=== PATIENT | male | born 1990 | race American Indian/Alaskan Native ===

== ENCOUNTER 2016-07-05 14:57 | Emergency (ER) | payer SELFPAY ==
[2016-07-05 15:14] VITALS: BP 105/69
[2016-07-05] MEDS ORDERED: REGLAN IV ONE (16:35)
--- NOTE | 2016-07-05 16:35 | Emergency Department Report ---
ED Headache HPI - General Chief Complaint: Headache Stated Complaint: MIGRAINES Time Seen by Provider: 07/05/16 16:23 - History of Present Illness Initial Comments: 26-year-old male past medical history migraine headaches presents with complaint of 2-3 days of migraine headache worsening waxing and waning patient states that he took Motrin with only mild relief of pain. Patient states that he classically experiences mild photophobia when he gets migraine headaches. Denies any fevers chills or neck rigidity currently. Awake alert and oriented 3 does not appear to be in acute distress denies any nausea or vomiting. Denies any head trauma. Timing/Duration: 24 hours, waxing and waning Quality: moderate Head Injury Location: frontal Recent Head Trauma: frequent headaches Modifying Factors: improves with: exposure to light Allergies/Adverse Reactions: Allergies No Known Allergies Allergy (Verified 06/19/13 09:46) Home Medications: Ambulatory Orders Ibuprofen [Motrin] 600 mg PO Q8H PRN #20 tablet 06/18/13 Metoclopramide [Reglan] 10 mg PO BID PRN #12 tab 07/05/16 Naproxen [Naprosyn TAB] 500 mg PO BID PRN #25 tablet 07/05/16 ED Review of Systems ROS: Stated complaint: MIGRAINES Other details as noted in HPI Constitutional: denies: chills, fever Eyes: denies: eye pain, eye discharge, vision change ENT: denies: ear pain, throat pain Respiratory: denies: cough, shortness of breath, wheezing Cardiovascular: denies: chest pain, palpitations Endocrine: no symptoms reported Gastrointestinal: denies: abdominal pain, nausea, diarrhea Genitourinary: denies: urgency, dysuria Musculoskeletal: denies: back pain, joint swelling, arthralgia Skin: denies: rash, lesions Neurological: denies: headache, weakness, paresthesias Psychiatric: denies: anxiety, depression Hematological/Lymphatic: denies: easy bleeding, easy bruising ED Past Medical Hx - Past Medical History Hx Headaches / Migraines: Yes Hx Psychiatric Treatment: Yes (Per Pt - In [place] about 6 years ago) Additional medical history: anemia, sinus problems - Social History Smoking Status: Current Every Day Smoker Substance Use Type: None - Medications Home Medications: Home Medications Medication Instructions Recorded Confirmed Last Taken Type Ibuprofen [Motrin] 600 mg PO Q8H PRN #20 tablet 06/18/13 02/25/15 06/19/13 05: 30 Rx Metoclopramide [Reglan] 10 mg PO BID PRN #12 tab 07/05/16 Unknown Rx Naproxen [Naprosyn TAB] 500 mg PO BID PRN #25 tablet 07/05/16 Unknown Rx ED Physical Exam - General Limitations: No Limitations General appearance: alert, in no apparent distress - Head Head exam: Present: atraumatic, normocephalic - Eye Eye exam: Present: normal appearance, PERRL, EOMI - ENT ENT exam: Present: mucous membranes moist - Neck Neck exam: Present: normal inspection, full ROM - Respiratory Respiratory exam: Present: normal lung sounds bilaterally. Absent: respiratory distress - Cardiovascular Cardiovascular Exam: Present: regular rate, normal rhythm. Absent: systolic murmur, diastolic murmur, rubs, gallop - GI/Abdominal GI/Abdominal exam: Present: soft, normal bowel sounds - Rectal Rectal exam: Present: deferred - Extremities Exam Extremities exam: Present: normal inspection - Back Exam Back exam: Present: normal inspection - Neurological Exam Neurological exam: Present: alert, oriented X3, CN II-XII intact, normal gait - Expanded Neurological Exam Expanded Patient oriented to: Present: person, place, time Cerebellar function: Finger to Nose: Normal, Heel to [place]: Normal, Romberg: Normal Sensory exam: Upper Extremity Light Touch: Normal, Lower Extremity Light Touch: Normal Motor strength exam: RUE: 5, LUE: 5, RLE: 5, LLE: 5 Best Eye Response ([place]): (4) open spontaneously Best Motor Response ([place]): (6) obeys commands Best Verbal Response ([place]): (5) oriented [place] Total: 15 - Psychiatric Psychiatric exam: Present: normal affect, normal mood - Skin Skin exam: Present: warm, dry, intact, normal color. Absent: rash ED Course Vital Signs 07/05/16 15:11 Temperature 98.6 F Pulse Rate 65 Respiratory 18 Rate Blood Pressure 105/69 O2 Sat by Pulse 100 Oximetry ED Medical Decision Making - Medical Decision Making A/P: Migraine headache 1-patient feels significant relief of migraine with 1 dose of Reglan, headache currently 2 out of 10 initially 9 out of 10 2-discharge patient with Reglan and naproxen when necessary 3-will give patient follow up with primary care and neurology as patient states he has not seen a neurologist for his history of migraine headaches has been experiencing migraines since he was a child 4-patient has no neurological deficits on clinical exam Critical care attestation.: If time is entered above; I have spent that time in minutes in the direct care of this critically ill patient, excluding procedure time. ED Disposition Clinical Impression: Migraine Qualifiers: Migraine type: without aura Status migrainosus presence: without status migrainosus Intractability: not intractable Qualified Code(s): G43.009 - Migraine without aura, not intractable, without status migrainosus Disposition: DISCHARGED TO HOME OR SELFCARE Is pt being admited?: No Does the pt Need Aspirin: No Condition: Stable Instructions: Migraine Headache (ED), Acute Headache (ED) Prescriptions: Metoclopramide [Reglan] 10 mg PO BID PRN #12 tab PRN Reason: Headache Naproxen [Naprosyn TAB] 500 mg PO BID PRN #25 tablet PRN Reason: Headache Referrals: DELISA GAMA MD [Staff Physician] - 3-5 Days [facility] [Provider Group] - 3-5 Days JULIO MILLER MD [Staff Physician] - 3-5 Days Time of Disposition: 17:54
== END 2016-07-05 18:09 | disposition home or self-care (01) ==
LOC: ED 14:57
DX: G43.009 Migraine without aura, not intractable, without status migrainosus (principal); F17.200 Nicotine dependence, unspecified, uncomplicated
CPT/HCPCS: 96374; 99282; J2765

== ENCOUNTER 2016-09-05 17:15 | Emergency (ER) | payer SELFPAY ==
[2016-09-05 17:48] LABS: Basophils % (Auto) 0.5 % (0.0-1.8); Eosinophils % (Auto) 1.5 % (0.0-4.3); Hematocrit 43.5 % (35.5-45.6); Hemoglobin 13.7 gm/dl (11.8-15.2); Mean Corpuscular HGB Conc 32 % (32-34); Mean Corpuscular Volume 80 fl (84-94); Platelet Count 228 K/mm3 (140-440); Red Blood Count 5.42 M/mm3 (3.65-5.03); Red Cell Distribution Width 15.7 % (13.2-15.2); White Blood Count 5.2 K/mm3 (4.5-11.0)
[2016-09-05 17:56] LABS: Mean Corpuscular Hemoglobin 25 pg (28-32)
[2016-09-05 18:04] LABS: Anion Gap 15 mmol/L; Blood Urea Nitrogen 13 mg/dL (9-20); Carbon Dioxide 27 mmol/L (22-30); Chloride 103.5 mmol/L (98-107); Glucose 85 mg/dL (75-100); Potassium 3.9 mmol/L (3.6-5.0); Sodium 142 mmol/L (137-145)
[2016-09-05 20:28] VITALS: BP 105/65
--- NOTE | 2016-09-05 21:47 | Emergency Department Report ---
ED Chest Pain HPI - General Chief Complaint: Chest Pain Stated Complaint: CHEST PAIN/HEADACHE Time Seen by Provider: 09/05/16 21:35 Source: patient Mode of arrival: Ambulatory Limitations: No Limitations - History of Present Illness Initial Comments: 26-year-old male with no past medical history presenting to the emergency room complaining of chest pain. Patient states pain started approximately 2 months prior. Patient believes the inciting factor is because he smoke cigarettes. Patient states pain is located in his anterior chest wall, pressure sensation, nonradiating no relaxing or worsening factors. He states he was on his way to work today when he decided that he should evaluate the pain because he did wanted to be getting serious. Patient states now the pain is totally resolved while in ED MD Complaint: chest pain -: month(s) (2) Onset: during rest Pain Location: other (anterior chest wall ) Pain Radiation: none Severity: moderate Severity scale (0 -10): 0 Quality: aching, heaviness Consistency: intermittent Improves With: nothing Worsens With: nothing Other Symptoms: cough. denies: rash, acid taste in mouth, leg swelling, palpitations, burping - Related Data Previous Rx's Medication Instructions Recorded Last Taken Type Ibuprofen [Motrin] 600 mg PO Q8H PRN #20 tablet 06/18/13 06/19/13 05:30 Rx Metoclopramide [Reglan] 10 mg PO BID PRN #12 tab 07/05/16 Unknown Rx RX: Naproxen [Naprosyn TAB] 500 mg PO BID PRN #25 tablet 07/05/16 Unknown Rx Allergies Allergy/AdvReac Type Severity Reaction Status Date / Time No Known Allergies Allergy Verified 06/19/13 09:46 Heart Score - HEART Score History: Slightly suspicious EKG: Non-specific Age: < 45 Risk factors: No known risk factors Troponin: < normal limit HEART Score: 1 ED Review of Systems ROS: Stated complaint: CHEST PAIN/HEADACHE Other details as noted in HPI Constitutional: denies: chills, fever Eyes: denies: eye pain, eye discharge, vision change ENT: denies: ear pain, throat pain Respiratory: denies: cough, shortness of breath, wheezing Cardiovascular: chest pain. denies: palpitations Endocrine: no symptoms reported Gastrointestinal: denies: abdominal pain, nausea, diarrhea Genitourinary: denies: urgency, dysuria Musculoskeletal: denies: back pain, joint swelling, arthralgia Skin: denies: rash, lesions Neurological: denies: headache, weakness, paresthesias Psychiatric: denies: anxiety, depression Hematological/Lymphatic: denies: easy bleeding, easy bruising ED Past Medical Hx - Past Medical History Previous Medical History?: Yes Hx Headaches / Migraines: Yes Hx Psychiatric Treatment: Yes (Per Pt - In [place] about 6 years ago) Additional medical history: anemia, sinus problems - Surgical History Past Surgical History?: No - Social History Smoking Status: Current Every Day Smoker Substance Use Type: Alcohol - Medications Home Medications: Home Medications Medication Instructions Recorded Confirmed Last Taken Type Ibuprofen [Motrin] 600 mg PO Q8H PRN #20 tablet 06/18/13 02/25/15 06/19/13 05: 30 Rx Metoclopramide [Reglan] 10 mg PO BID PRN #12 tab 07/05/16 Unknown Rx RX: Naproxen [Naprosyn TAB] 500 mg PO BID PRN #25 tablet 07/05/16 Unknown Rx ED Physical Exam - General Limitations: No Limitations General appearance: alert, in no apparent distress - Head Head exam: Present: atraumatic, normocephalic - Eye Eye exam: Present: normal appearance - ENT ENT exam: Present: mucous membranes moist - Neck Neck exam: Present: normal inspection - Respiratory Respiratory exam: Present: normal lung sounds bilaterally. Absent: respiratory distress - Cardiovascular Cardiovascular Exam: Present: regular rate, normal rhythm. Absent: systolic murmur, diastolic murmur, rubs, gallop - GI/Abdominal GI/Abdominal exam: Present: soft, normal bowel sounds - Rectal Rectal exam: Present: deferred - Extremities Exam Extremities exam: Present: normal inspection, other (no lower extremity edema ) . Absent: calf tenderness - Back Exam Back exam: Present: normal inspection - Neurological Exam Neurological exam: Present: alert, oriented X3 - Psychiatric Psychiatric exam: Present: normal affect, normal mood - Skin Skin exam: Present: warm, dry, intact, normal color. Absent: rash ED Course Vital Signs 09/05/16 09/05/16 17:27 20:22 Temperature 98.0 F 98.4 F Pulse Rate 60 56 L Respiratory 16 16 Rate Blood Pressure 127/79 Blood Pressure 105/65 [Left] O2 Sat by Pulse 100 100 Oximetry SHAILA score - Shaila Score Age > 65: (0) No Aspirin use within the Past 7 Days: (0) No 3 or more CAD Risk Factors: (0) No 2 or more Angina events in past 24 hrs: (0) No Known CAD with more than 50% Stenosis: (0) No Elevated Cardiac Markers: (0) No ST Deviation Greater than 0.5mm: (0) No SHAILA Score: 0 ED Medical Decision Making - Lab Data Result diagrams: 09/05/16 17:31 09/05/16 17:31 - EKG Data EKG shows normal: sinus rhythm (rate 54 ), axis, ST-T waves (T wave inversion V1 -V3 ) Rate: normal - EKG Data When compared to previous EKG there are: previous EKG unavailable Interpretation: nonspecific ST-T wave ton - Medical Decision Making 26 male with no past medical history is presenting to the emergency department complaining chest pain. Upon my initial assessment he was requesting discharge home. I explained to patient that out completely. Assessment and there is still some concern that had and I wanted to order repeat troponin and d-dimer however patient states "I have been here for too long and a half to go". I discussed with patient the risk of leaving without a complete evaluaation of chest pain however pt states he only wanted a work excuse for today and wanted to leave. pt understands he can return to ED to seek medical attention Critical care attestation.: If time is entered above; I have spent that time in minutes in the direct care of this critically ill patient, excluding procedure time. ED Disposition Clinical Impression: Chest pain Disposition: - LEFT AGAINST MED ADVICE Is pt being admited?: No Does the pt Need Aspirin: No Condition: Fair Instructions: Chest Pain (ED) Referrals: PRIMARY CARE, [Primary Care Provider] - 3-5 Days EDWIN RAY MD [Staff Physician] - 3-5 Days Forms: AMA Form
== END 2016-09-05 21:52 | disposition left against medical advice (07) ==
LOC: ED 17:15
DX: R07.89 Other chest pain (principal); G43.909 Migraine, unspecified, not intractable, without status migrainosus; F17.200 Nicotine dependence, unspecified, uncomplicated
CPT/HCPCS: 36415; 80048; 84484; 85025; 93005; 93010; 99284

== ENCOUNTER 2016-10-25 11:10 | Emergency (ER) | payer SELFPAY ==
[2016-10-25 11:29] VITALS: BP 117/73
[2016-10-25] MEDS ORDERED: BOOSTRIX IM ONE (12:39)
--- NOTE | 2016-10-25 13:26 | XRay Report ---
LEFT FOOT THREE VIEWS: 10/25/16 12:39:00 CLINICAL: Search for broken glass. FINDINGS: Normal bones, joints and soft tissues. No foreign body. IMPRESSION: Normal.
--- NOTE | 2016-10-25 14:55 | Emergency Department Report ---
Entered by RADHA HELLER, acting as scribe for BEBO STEVENS PA. ED Laceration HPI - HPI Chief Complaint: Wound/Laceration Stated Complaint: POSS INFECTION IN LEFT FOOT Time Seen by Provider: 10/25/16 12:25 Occurred When: Yesterday Location: (left foot so) Severity: moderate (7/10) Tetanus Status: Not up to Date Laceration Symptoms: Yes Foreign Body Sensation (patient believed that he has a piece of glass in his left foot episode), Yes Pain (3/10 with), No Numbness, No Weakness Other History: 26 y/o male presents to the ED c/o laceration to bottom of left foot that occurred last night. Associated symptom include pain but he denies foreign body sensation, numbnes, tingling, fever, chills, nausea and vomiting. Pain is described as 7/10 on a severity scale. Patient states he stepped on glass last nigh. No alleviating factors but worse with pressure. Denies taking OTC meds. NKDA. TDAP not UTD. ED Review of Systems ROS: Stated complaint: POSS INFECTION IN LEFT FOOT Other details as noted in HPI Comment: All other systems reviewed and negative Constitutional: denies: chills, fever Respiratory: no symptoms reported Cardiovascular: denies: chest pain, palpitations, edema, syncope Gastrointestinal: denies: nausea, vomiting Musculoskeletal: arthralgia. denies: back pain, joint swelling, myalgia Skin: other (laceration to bottom of left foot, pain, denies: foreign body sensation) Neurological: denies: headache, weakness, numbness, paresthesias, confusion, abnormal gait, vertigo ED Past Medical Hx - Past Medical History Previous Medical History?: Yes Hx Headaches / Migraines: Yes Hx Psychiatric Treatment: Yes (Per Pt - In [place] about 6 years ago) Additional medical history: anemia, sinus problems - Surgical History Past Surgical History?: No - Family History Family history: no significant - Social History Smoking Status: Current Every Day Smoker Substance Use Type: Alcohol - Medications Home Medications: Home Medications Medication Instructions Recorded Confirmed Last Taken Type Cephalexin [Keflex] 500 mg PO Q8HR #15 cap 10/25/16 Unknown Rx Ibuprofen [Motrin] 600 mg PO Q8H PRN #15 tablet 10/25/16 Unknown Rx Laceration Physical Exam - Exam General: Vital signs noted. No distress. Alert and acting appropriately. This is a 26-year-old male well-nourished well-developed in no acute distress. Head: Normocephalic ,atraumatic Extremity: No clubbing, cyanosis or edema. +2 pulses. No neurovascular compromise Lungs: Auscultated bilaterally, no rhonchi wheezes or CV: S1-S2, regular rate rhythm negative murmur Laceration Location: Lower Extremity (left foot heel area superficial laceration , no foreign seen or felt, tender to palpate, .25 cm laceration) Laceration Exam: Yes Normal Distal CMS, No Foreign Body (none seen), No Exposed Tendon, Vessel, or Nerve, No Tendon Injury ED Course Vital Signs 10/25/16 11:25 Temperature 98.4 F Pulse Rate 85 Respiratory 22 Rate Blood Pressure 117/73 O2 Sat by Pulse 99 Oximetry - Reevaluation(s) Reevaluation #1: 10/25/16 14:47 Area to the left foot at so soaked in iodine and normal saline and sterile gauze dressing placed inside. ED Medical Decision Making - Radiology Data Radiology results: report reviewed X-ray report of left foot revealed no foreign body, no fracture dislocation or soft tissue swelling. - Medical Decision Making ED course: Seen here report that he stepped on glass and believes that he has a piece of glass in his left foot. Physical findings revealed no foreign body. Physical findings showed no foreign body. With superficial laceration to left toe with tenderness to palpate. No drainage noted. This happened yesterday so unable to suture laceration. Patient instructed on x-ray reports and a instructed him that I'll put him on Motrin and Keflex. tetanus vaccine updated injection . Diagnostics: X-ray left foot 3 views revealed no foreign body, no fracture or dislocation. Assessment/Plan 1. Arthralgia left foot 2. Puncture wound-no foreign body Patient discharged home with prescription for Motrin and Keflex and to follow up with [facility] in 3-5 days Critical care attestation.: If time is entered above; I have spent that time in minutes in the direct care of this critically ill patient, excluding procedure time. ED Disposition Clinical Impression: Arthralgia of foot, left Puncture wound of left foot Qualifiers: Encounter type: initial encounter Qualified Code(s): S91.332A - Puncture wound without foreign body, left foot, initial encounter Disposition: DC-01 TO HOME OR SELFCARE Is pt being admited?: No Does the pt Need Aspirin: No Condition: Stable Instructions: Arthralgia (ED), Puncture Wound (ED) Additional Instructions: Please keep affected area clean and dry Take Medication as prescribed Follow up at [facility] in 3-5 days Prescriptions: Cephalexin [Keflex] 500 mg PO Q8HR #15 cap Ibuprofen [Motrin] 600 mg PO Q8H PRN #15 tablet PRN Reason: Pain Referrals: [facility] [Outside] - 3-5 Days Forms: Work/School Release Form(ED) This documentation as recorded by the PINA miller ELIZABETH,accurately reflects the service I personally performed and the decisions made by ,BEBO STEVENS PA.
== END 2016-10-25 15:08 | disposition home or self-care (01) ==
LOC: ED 11:10
DX: S91.332A Puncture wound without foreign body, left foot, initial encounter (principal); G43.909 Migraine, unspecified, not intractable, without status migrainosus; F17.200 Nicotine dependence, unspecified, uncomplicated; W45.8XXA Other foreign body or object entering through skin, initial encounter; Y93.9 Activity, unspecified; Y92.9 Unspecified place or not applicable; Y99.9 Unspecified external cause status
CPT/HCPCS: 90471; 90715

== ENCOUNTER 2017-06-16 00:35 | Emergency (ER) | payer SELFPAY ==
[2017-06-16 01:10] VITALS: BP 121/70
[2017-06-16 03:16] LABS: Bacteria,Urine 1+ /HPF (Negative); Bilirubin,Urine NEG (Negative); Blood,Urine NEG (Negative); Calcium Oxalate Crystals,Urine FEW; Color,Urine Yellow (Yellow); Mucus,Urine 3+ /HPF; Protein,Urine <15 mg/dL mg/dL (Negative); Urobilinogen,Urine < 2.0 mg/dL (<2.0)
[2017-06-16] MEDS ORDERED: ZITHROMAX PO ONE ×2 (05:27→06:57)
[2017-06-16] MEDS ORDERED: ROCEPHIN IM ONE (05:27)
[2017-06-16] MEDS ORDERED: XYLOCAINE 1% MPF 5 mL INFILTRATI ONE (05:27)
--- NOTE | 2017-06-16 05:28 | Emergency Department Report ---
ED Male HPI - General Chief complaint: Urogenital-Male Stated complaint: BODY PAIN,NO SLEEP Time Seen by Provider: 06/16/17 05:19 Source: patient Mode of arrival: Ambulatory Limitations: No Limitations - History of Present Illness MD Complaint: penile discharge - Related Data Previous Rx's Medication Instructions Recorded Last Taken Type Clindamycin [Clindamycin CAP] 300 mg PO Q8H #30 cap 01/06/17 Unknown Rx Ondansetron [Zofran Odt] 4 mg PO Q8HR PRN #14 tab.rapdis 01/06/17 Unknown Rx Prednisone [predniSONE 10 mg 10 mg PO .TAPER #1 tab.ds.pk 01/06/17 Unknown Rx (6-Day Pack, 21 Tabs)] traMADol [Ultram 50 MG tab] 50 mg PO Q4HR PRN #14 tablet 01/06/17 Unknown Rx Allergies Allergy/AdvReac Type Severity Reaction Status Date / Time No Known Allergies Allergy Verified 06/19/13 09:46 ED Review of Systems ROS: Stated complaint: BODY PAIN,NO SLEEP Other details as noted in HPI ED Past Medical Hx - Past Medical History Previous Medical History?: Yes Hx Headaches / Migraines: Yes Hx Psychiatric Treatment: Yes (Per Pt - In [place] about 6 years ago) Additional medical history: anemia, sinus problems - Surgical History Past Surgical History?: No - Social History Smoking Status: Current Every Day Smoker Substance Use Type: None - Medications Home Medications: Home Medications Medication Instructions Recorded Confirmed Last Taken Type Clindamycin [Clindamycin CAP] 300 mg PO Q8H #30 cap 01/06/17 Unknown Rx Ondansetron [Zofran Odt] 4 mg PO Q8HR PRN #14 tab.rapdis 01/06/17 Unknown Rx Prednisone [predniSONE 10 mg 10 mg PO .TAPER #1 tab.ds.pk 01/06/17 Unknown Rx (6-Day Pack, 21 Tabs)] traMADol [Ultram 50 MG tab] 50 mg PO Q4HR PRN #14 tablet 01/06/17 Unknown Rx ED Physical Exam - General Limitations: No Limitations ED Course Vital Signs 06/16/17 06/16/17 01:03 01:17 Temperature 98.1 F 98.0 F Pulse Rate 57 L 59 L Respiratory 18 Rate Blood Pressure 121/70 121/70 O2 Sat by Pulse 100 99 Oximetry Critical care attestation.: If time is entered above; I have spent that time in minutes in the direct care of this critically ill patient, excluding procedure time. ED Disposition Condition: Stable Referrals: MONTRELL BAUTISTA MD [Primary Care Provider] - 3-5 Days
--- NOTE | 2017-06-16 06:35 | Emergency Department Report ---
Chief Complaint: Urogenital-Male Stated Complaint: BODY PAIN,NO SLEEP Time Seen by Provider: 06/16/17 05:19 - HPI History of Present Illness: 27-year-old male past medical history ? Mental health disorder presents with multiple complaints including body aches and what he describes as burning sensation near his genitals. Patient has somewhat rambling speech and flight of ideas when I talk to him. Patient does express that he wants to speak to a social services assistant or a counselor because he has multiple personal social and psychiatric issues that he needs help with. Patient states that he has had had multiple institutions for his mental illness in the past. Patient states that he is currently undomiciled. Patient is awake alert and oriented 3 and denies suicidal or homicidal ideation. States he does have a history of marijuana smoking. Denies any other current drug use. Patient is primarily concerned about this burning sensation in her penis. Denies any external lesions possible discharge reported. States he wants to discuss his personal issues with a counselor repeatedly. - Exam Vital Signs: Vital Signs 06/16/17 06/16/17 01:03 01:17 Temperature 98.1 F 98.0 F Pulse Rate 57 L 59 L Respiratory 18 Rate Blood Pressure 121/70 121/70 O2 Sat by Pulse 100 99 Oximetry Physical Exam: Heart S1-S2 lungs clear to auscultation. Awake alert and oriented 3 MSE screening note: Focused history and physical exam performed. Due to findings the following was ordered: Screening Assessment/Plan/Differential Dx: Possible flight of ideas, possible manic episode, possible dysuria 1- This initial assessment/diagnostic orders/clinical plan/ treatment(s) is/are subject to change based on pt's health status, clinical progression and re- assessment by fellow clinical providers in the ED. Further treatment and workup at subsequent clinical provers discretion. Patient/guardians urged not to elope from ED as their condition may be serious if not clinically assessed and managed. 2-it is unclear to me precisely why the patient came to the ED but in speaking to him it is apparent that he does want to discuss his social and personal issues with a social services assistant or a mental health counselor. I informed Dr. Kaur and charge nurse Yessica of my encounter with the patient. I asked the patient directly if he is suicidal or homicidal or if he has any current hallucinations. Patient denies any of these things at this time. I did however the patient has somewhat pressured speech and is somewhat tangential during my interview. 3-I requested the charge nurse move the patient to maintain a decent that he can speak to a social services assistant and have evaluation by ED attending and mental health counselor ED Disposition for MSE Condition: Stable Referrals: MONTRELL BAUTISTA MD [Primary Care Provider] - 3-5 Days
[2017-06-16 06:44] LABS: Basophils % (Auto) 0.5 % (0.0-1.8); Eosinophils # (Auto) 0.1 K/mm3 (0.0-0.4); Eosinophils % (Auto) 2.4 % (0.0-4.3); Hematocrit 43.5 % (35.5-45.6); Hemoglobin 13.6 gm/dl (11.8-15.2); Lymphocytes % (Auto) 51.4 % (13.4-35.0); Mean Corpuscular HGB Conc 31 % (32-34); Mean Corpuscular Volume 82 fl (84-94); Monocytes # (Auto) 0.4 K/mm3 (0.0-0.8); Monocytes % (Auto) 8.9 % (0.0-7.3); Platelet Count 219 K/mm3 (140-440); Red Cell Distribution Width 14.8 % (13.2-15.2)
[2017-06-16 06:46] LABS: Mean Corpuscular Hemoglobin 26 pg (28-32)
--- NOTE | 2017-06-16 06:55 | Emergency Department Report ---
ED General Adult HPI - General Chief complaint: Urogenital-Male Stated complaint: BODY PAIN,NO SLEEP Time Seen by Provider: 06/16/17 05:19 Source: patient Mode of arrival: Ambulatory Limitations: No Limitations - History of Present Illness Initial comments: This is a 27 year old male who states he had an HIV test 2 months ago but he "didn't like the way they explained it to me". I think I can presume that he is HIV positive and noncompliant with follow-up. He complains of penile burning but no discharge. He has no other symptoms. He denies fever he is able to urinate fine and has not been urinating frequently. He has no other specific complaint. He is noncompliant with follow-up most likely for a positive HIV test although he didn't frankly admit it. He states he was tested for HIV at the building next to the [facility]. I suspect this may be the [facility] Department. -: days(s) Associated Symptoms: denies other symptoms - Related Data Previous Rx's Medication Instructions Recorded Last Taken Type Clindamycin [Clindamycin CAP] 300 mg PO Q8H #30 cap 01/06/17 Unknown Rx Ondansetron [Zofran Odt] 4 mg PO Q8HR PRN #14 tab.rapdis 01/06/17 Unknown Rx Prednisone [predniSONE 10 mg 10 mg PO .TAPER #1 tab.ds.pk 01/06/17 Unknown Rx (6-Day Pack, 21 Tabs)] traMADol [Ultram 50 MG tab] 50 mg PO Q4HR PRN #14 tablet 01/06/17 Unknown Rx Allergies Allergy/AdvReac Type Severity Reaction Status Date / Time No Known Allergies Allergy Verified 06/19/13 09:46 ED Review of Systems ROS: Stated complaint: BODY PAIN,NO SLEEP Other details as noted in HPI Constitutional: denies: chills, fever Eyes: denies: eye pain, eye discharge, vision change ENT: denies: ear pain, throat pain Respiratory: denies: cough, shortness of breath, wheezing Cardiovascular: denies: chest pain, palpitations Endocrine: no symptoms reported Gastrointestinal: denies: abdominal pain, nausea, diarrhea, melena Genitourinary: as per HPI, other (states genitalia looks normal and no rash or eruptions no discharge). denies: urgency, dysuria, frequency, hematuria, discharge, testicular pain, testicular mass Musculoskeletal: denies: back pain, joint swelling, arthralgia Skin: denies: rash, lesions Neurological: denies: headache, weakness, paresthesias Psychiatric: denies: anxiety, depression Hematological/Lymphatic: denies: easy bleeding, easy bruising ED Past Medical Hx - Past Medical History Previous Medical History?: Yes Hx Headaches / Migraines: Yes Hx Psychiatric Treatment: Yes (Per Pt - In [place] about 6 years ago) Additional medical history: anemia, sinus problems - Surgical History Past Surgical History?: No - Social History Smoking Status: Current Every Day Smoker Substance Use Type: None - Medications Home Medications: Home Medications Medication Instructions Recorded Confirmed Last Taken Type Clindamycin [Clindamycin CAP] 300 mg PO Q8H #30 cap 01/06/17 Unknown Rx Ondansetron [Zofran Odt] 4 mg PO Q8HR PRN #14 tab.rapdis 01/06/17 Unknown Rx Prednisone [predniSONE 10 mg 10 mg PO .TAPER #1 tab.ds.pk 01/06/17 Unknown Rx (6-Day Pack, 21 Tabs)] traMADol [Ultram 50 MG tab] 50 mg PO Q4HR PRN #14 tablet 01/06/17 Unknown Rx ED Physical Exam - General Limitations: No Limitations General appearance: alert, in no apparent distress - Head Head exam: Present: atraumatic, normocephalic - Eye Eye exam: Present: normal appearance. Absent: scleral icterus - ENT ENT exam: Present: mucous membranes moist - Neck Neck exam: Present: normal inspection - Respiratory Respiratory exam: Present: normal lung sounds bilaterally. Absent: respiratory distress - Cardiovascular Cardiovascular Exam: Present: regular rate, normal rhythm. Absent: systolic murmur, diastolic murmur, rubs, gallop - GI/Abdominal GI/Abdominal exam: Present: soft, normal bowel sounds - Rectal Rectal exam: Present: deferred - Extremities Exam Extremities exam: Present: normal inspection - Back Exam Back exam: Present: normal inspection - Neurological Exam Neurological exam: Present: alert, oriented X3 - Psychiatric Psychiatric exam: Present: normal affect, normal mood - Skin Skin exam: Present: warm, dry, intact, normal color. Absent: rash ED Course Vital Signs 06/16/17 06/16/17 01:03 01:17 Temperature 98.1 F 98.0 F Pulse Rate 57 L 59 L Respiratory 18 Rate Blood Pressure 121/70 121/70 O2 Sat by Pulse 100 99 Oximetry ED Medical Decision Making - Lab Data Result diagrams: 06/16/17 06:15 Critical care attestation.: If time is entered above; I have spent that time in minutes in the direct care of this critically ill patient, excluding procedure time. ED Disposition Clinical Impression: Ureteritis, Psychiatric disorder Disposition: DC-01 TO HOME OR SELFCARE Is pt being admited?: No Does the pt Need Aspirin: No Condition: Stable Instructions: Urinary Tract Infection in Men (ED) Additional Instructions: Follow up with [facility] and [facility] Department. Referrals: [facility]. Mental Health [Outside] - 3-5 Days Time of Disposition: 06:55
[2017-06-16 06:59] LABS: BUN/Creatinine Ratio 13; Blood Urea Nitrogen 12 mg/dL (9-20); Hemolysis Index 7
== END 2017-06-16 07:18 | disposition home or self-care (01) ==
LOC: ED 00:35
DX: N28.89 Other specified disorders of kidney and ureter (principal); F99 Mental disorder, not otherwise specified; F17.200 Nicotine dependence, unspecified, uncomplicated; G43.909 Migraine, unspecified, not intractable, without status migrainosus; Z79.899 Other long term (current) drug therapy
CPT/HCPCS: 36415; 80048; 81001; 85025; 96372; 99283; G0480; J0696; 80320

== ENCOUNTER 2017-08-02 01:20 | Emergency (ER) | payer SELFPAY ==
[2017-08-02 02:17] LABS: Hematocrit 34.7 % (35.5-45.6); Hemoglobin 11.5 gm/dl (11.8-15.2); Mean Corpuscular HGB Conc 33 % (32-34); Mean Corpuscular Hemoglobin 27 pg (28-32); Mean Corpuscular Volume 80 fl (84-94); Platelet Count 171 K/mm3 (140-440); Red Blood Count 4.31 M/mm3 (3.65-5.03)
[2017-08-02 02:40] LABS: BUN/Creatinine Ratio 10; Blood Urea Nitrogen 6 mg/dL (9-20); Calcium 8.7 mg/dL (8.4-10.2); Hemolysis Index 13
[2017-08-02 04:20] LABS: Band Neutrophils # (Manual) 0.7 K/mm3; Basophils % (Manual) 0 % (0.0-1.8); Myelocytes # (Manual) 0.2 K/mm3; Total Cells Counted 100
[2017-08-02 04:23] LABS: Anisocytosis 1+; Platelet Estimate Consistent w Auto
[2017-08-02 07:53] LABS: Bilirubin,Urine NEG (Negative); Blood,Urine NEG (Negative); Color,Urine Straw (Yellow); Protein,Urine <15 mg/dL mg/dL (Negative); Urobilinogen,Urine < 2.0 mg/dL (<2.0)
[2017-08-02 08:00] LABS: RBC,Urine < 1.0 /HPF (0.0-6.0); WBC,Urine < 1.0 /HPF (0.0-6.0)
[2017-08-02 08:02] LABS: Amphetamine Screen,Urine PRESUMPTIVE NEGATIVE; Benzodiazepines Screen,Urine PRESUMPTIVE NEGATIVE; Cannabinoid Screen,Urine PRESUMPTIVE NEGATIVE; Cocaine Screen,Urine PRESUMPTIVE NEGATIVE; Methadone Screen,Urine PRESUMPTIVE NEGATIVE; Opiate Screen,Urine PRESUMPTIVE NEGATIVE
[2017-08-02] MEDS ORDERED: MORPHINE IM ONE (09:56)
[2017-08-02] MEDS ORDERED: ZOFRAN IM ONE (09:56)
[2017-08-02] MEDS ORDERED: FIORICET PO ONE (09:56)
--- NOTE | 2017-08-02 10:05 | Emergency Department Report ---
HPI - General Chief Complaint: Pain General Time Seen by Provider: 08/02/17 09:48 - HPI HPI: Room 10 The patient is a 27-year-old male presenting with a chief complaint of migraine headache. The patient states he's had a diffuse headache consistent with his migraine for several months. Patient gets his pain score of 9/10. Patient denies any recent preceding trauma. Patient denies nausea/vomiting or fever. The patient admits to auditory hallucinations stating he hears "a lot of arguing." Patient denies visual hallucinations, suicidal or homicidal ideation. Location: Head Duration: Months Quality: Migraine Severity: 11/16 Modifying factors: [see above] Context: [see above] Mode of transportation: Unknown ED Past Medical Hx - Past Medical History Previous Medical History?: Yes Hx Headaches / Migraines: Yes Hx Psychiatric Treatment: Yes (Per Pt - In [place] about 6 years ago, bipolar schizophrenia) Additional medical history: anemia, sinus problems - Surgical History Past Surgical History?: No - Family History Family history: no significant - Social History Smoking Status: Current Every Day Smoker (2/3 pack per day) Substance Use Type: None (denies illicit drug use), Alcohol (moderate) - Medications Home Medications: Home Medications Medication Instructions Recorded Confirmed Last Taken Type Clindamycin [Clindamycin CAP] 300 mg PO Q8H #30 cap 01/06/17 Unknown Rx Ondansetron [Zofran Odt] 4 mg PO Q8HR PRN #14 tab.rapdis 01/06/17 Unknown Rx Prednisone [predniSONE 10 mg 10 mg PO .TAPER #1 tab.ds.pk 01/06/17 Unknown Rx (6-Day Pack, 21 Tabs)] traMADol [Ultram 50 MG tab] 50 mg PO Q4HR PRN #14 tablet 01/06/17 Unknown Rx Butalb/Acetamin/Caff 50-325-40 2 tab PO Q8HR PRN #14 tablet 08/02/17 Unknown Rx [Fioricet] ED Review of Systems ROS: Stated complaint: BODY PAIN,MIGRANE Other details as noted in HPI Constitutional: denies: fever Gastrointestinal: denies: nausea, vomiting Neurological: headache Psychiatric: auditory hallucinations. denies: visual hallucinations, homicidal thoughts, suicidal thoughts Physical Exam - Physical Exam Vital Signs: Vital Signs 08/02/17 08/02/17 08/02/17 01:18 01:29 08:55 Temperature 98.3 F 98.3 F 98.0 F Pulse Rate 100 H 95 H 93 H Respiratory 18 20 14 Rate Blood Pressure 136/92 136/92 Blood Pressure 136/92 113/68 [Right] O2 Sat by Pulse 100 100 95 Oximetry Physical Exam: GENERAL: The patient is well-developed well-nourished male lying on stretcher not appearing to be in acute distress. [] HEENT: Normocephalic. Atraumatic. Extraocular motions are intact. Patient has moist mucous membranes. NECK: Supple. No meningitic signs are noted. Trachea midline CHEST/LUNGS: Clear to auscultation. There is no respiratory distress noted. HEART/CARDIOVASCULAR: Regular. There is no tachycardia. There is no gallop rub or murmur. ABDOMEN: Abdomen is soft, nontender. Patient has normal bowel sounds. There is no abdominal distention. SKIN: There is no rash. There is no edema. There is no diaphoresis. NEURO: The patient is awake, alert, and oriented. The patient is cooperative. The patient has no focal neurologic deficits. The patient has normal speech. Cranial nerves II through XII grossly intact, no drift MUSCULOSKELETAL:There is no evidence of acute injury. ED Course Vital Signs 08/02/17 08/02/17 08/02/17 01:18 01:29 08:55 Temperature 98.3 F 98.3 F 98.0 F Pulse Rate 100 H 95 H 93 H Respiratory 18 20 14 Rate Blood Pressure 136/92 136/92 Blood Pressure 136/92 113/68 [Right] O2 Sat by Pulse 100 100 95 Oximetry ED Medical Decision Making - Lab Data Result diagrams: 08/02/17 01:58 08/02/17 01:58 Laboratory Tests 08/02/17 08/02/17 08/02/17 01:58 01:58 01:58 WBC RBC Hgb Hct MCV MCH MCHC RDW Plt Count Add Manual Diff Total Counted Seg Neuts % (Manual) Band Neutrophils % Lymphocytes % (Manual) Reactive Lymphs % (Man) Monocytes % (Manual) Eosinophils % (Manual) Basophils % (Manual) Metamyelocytes % Myelocytes % Promyelocytes % Blast Cells % Nucleated RBC % Seg Neutrophils # Man Band Neutrophils # Lymphocytes # (Manual) Abs React Lymphs (Man) Monocytes # (Manual) Eosinophils # (Manual) Basophils # (Manual) Metamyelocytes # Myelocytes # Promyelocytes # Blast Cells # WBC Morphology Hypersegmented Neuts Hyposegmented Neuts Hypogranular Neuts Smudge Cells Toxic Granulation Toxic Vacuolation Dohle Bodies Pelger-Huet Anomaly Nan Rods Platelet Estimate Clumped Platelets Plt Clumps, EDTA Large Platelets Giant Platelets Platelet Satelliting Plt Morphology Comment RBC Morphology Dimorphic RBCs Polychromasia Hypochromasia Poikilocytosis Anisocytosis Microcytosis Macrocytosis Spherocytes Pappenheimer Bodies Sickle Cells Target Cells Tear Drop Cells Ovalocytes Helmet Cells Conner-Myton Bodies Cheney Rings [place] Cells Bite Cells Crenated Cell Elliptocytes Acanthocytes (Spur) Rouleaux Hemoglobin C Crystals Schistocytes Malaria parasites Franklyn Bodies Hem Pathologist Commnt Sodium 145 Potassium 4.5 Chloride 105.8 Carbon Dioxide 26 Anion Gap 18 BUN 6 L Creatinine 0.6 L Estimated GFR > 60 BUN/Creatinine Ratio 10 Glucose 89 Calcium 8.7 Urine Color Urine Turbidity Urine pH Ur Specific [place] Urine Protein Urine Glucose (UA) Urine Ketones Urine Blood Urine Nitrite Urine Bilirubin Urine Urobilinogen Ur Leukocyte Esterase Urine WBC (Auto) Urine RBC (Auto) U Epithel Cells (Auto) Salicylates < 0.3 L Urine Opiates Screen Urine Methadone Screen Acetaminophen < 5.0 L Ur Barbiturates Screen Ur Phencyclidine Scrn Ur Amphetamines Screen U Benzodiazepines Scrn Urine Cocaine Screen U Marijuana (THC) Screen Drugs of Abuse Note Plasma/Serum Alcohol 08/02/17 08/02/17 08/02/17 01:58 01:58 Unknown WBC 4.7 RBC 4.31 Hgb 11.5 L Hct 34.7 L MCV 80 L MCH 27 L MCHC 33 RDW 15.0 Plt Count 171 Add Manual Diff Complete Total Counted 100 Seg Neuts % (Manual) 42.0 Band Neutrophils % 14.0 Lymphocytes % (Manual) 23.0 Reactive Lymphs % (Man) 4.0 Monocytes % (Manual) 8.0 H Eosinophils % (Manual) 1.0 Basophils % (Manual) 0 Metamyelocytes % 3.0 Myelocytes % 5.0 Promyelocytes % 0 Blast Cells % 0 Nucleated RBC % 4.0 H Seg Neutrophils # Man 2.0 Band Neutrophils # 0.7 Lymphocytes # (Manual) 1.1 L Abs React Lymphs (Man) 0.2 Monocytes # (Manual) 0.4 Eosinophils # (Manual) 0.0 Basophils # (Manual) 0.0 Metamyelocytes # 0.1 Myelocytes # 0.2 Promyelocytes # 0.0 Blast Cells # 0.0 WBC Morphology Not Reportable Hypersegmented Neuts Not Reportable Hyposegmented Neuts Not Reportable Hypogranular Neuts Not Reportable Smudge Cells Not Reportable Toxic Granulation Not Reportable Toxic Vacuolation Not Reportable Dohle Bodies Not Reportable Pelger-Huet Anomaly Not Reportable Nan Rods Not Reportable Platelet Estimate Consistent w auto Clumped Platelets Not Reportable Plt Clumps, EDTA Not Reportable Large Platelets Not Reportable Giant Platelets Not Reportable Platelet Satelliting Not Reportable Plt Morphology Comment Not Reportable RBC Morphology Not Reportable Dimorphic RBCs Not Reportable Polychromasia Not Reportable Hypochromasia Not Reportable Poikilocytosis Not Reportable Anisocytosis 1+ Microcytosis Not Reportable Macrocytosis Not Reportable Spherocytes Not Reportable Pappenheimer Bodies Not Reportable Sickle Cells Not Reportable Target Cells Not Reportable Tear Drop Cells Not Reportable Ovalocytes Not Reportable Helmet Cells Not Reportable Conner-Myton Bodies Not Reportable [place] Rings Not Reportable Mitra Cells Not Reportable Bite Cells Not Reportable Crenated Cell Not Reportable Elliptocytes Not Reportable Acanthocytes (Spur) Not Reportable Rouleaux Not Reportable Hemoglobin C Crystals Not Reportable Schistocytes Not Reportable Malaria parasites Not Reportable Frank[place] Bodies Not Reportable Hem Pathologist Commnt No Sodium Potassium Chloride Carbon Dioxide Anion Gap BUN Creatinine Estimated GFR BUN/Creatinine Ratio Glucose Calcium Urine Color Straw Urine Turbidity Clear Urine pH 8.0 H Ur Specific [place] 1.005 Urine Protein <15 mg/dl Urine Glucose (UA) Neg Urine Ketones Neg Urine Blood Neg Urine Nitrite Neg Urine Bilirubin Neg Urine Urobilinogen < 2.0 Ur Leukocyte Esterase Neg Urine WBC (Auto) < 1.0 Urine RBC (Auto) < 1.0 U Epithel Cells (Auto) < 1.0 Salicylates Urine Opiates Screen Urine Methadone Screen Acetaminophen Ur Barbiturates Screen Ur Phencyclidine Scrn Ur Amphetamines Screen U Benzodiazepines Scrn Urine Cocaine Screen U Marijuana (THC) Screen Drugs of Abuse Note Plasma/Serum Alcohol < 0.01 08/02/17 Unknown WBC RBC Hgb Hct MCV MCH MCHC RDW Plt Count Add Manual Diff Total Counted Seg Neuts % (Manual) Band Neutrophils % Lymphocytes % (Manual) Reactive Lymphs % (Man) Monocytes % (Manual) Eosinophils % (Manual) Basophils % (Manual) Metamyelocytes % Myelocytes % Promyelocytes % Blast Cells % Nucleated RBC % Seg Neutrophils # Man Band Neutrophils # Lymphocytes # (Manual) Abs React Lymphs (Man) Monocytes # (Manual) Eosinophils # (Manual) Basophils # (Manual) Metamyelocytes # Myelocytes # Promyelocytes # Blast Cells # WBC Morphology Hypersegmented Neuts Hyposegmented Neuts Hypogranular Neuts Smudge Cells Toxic Granulation Toxic Vacuolation Dohle Bodies Pelger-Huet Anomaly Nan Rods Platelet Estimate Clumped Platelets Plt Clumps, EDTA Large Platelets Giant Platelets Platelet Satelliting Plt Morphology Comment RBC Morphology Dimorphic RBCs Polychromasia Hypochromasia Poikilocytosis Anisocytosis Microcytosis Macrocytosis Spherocytes Pappenheimer Bodies Sickle Cells Target Cells Tear Drop Cells Ovalocytes Helmet Cells Conner-Myton Bodies Cheney Rings [place] Cells Bite Cells Crenated Cell Elliptocytes Acanthocytes (Spur) Rouleaux Hemoglobin C Crystals Schistocytes Malaria parasites Frank[place] Bodies Hem Pathologist Commnt Sodium Potassium Chloride Carbon Dioxide Anion Gap BUN Creatinine Estimated GFR BUN/Creatinine Ratio Glucose Calcium Urine Color Urine Turbidity Urine pH Ur Specific [place] Urine Protein Urine Glucose (UA) Urine Ketones Urine Blood Urine Nitrite Urine Bilirubin Urine Urobilinogen Ur Leukocyte Esterase Urine WBC (Auto) Urine RBC (Auto) U Epithel Cells (Auto) Salicylates Urine Opiates Screen Presumptive negative Urine Methadone Screen Presumptive negative Acetaminophen Ur Barbiturates Screen Presumptive negative Ur Phencyclidine Scrn Presumptive negative Ur Amphetamines Screen Presumptive negative U Benzodiazepines Scrn Presumptive negative Urine Cocaine Screen Presumptive negative U Marijuana (THC) Screen Presumptive negative Drugs of Abuse Note Disclamer Plasma/Serum Alcohol - Radiology Data Radiology results: report reviewed (CT head) CT head (read by radiologist)-normal CT head - Differential Diagnosis migraine headache, ICH, intracranial mass, schizophrenia Critical care attestation.: If time is entered above; I have spent that time in minutes in the direct care of this critically ill patient, excluding procedure time. ED Disposition Clinical Impression: Headache, Homelessness Disposition: DC-01 TO HOME OR SELFCARE Is pt being admited?: No Does the pt Need Aspirin: No Condition: Stable Instructions: Migraine Headache (ED) Additional Instructions: Return to the emergency department immediately should you develop worsening symptoms, fever, inability to tolerate food or liquid or any other concerns. Prescriptions: Butalb/Acetamin/Caff 50-325-40 [Fioricet] 2 tab PO Q8HR PRN #14 tablet PRN Reason: Headache Referrals: PRIMARY CARE, [Primary Care Provider] - 3-5 Days DEMETRIS HERMAN MD [Staff Physician] - 3-5 Days (Dr Herman is a neurologist. Please follow up with him for further evaluation) Time of Disposition: 11:28 (dispo per Social work)
[2017-08-02 21:55] VITALS: BP 116/58
--- NOTE | 2017-08-04 11:30 | Cat Scan Report ---
CT HEAD WITHOUT CONTRAST: HISTORY: Headache. TECHNIQUE: Sequential 2.5mm CT images. COMPARISON: none. FINDINGS: Cerebral Parenchyma: Within normal limits. Cerebellum: Within normal limits. Brainstem: Within normal limits. Ventricles: Normal. Sella: Normal. Extra-axial spaces: Normal. Basal Cisterns: Normal. Intracranial Hemorrhage: None. Midline Shift: None. Calvarium: Normal. Sinuses: Normal. Mastoid Air Cells: Normal. Visualized Orbits: Normal. IMPRESSION: Cranial CT scan within normal limits.
== END 2017-08-02 23:10 | disposition home or self-care (01) ==
LOC: ED 01:20
DX: G43.909 Migraine, unspecified, not intractable, without status migrainosus (principal); F17.210 Nicotine dependence, cigarettes, uncomplicated; F20.9 Schizophrenia, unspecified; F31.9 Bipolar disorder, unspecified; Z86.2 Personal history of diseases of the blood and blood-forming organs and certain disorders involving the immune mechanism; Z79.899 Other long term (current) drug therapy
CPT/HCPCS: 36415; 70450; 80048; 80307; 81001; 85007; 85025; 96372; 99284; G0480; J2270; J2405; 80320

== ENCOUNTER 2017-08-06 | Emergency (ER) | payer SELFPAY ==
[2017-08-06 05:43] LABS: Bilirubin,Urine NEG (Negative); Blood,Urine NEG (Negative); Color,Urine Yellow (Yellow); Mucus,Urine FEW /HPF; Protein,Urine <15 mg/dL mg/dL (Negative); Urobilinogen,Urine < 2.0 mg/dL (<2.0); WBC,Urine < 1.0 /HPF (0.0-6.0)
[2017-08-06] MEDS ORDERED: MOTRIN PO ONE (07:25)
--- NOTE | 2017-08-06 07:30 | Emergency Department Report ---
ED Extremity Problem HPI - General Chief complaint: Back Pain/Injury Stated complaint: MED REFILL Time Seen by Provider: 08/06/17 07:18 Source: patient Mode of arrival: Ambulatory Limitations: No Limitations - History of Present Illness Initial comments: 27-year-old male past medical history mental health disorder,? Schizophrenia, history of migraines presents with complaint of chronic bilateral knee pain. Patient is awake and alert. When I first entered examination room patient was asleep. I woke him up to discuss why he came to the ED. Patient states that because he is homeless at this time he is constantly on his feet and walking outdoors. States that this causes him to get achy knees and an achy lower back. Denies generalized body aches, primarily complaining of pain near his knee joints. Denies any chest pain palpitations abdominal pain fevers chills. Denies any nausea or vomiting. Denies any hematuria, dysuria or increased urinary frequency. Primarily complaining of chronic lower back and knee discomfort which has been going on for several months. Denies any rash. Denies any recent trauma. Patient states that he was here in the ED a few days ago. Patient is requesting a bed to sleep in. States he generally feels better when he gets rest and lay down. MD Complaint: extremity pain -: month(s) Location: left, right, bilateral lower extremity -: Yes arthralgia Quality: aching Consistency: intermittent Improves with: immobilization - Related Data Previous Rx's Medication Instructions Recorded Last Taken Type Clindamycin [Clindamycin CAP] 300 mg PO Q8H #30 cap 01/06/17 Unknown Rx Ondansetron [Zofran Odt] 4 mg PO Q8HR PRN #14 tab.rapdis 01/06/17 Unknown Rx Prednisone [predniSONE 10 mg 10 mg PO .TAPER #1 tab.ds.pk 01/06/17 Unknown Rx (6-Day Pack, 21 Tabs)] traMADol [Ultram 50 MG tab] 50 mg PO Q4HR PRN #14 tablet 01/06/17 Unknown Rx Butalb/Acetamin/Caff 50-325-40 2 tab PO Q8HR PRN #14 tablet 08/02/17 Unknown Rx [Fioricet] Ibuprofen [Motrin] 800 mg PO Q8HR PRN #15 tablet 08/06/17 Unknown Rx Allergies Allergy/AdvReac Type Severity Reaction Status Date / Time No Known Allergies Allergy Verified 08/06/17 00:38 ED Review of Systems ROS: Stated complaint: MED REFILL Other details as noted in HPI Constitutional: denies: chills, fever Eyes: denies: eye pain, eye discharge, vision change ENT: denies: ear pain, throat pain Respiratory: denies: cough, shortness of breath, wheezing Cardiovascular: denies: chest pain, palpitations Endocrine: no symptoms reported Gastrointestinal: denies: abdominal pain, nausea, diarrhea Genitourinary: denies: urgency, dysuria Musculoskeletal: arthralgia. denies: back pain, joint swelling Skin: denies: rash, lesions Neurological: denies: headache, weakness, paresthesias Psychiatric: denies: anxiety, depression Hematological/Lymphatic: denies: easy bleeding, easy bruising ED Past Medical Hx - Past Medical History Hx Headaches / Migraines: Yes Hx Psychiatric Treatment: Yes (Per Pt - In [place] about 6 years ago, bipolar schizophrenia) Additional medical history: anemia, sinus problems - Social History Smoking Status: Current Every Day Smoker Substance Use Type: None - Medications Home Medications: Home Medications Medication Instructions Recorded Confirmed Last Taken Type Clindamycin [Clindamycin CAP] 300 mg PO Q8H #30 cap 01/06/17 Unknown Rx Ondansetron [Zofran Odt] 4 mg PO Q8HR PRN #14 tab.rapdis 01/06/17 Unknown Rx Prednisone [predniSONE 10 mg 10 mg PO .TAPER #1 tab.ds.pk 01/06/17 Unknown Rx (6-Day Pack, 21 Tabs)] traMADol [Ultram 50 MG tab] 50 mg PO Q4HR PRN #14 tablet 01/06/17 Unknown Rx Butalb/Acetamin/Caff 50-325-40 2 tab PO Q8HR PRN #14 tablet 08/02/17 Unknown Rx [Fioricet] Ibuprofen [Motrin] 800 mg PO Q8HR PRN #15 tablet 08/06/17 Unknown Rx ED Physical Exam - General Limitations: No Limitations General appearance: alert, in no apparent distress - Head Head exam: Present: atraumatic, normocephalic - Eye Eye exam: Present: normal appearance - ENT ENT exam: Present: mucous membranes moist - Neck Neck exam: Present: normal inspection - Respiratory Respiratory exam: Present: normal lung sounds bilaterally. Absent: respiratory distress - Cardiovascular Cardiovascular Exam: Present: regular rate, normal rhythm. Absent: systolic murmur, diastolic murmur, rubs, gallop - GI/Abdominal GI/Abdominal exam: Present: soft, normal bowel sounds - Rectal Rectal exam: Present: deferred - Extremities Exam Extremities exam: Present: normal inspection - Back Exam Back exam: Present: normal inspection - Neurological Exam Neurological exam: Present: alert, oriented X3, normal gait - Psychiatric Psychiatric exam: Present: normal affect, normal mood - Skin Skin exam: Present: warm, dry, intact, normal color. Absent: rash ED Course Vital Signs 08/06/17 00:34 Temperature 98.3 F Pulse Rate 91 H Blood Pressure 110/72 O2 Sat by Pulse 95 Oximetry ED Medical Decision Making - Medical Decision Making A/P: Arthralgia, chronic knee pain, chronic lower back ache 1-patient likely has musculoskeletal pain secondary to his current undomiciled status and constantly being on his feet. Patient had UA done ordered from triage which was unremarkable. 2-Motrin when necessary for pain 3-patient presented to the ED on 08/[address] unremarkable. Patient has no gross overt neurological deficits upon examination at this time. According to triage note patient wanted refill on psych medication. I brought this up to the patient during my interview and he did not want to discuss this with me. I asked the patient if he has any suicidal or homicidal ideation and patient denied at this time. 4- I discussed the patient's current home status with mental health counselor Mr. Torres who will provide patient with outpatient resources and list of shelters. Critical care attestation.: If time is entered above; I have spent that time in minutes in the direct care of this critically ill patient, excluding procedure time. ED Disposition Clinical Impression: Homelessness, Musculoskeletal pain Disposition: DC-01 TO HOME OR SELFCARE Is pt being admited?: No Does the pt Need Aspirin: No Condition: Stable Instructions: Musculoskeletal Pain (ED) Prescriptions: Ibuprofen [Motrin] 800 mg PO Q8HR PRN #15 tablet PRN Reason: Pain Referrals: [facility] [Provider Group] - 3-5 Days Time of Disposition: 07:35
[2017-08-06 08:02] VITALS: BP 96/54
== END 2017-08-06 08:01 | disposition home or self-care (01) ==
LOC: ED
DX: M79.1 Myalgia (principal); Z59.0 Homelessness; F17.200 Nicotine dependence, unspecified, uncomplicated; F31.9 Bipolar disorder, unspecified; Z86.2 Personal history of diseases of the blood and blood-forming organs and certain disorders involving the immune mechanism
CPT/HCPCS: 81001; 99283

== ENCOUNTER 2017-08-11 04:41 | Emergency (ER) | payer SELFPAY | END 2017-08-11 04:42 | disposition left against medical advice (07) | LOC: ED 04:41 | DX: G43.909 Migraine, unspecified, not intractable, without status migrainosus (principal); M54.9 Dorsalgia, unspecified; M25.559 Pain in unspecified hip; M79.604 Pain in right leg; Z53.21 Procedure and treatment not carried out due to patient leaving prior to being seen by health care provider ==

== ENCOUNTER 2017-08-12 02:27 | Emergency (ER) | payer SELFPAY ==
[2017-08-12 05:16] LABS: Hematocrit 39.3 % (35.5-45.6); Mean Corpuscular HGB Conc 33 % (32-34); Mean Corpuscular Hemoglobin 27 pg (28-32); Mean Corpuscular Volume 81 fl (84-94); Platelet Count 256 K/mm3 (140-440); Red Blood Count 4.85 M/mm3 (3.65-5.03); Red Cell Distribution Width 16.2 % (13.2-15.2)
[2017-08-12 05:31] LABS: BUN/Creatinine Ratio 20; Blood Urea Nitrogen 14 mg/dL (9-20); Hemolysis Index 16
[2017-08-12 06:01] LABS: Band Neutrophils # (Manual) 0.1 K/mm3; Basophils % (Manual) 0 % (0.0-1.8); Myelocytes # (Manual) 0.1 K/mm3; Total Cells Counted 100
[2017-08-12 06:02] LABS: Platelet Estimate Consistent w Auto
[2017-08-12 08:13] LABS: Bilirubin,Urine NEG (Negative); Blood,Urine NEG (Negative); Color,Urine Yellow (Yellow); Mucus,Urine FEW /HPF; Protein,Urine <15 mg/dL mg/dL (Negative); Urobilinogen,Urine < 2.0 mg/dL (<2.0)
[2017-08-12 08:20] LABS: Amphetamine Screen,Urine PRESUMPTIVE NEGATIVE; Benzodiazepines Screen,Urine PRESUMPTIVE NEGATIVE; Methadone Screen,Urine PRESUMPTIVE NEGATIVE; Opiate Screen,Urine PRESUMPTIVE NEGATIVE
[2017-08-12 08:50] LABS: Cannabinoid Screen,Urine PRESUMPTIVE POSITIVE; Cocaine Screen,Urine PRESUMPTIVE POSITIVE
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
[2017-08-15] MEDS ORDERED: TYLENOL ONE (09:49)
[2017-08-15] MEDS ORDERED: TYLENOL PO ONE (10:13)
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
[2017-08-17 05:09] VITALS: BP 116/76
== END 2017-08-17 07:14 ==
LOC: ED 02:27 → EEVIPCON 02:27 → ED 08-17 07:14
DX: S70.01XA Contusion of right hip, initial encounter (principal); V03.10XA Pedestrian on foot injured in collision with car, pick-up truck or van in traffic accident, initial encounter; G43.909 Migraine, unspecified, not intractable, without status migrainosus; F31.9 Bipolar disorder, unspecified; F20.9 Schizophrenia, unspecified; F17.200 Nicotine dependence, unspecified, uncomplicated; F12.10 Cannabis abuse, uncomplicated; Y93.89 Activity, other specified; Y92.89 Other specified places as the place of occurrence of the external cause; Y99.8 Other external cause status
CPT/HCPCS: 36415; 73502; 80048; 80307; 81001; 85007; 85025; 99285; G0480; 80320

== ENCOUNTER 2019-06-12 02:36 | Emergency (ER) | payer SELFPAY ==
[2019-06-12 02:43] VITALS: BP 111/70
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
== END 2019-06-12 08:29 | disposition home or self-care (01) ==
LOC: ED 02:36
DX: J40 Bronchitis, not specified as acute or chronic (principal); G43.909 Migraine, unspecified, not intractable, without status migrainosus; F17.200 Nicotine dependence, unspecified, uncomplicated; F12.10 Cannabis abuse, uncomplicated; F14.10 Cocaine abuse, uncomplicated; Z79.899 Other long term (current) drug therapy
CPT/HCPCS: 99281

== ENCOUNTER 2019-07-27 19:51 | Emergency (ER) | payer SELFPAY ==
[2019-07-27] MEDS ORDERED: IBUPROFEN 800 MG TAB PO ONE (22:53)
[2019-07-28 00:06] LABS: Basophils % (Auto) 0.4 % (0.0-1.8); Eosinophils # (Auto) 0.1 K/mm3 (0.0-0.4); Eosinophils % (Auto) 0.8 % (0.0-4.3); Hemoglobin 13.7 gm/dl (11.8-15.2); Lymphocytes # (Auto) 2.8 K/mm3 (1.2-5.4); Lymphocytes % (Auto) 39.6 % (13.4-35.0); Mean Corpuscular HGB Conc 32 % (32-34); Mean Corpuscular Volume 81 fl (84-94); Monocytes # (Auto) 0.6 K/mm3 (0.0-0.8); Platelet Count 238 K/mm3 (140-440); Red Blood Count 5.31 M/mm3 (3.65-5.03); Red Cell Distribution Width 14.7 % (13.2-15.2)
--- NOTE | 2019-07-28 00:09 | Emergency Department Report ---
ED General Adult HPI - General Chief complaint: Weakness Stated complaint: GENERAL BODY PAIN Time Seen by Provider: 07/27/19 22:50 Source: patient Mode of arrival: Ambulatory Limitations: No Limitations - History of Present Illness Initial comments: Mr. Dejesus is a 29-year-old -[place] male with a history of schizophrenia and bipolar disorder patient presents for vague complaint of body ache. He denies fevers or chills. He denies cough. There is no shortness of breath. There is no chest pain. There is no back pain. He denies dysuria, hematuria or urinary frequency. There is been no fevers or chills. He denies SI or HI. However he wants referral to psych. He denies exacerbating or relieving factors. Onset/Timin -: days(s) Location: back, upper extremity, lower extremity Radiation: non-radiation Severity scale (0 -10): 3 Quality: aching Consistency: constant Improves with: none Worsens with: movement Associated Symptoms: denies: chest pain, cough, diaphoresis, fever/chills, headaches, nausea/vomiting, shortness of breath Treatments Prior to Arrival: none - Related Data Previous Rx's Medication Instructions Recorded Last Taken Type Azithromycin [Zithromax Tri-Paxton] 500 mg PO DAILY #3 tablet 06/12/19 Unknown Rx Ibuprofen [Motrin 800 MG tab] 800 mg PO Q8HR PRN #30 tablet 07/28/19 Unknown Rx Allergies Allergy/AdvReac Type Severity Reaction Status Date / Time No Known Allergies Allergy Verified 08/06/17 00:38 ED Review of Systems ROS: Stated complaint: GENERAL BODY PAIN Other details as noted in HPI Constitutional: denies: chills, fever Eyes: denies: eye pain, eye discharge, vision change ENT: denies: ear pain, throat pain Respiratory: denies: cough, shortness of breath, wheezing Cardiovascular: denies: chest pain, palpitations Endocrine: no symptoms reported Gastrointestinal: denies: abdominal pain, nausea, vomiting, diarrhea Genitourinary: denies: urgency, dysuria Musculoskeletal: myalgia Skin: denies: rash, lesions Neurological: as per HPI, headache. denies: weakness, numbness, paresthesias, confusion, vertigo Psychiatric: denies: anxiety, depression Hematological/Lymphatic: denies: easy bleeding, easy bruising ED Past Medical Hx - Past Medical History Hx Headaches / Migraines: Yes Hx Psychiatric Treatment: Yes (Per Pt - In [place] about 6 years ago, bipolar schizophrenia) Additional medical history: anemia, sinus problems - Surgical History Past Surgical History?: No - Social History Smoking Status: Current Every Day Smoker Substance Use Type: Alcohol, Marijuana - Medications Home Medications: Home Medications Medication Instructions Recorded Confirmed Last Taken Type Azithromycin [Zithromax Tri-Paxton] 500 mg PO DAILY #3 tablet 06/12/19 Unknown Rx Ibuprofen [Motrin 800 MG tab] 800 mg PO Q8HR PRN #30 tablet 07/28/19 Unknown Rx ED Physical Exam - General Limitations: No Limitations General appearance: alert, in no apparent distress - Head Head exam: Present: atraumatic, normocephalic - Eye Eye exam: Present: normal appearance, PERRL, EOMI Pupils: Present: normal accommodation - ENT ENT exam: Present: mucous membranes moist - Neck Neck exam: Present: normal inspection - Respiratory Respiratory exam: Present: normal lung sounds bilaterally. Absent: respiratory distress, wheezes, stridor, chest wall tenderness - Cardiovascular Cardiovascular Exam: Present: regular rate, normal rhythm, normal heart sounds. Absent: systolic murmur, diastolic murmur, rubs, gallop - GI/Abdominal GI/Abdominal exam: Present: soft, normal bowel sounds. Absent: distended, tenderness, guarding, rebound, rigid, bruit, hernia - Rectal Rectal exam: Present: deferred - Extremities Exam Extremities exam: Present: normal inspection, full ROM, normal capillary refill. Absent: tenderness - Back Exam Back exam: Present: normal inspection, full ROM. Absent: tenderness, CVA tender ness (R), CVA tenderness (L), vertebral tenderness, rash noted - Neurological Exam Neurological exam: Present: alert, oriented X3, CN II-XII intact, normal gait, reflexes normal. Absent: motor sensory deficit - Psychiatric Psychiatric exam: Present: normal affect, normal mood - Skin Skin exam: Present: warm ED Course Vital Signs 07/27/19 20:15 Temperature 98.0 F Pulse Rate 60 Blood Pressure 127/80 O2 Sat by Pulse 100 Oximetry ED Medical Decision Making - Lab Data Result diagrams: 07/27/19 23:26 07/27/19 23:26 Labs 07/27/19 07/27/19 07/28/19 23:26 23:26 00:14 WBC 7.1 RBC 5.31 H Hgb 13.7 Hct 43.0 MCV 81 L MCH 26 L MCHC 32 RDW 14.7 Plt Count 238 Lymph % (Auto) 39.6 H [place] % (Auto) 8.0 H Eos % (Auto) 0.8 Baso % (Auto) 0.4 Lymph # 2.8 [place]ham # 0.6 Eos # 0.1 Baso # 0.0 Seg Neutrophils % 51.2 Seg Neutrophils # 3.6 Sodium 139 Potassium 3.9 Chloride 100.1 Carbon Dioxide 24 Anion Gap 19 BUN 10 Creatinine 0.8 Estimated GFR > 60 BUN/Creatinine Ratio 13 Glucose 82 Calcium 9.2 Total Bilirubin 0.40 AST 17 ALT 13 Alkaline Phosphatase 42 Total Protein 7.7 Albumin 4.6 Albumin/Globulin Ratio 1.5 Lipase 11 L Urine Color Yellow Urine Turbidity Clear Urine pH 6.0 Ur Specific Mikana 1.020 Urine Protein <15 mg/dl Urine Glucose (UA) Neg Urine Ketones Tr Urine Blood Neg Urine Nitrite Neg Urine Bilirubin Neg Urine Urobilinogen 2.0 Ur Leukocyte Esterase Neg Urine WBC (Auto) 1.0 Urine RBC (Auto) 2.0 U Epithel Cells (Auto) < 1.0 Urine Mucus 3+ - Medical Decision Making Labs normal. Patient is not SI or HI. Patient will follow-up with outpatient psych at [facility] department, patient verbalizes agreement and understanding with same DC to home in stable condition at this time Critical care attestation.: If time is entered above; I have spent that time in minutes in the direct care of this critically ill patient, excluding procedure time. ED Disposition Clinical Impression: Body aches Disposition: DC-01 TO HOME OR SELFCARE Is pt being admited?: No Does the pt Need Aspirin: No Condition: Stable Instructions: Musculoskeletal Pain (ED) Prescriptions: Ibuprofen [Motrin 800 MG tab] 800 mg PO Q8HR PRN #30 tablet PRN Reason: pain Referrals: [facility] [Outside] - 3-5 Days Forms: Work/School Release Form(ED) Time of Disposition: 00:51
[2019-07-28 00:22] LABS: Alanine Aminotransferase 13 units/L (7-56); Albumin 4.6 g/dL (3.9-5); BUN/Creatinine Ratio 13; Blood Urea Nitrogen 10 mg/dL (9-20); Calcium 9.2 mg/dL (8.4-10.2); Hemolysis Index 35
[2019-07-28 00:35] LABS: Bilirubin,Urine NEG (Negative); Blood,Urine NEG (Negative); Color,Urine Yellow (Yellow); Mucus,Urine 3+ /HPF; Protein,Urine <15 mg/dL mg/dL (Negative)
[2019-07-28 00:58] VITALS: BP 123/72
== END 2019-07-28 00:58 | disposition home or self-care (01) ==
LOC: ED 19:51
DX: M79.18 Myalgia, other site (principal)
CPT/HCPCS: 36415; 80053; 81001; 83690; 85025

== ENCOUNTER 2019-09-06 03:33 | Emergency (ER) | payer SELFPAY ==
[2019-09-06] MEDS ORDERED: LORazepam 2 MG/ML VIAL ONE (03:46)
[2019-09-06] MEDS ORDERED: diphenhydrAMINE 50 MG/ML VIAL ONE (03:46)
[2019-09-06] MEDS ORDERED: HALOPERIDOL LACTATE 5 MG/1 ML INJ ONE (03:46)
[2019-09-06] MEDS ORDERED: diphenhydrAMINE 50 MG/ML VIAL IM STA (03:52)
[2019-09-06] MEDS ORDERED: HALOPERIDOL LACTATE 5 MG/1 ML INJ IM PRN (03:52)
[2019-09-06] MEDS ORDERED: LORazepam 2 MG/ML VIAL IM PRN (03:52)
--- NOTE | 2019-09-06 03:53 | Event Note ---
Date: 09/06/19 Medical screening note: 29-year-old gentleman, presenting with acute agitation likely secondary to crack cocaine use, yelling "shit, fuck!" In the emergency room, walking around, making numerous muscular poses. Patient placed on hold secondary to acute intoxication. He is agitated. He will be medicated with haloperidol, Ativan and Benadryl. Recently had laboratory studies drawn, CBC was unremarkable.
[2019-09-06 05:34] LABS: BUN/Creatinine Ratio 8; Blood Urea Nitrogen 12 mg/dL (9-20); Calcium 9.7 mg/dL (8.4-10.2); Hemolysis Index 1
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
[2019-09-06 09:08] LABS: Basophils % (Auto) 0.3 % (0.0-1.8); Eosinophils % (Auto) 0.1 % (0.0-4.3); Hematocrit 41.2 % (35.5-45.6); Hemoglobin 13.5 gm/dl (11.8-15.2); Lymphocytes # (Auto) 1.8 K/mm3 (1.2-5.4); Lymphocytes % (Auto) 14.6 % (13.4-35.0); Mean Corpuscular HGB Conc 33 % (32-34); Mean Corpuscular Volume 82 fl (84-94); Monocytes # (Auto) 0.9 K/mm3 (0.0-0.8); Platelet Count 237 K/mm3 (140-440); Red Cell Distribution Width 14.6 % (13.2-15.2)
[2019-09-06 15:36] VITALS: BP 99/57
== END 2019-09-06 15:15 | disposition home or self-care (01) ==
LOC: EEVIPCON 03:33 → ED 03:33
DX: F19.959 Other psychoactive substance use, unspecified with psychoactive substance-induced psychotic disorder, unspecified (principal); G43.909 Migraine, unspecified, not intractable, without status migrainosus; D64.9 Anemia, unspecified; F14.90 Cocaine use, unspecified, uncomplicated; Z79.899 Other long term (current) drug therapy
CPT/HCPCS: 36415; 80048; 82550; 83735; 85025; 96372; 99284; J1200; J1630; J2060; 80320; G0480

== ENCOUNTER 2019-09-24 02:15 | Emergency (ER) | payer SELFPAY ==
[2019-09-24 03:56] LABS: Basophils % (Auto) 0.4 % (0.0-1.8); Eosinophils % (Auto) 0.1 % (0.0-4.3); Hematocrit 39.1 % (35.5-45.6); Hemoglobin 12.7 gm/dl (11.8-15.2); Lymphocytes # (Auto) 1.4 K/mm3 (1.2-5.4); Lymphocytes % (Auto) 14.5 % (13.4-35.0); Mean Corpuscular HGB Conc 32 % (32-34); Mean Corpuscular Volume 82 fl (84-94); Monocytes # (Auto) 0.4 K/mm3 (0.0-0.8); Monocytes % (Auto) 4.2 % (0.0-7.3); Platelet Count 215 K/mm3 (140-440); Red Blood Count 4.79 M/mm3 (3.65-5.03); Red Cell Distribution Width 14.8 % (13.2-15.2)
--- NOTE | 2019-09-24 04:14 | Emergency Department Report ---
ED Psych HPI - General Chief Complaint: Psych Stated Complaint: MEDICAL CLEARANCE Time Seen by Provider: 09/24/19 04:11 Source: patient Mode of arrival: Ambulatory - History of Present Illness Initial Comments: Patient is a 29-year-old male that presents emergency room for medical clearance to go to [place]. Patient states he needs mental health and substance abuse rehab. Patient patient states his been having suicidal homicidal ideations. Patient has plans to overdose on drugs. Patient states his been using alcohol and crack cocaine frequently. Patient states he wants to kill a lot of people. Patient states he is having hallucinations. Patient has a psych history. MD Complaint: suicidal ideation, feels depressed Associated Psychiatric Symptoms: depression, suicidal ideation, homicidal ideation, racing thoughts, auditory hallucinations History of same: Yes Quality: constant Improves With: therapy Worsens With: achohol, drug use Context: not taking psychiatric If Self Harm: admits thoughts of, has plan - Related Data Previous Rx's Medication Instructions Recorded Last Taken Type Azithromycin [Zithromax Tri-Paxton] 500 mg PO DAILY #3 tablet 06/12/19 Unknown Rx Ibuprofen [Motrin 800 MG tab] 800 mg PO Q8HR PRN #30 tablet 07/28/19 Unknown Rx Allergies Allergy/AdvReac Type Severity Reaction Status Date / Time No Known Allergies Allergy Verified 08/06/17 00:38 ED Review of Systems ROS: Stated complaint: MEDICAL CLEARANCE Other details as noted in HPI Constitutional: denies: chills, fever Eyes: denies: eye pain, eye discharge, vision change ENT: denies: ear pain, throat pain Respiratory: denies: cough, shortness of breath, wheezing Cardiovascular: denies: chest pain, palpitations Endocrine: no symptoms reported Gastrointestinal: denies: abdominal pain, nausea, diarrhea Genitourinary: denies: urgency, dysuria Musculoskeletal: denies: back pain, joint swelling, arthralgia Skin: denies: rash, lesions Neurological: denies: headache, weakness, paresthesias Psychiatric: depression, visual hallucinations, homicidal thoughts, suicidal thoughts. denies: anxiety Hematological/Lymphatic: denies: easy bleeding, easy bruising ED Past Medical Hx - Past Medical History Previous Medical History?: Yes Hx Headaches / Migraines: Yes Hx Psychiatric Treatment: Yes (Per Pt - In [place] about 6 years ago, bipolar schizophrenia) Additional medical history: anemia, sinus problems - Surgical History Past Surgical History?: No - Family History Family history: no significant - Social History Smoking Status: Current Every Day Smoker Substance Use Type: Alcohol, Cocaine, Marijuana - Medications Home Medications: Home Medications Medication Instructions Recorded Confirmed Last Taken Type Azithromycin [Zithromax Tri-Paxton] 500 mg PO DAILY #3 tablet 06/12/19 Unknown Rx Ibuprofen [Motrin 800 MG tab] 800 mg PO Q8HR PRN #30 tablet 07/28/19 Unknown Rx ED Physical Exam - General Limitations: Other General appearance: alert, in no apparent distress - Head Head exam: Present: atraumatic, normocephalic - Eye Eye exam: Present: normal appearance - ENT ENT exam: Present: mucous membranes moist - Neck Neck exam: Present: normal inspection - Respiratory Respiratory exam: Present: normal lung sounds bilaterally. Absent: respiratory distress - Cardiovascular Cardiovascular Exam: Present: regular rate, normal rhythm. Absent: systolic murmur, diastolic murmur, rubs, gallop - GI/Abdominal GI/Abdominal exam: Present: soft, normal bowel sounds - Rectal Rectal exam: Present: deferred - Extremities Exam Extremities exam: Present: normal inspection - Back Exam Back exam: Present: normal inspection - Neurological Exam Neurological exam: Present: alert, oriented X3 - Psychiatric Psychiatric exam: Present: flat affect, homicidal ideation, suicidal ideation - Skin Skin exam: Present: warm, dry, intact, normal color. Absent: rash ED Course Vital Signs 09/24/19 09/24/19 09/24/19 02:21 03:33 04:30 Temperature 98.6 F 98.3 F Pulse Rate 93 H 77 Respiratory 18 16 16 Rate Blood Pressure 117/71 106/67 [Right] O2 Sat by Pulse 100 98 98 Oximetry - Reevaluation(s) Reevaluation #1: Initial evaluation done. Patient placed on a ER hold. Patient will have labs done. 09/24/19 04:14 Reevaluation #2: I discussed all results and clinical findings with patient. I discussed plan of care with patient. Patient agrees with plan of care. Patient is medically clear. Patient will remain in the ER as an ER hold. Patient is final disp osition will come from our mental health and psychiatry team. 09/24/19 05:51 ED Medical Decision Making - Lab Data Result diagrams: 09/24/19 03:33 09/24/19 03:33 - Medical Decision Making Patient is a 29-year-old male that presents emergency room for medical clearance to go to [place]. Patient physically came to the emergency room for medical clearance however the patient complained of suicidal homicidal ideations. Patient had labs done. Patient will need to be evaluated by our mental health team and sent to a facility at this indicated. Patient was able to be medically cleared performed patient remained in the ER as an ER hold until cleared by our mental health team. Patient's final disposition will come from our mental health and psychiatry team. - Differential Diagnosis Suicidal ideation, homicidal ideation, drug abuse, mental health Critical care attestation.: If time is entered above; I have spent that time in minutes in the direct care of this critically ill patient, excluding procedure time. ED Disposition Clinical Impression: Depressed, Suicidal ideation, Homicidal ideations, Cocaine abuse Disposition: DC/TX-65 PSY HOSP/PSY UNIT Is pt being admited?: No Does the pt Need Aspirin: No Condition: Stable Referrals: PRIMARY CARE, [Primary Care Provider] - 2-3 Days Time of Disposition: 05:53
[2019-09-24 04:17] LABS: BUN/Creatinine Ratio 17; Blood Urea Nitrogen 17 mg/dL (9-20); Calcium 9.1 mg/dL (8.4-10.2); Hemolysis Index 12
[2019-09-24 05:28] LABS: Bilirubin,Urine NEG (Negative); Blood,Urine NEG (Negative); Color,Urine Yellow (Yellow); Mucus,Urine FEW /HPF; Protein,Urine <15 mg/dL mg/dL (Negative); Urobilinogen,Urine < 2.0 mg/dL (<2.0)
[2019-09-24 05:40] LABS: Amphetamine Screen,Urine Negative; Benzodiazepines Screen,Urine Negative; Methadone Screen,Urine Negative; Opiate Screen,Urine Negative
[2019-09-24 06:01] LABS: Cannabinoid Screen,Urine Positive; Cocaine Screen,Urine Positive
[2019-09-24] MEDS ORDERED: LORazepam 2 MG/ML VIAL IM ONE (08:29)
[2019-09-24] MEDS ORDERED: ZIPRASIDONE MESYLATE 20 MG VIAL IM ONE (08:29)
[2019-09-24] MEDS: QUEtiapine 100 MG TAB PO SCH ×2 (10:15→22:00)
[2019-09-25 02:08] VITALS: BP 101/54
== END 2019-09-25 04:10 ==
LOC: EEVIPCON 02:15 → ED 02:15
DX: R45.851 Suicidal ideations (principal); R45.850 Homicidal ideations; R44.0 Auditory hallucinations; F32.89 Other specified depressive episodes; F14.10 Cocaine abuse, uncomplicated; G43.909 Migraine, unspecified, not intractable, without status migrainosus; F17.200 Nicotine dependence, unspecified, uncomplicated; F12.10 Cannabis abuse, uncomplicated; F20.89 Other schizophrenia; F31.9 Bipolar disorder, unspecified; Z86.2 Personal history of diseases of the blood and blood-forming organs and certain disorders involving the immune mechanism
CPT/HCPCS: 36415; 80048; 80307; 80320; 81001; 85025; G0480

== ENCOUNTER 2019-12-25 11:42 | Emergency (ER) | payer SELFPAY ==
[2019-12-25 11:54] VITALS: BP 121/85
== END 2019-12-25 14:40 | disposition left against medical advice (07) ==
LOC: ED 11:42
DX: R52 Pain, unspecified (principal); Z53.21 Procedure and treatment not carried out due to patient leaving prior to being seen by health care provider

== ENCOUNTER 2020-02-08 03:03 | Emergency (ER) | payer SELFPAY ==
[2020-02-08 04:21] LABS: Bilirubin,Urine NEG (Negative); Blood,Urine SM (Negative); Color,Urine Straw (Yellow); Mucus,Urine FEW /HPF; Urobilinogen,Urine < 2.0 mg/dL (<2.0)
[2020-02-08 04:25] LABS: Amphetamine Screen,Urine PRESUMPTIVE NEGATIVE; Benzodiazepines Screen,Urine PRESUMPTIVE NEGATIVE; Cannabinoid Screen,Urine PRESUMPTIVE POSITIVE; Cocaine Screen,Urine PRESUMPTIVE POSITIVE; Methadone Screen,Urine PRESUMPTIVE NEGATIVE; Opiate Screen,Urine PRESUMPTIVE NEGATIVE
[2020-02-08 05:02] LABS: Basophils % (Auto) 0.4 % (0.0-1.8); Eosinophils % (Auto) 0.3 % (0.0-4.3); Hemoglobin 13.4 gm/dl (11.8-15.2); Lymphocytes # (Auto) 1.5 K/mm3 (1.2-5.4); Lymphocytes % (Auto) 25.4 % (13.4-35.0); Mean Corpuscular HGB Conc 33 % (32-34); Mean Corpuscular Volume 82 fl (84-94); Monocytes # (Auto) 0.5 K/mm3 (0.0-0.8); Platelet Count 224 K/mm3 (140-440); Red Blood Count 5.01 M/mm3 (3.65-5.03); Red Cell Distribution Width 14.1 % (13.2-15.2)
[2020-02-08 05:19] LABS: BUN/Creatinine Ratio 9; Blood Urea Nitrogen 7 mg/dL (9-20); Calcium 9.3 mg/dL (8.4-10.2); Hemolysis Index 25
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
--- NOTE | 2020-02-08 09:08 | XRay Report ---
RIGHT FOOT 3 VIEWS INDICATION / CLINICAL INFORMATION: pain. COMPARISON: None available. FINDINGS: Healing fracture of the second metatarsal head. No other significant skeletal abnormality. Signer Name: Holden Rodriguez MD FACMike Signed: 02/08/2020 9:03 AM Workstation Name: [id number]
[2020-02-08 09:26] LABS: Amphetamine Screen,Urine Negative; Benzodiazepines Screen,Urine Negative; Methadone Screen,Urine Negative; Opiate Screen,Urine Negative
[2020-02-08 09:46] LABS: Cannabinoid Screen,Urine Positive; Cocaine Screen,Urine Positive
[2020-02-08] MEDS ORDERED: ACETAMINOPHEN 325 MG TAB PO ONE (12:15)
[2020-02-08] MEDS ORDERED: ACETAMINOPHEN 325 MG TAB ONE (15:08)
[2020-02-08] MEDS ORDERED: IBUPROFEN 600 MG TAB PO ONE (20:38)
[2020-02-09 09:07] VITALS: BP 112/63
== END 2020-02-09 14:31 ==
LOC: ED 03:03 → EEVIPCON 03:03 → ED 02-09 14:31
DX: S92.323A Displaced fracture of second metatarsal bone, unspecified foot, initial encounter for closed fracture (principal); R45.850 Homicidal ideations; F14.10 Cocaine abuse, uncomplicated; F17.200 Nicotine dependence, unspecified, uncomplicated; Z79.899 Other long term (current) drug therapy; X58.XXXA Exposure to other specified factors, initial encounter; Y93.89 Activity, other specified; Y92.89 Other specified places as the place of occurrence of the external cause; Y99.8 Other external cause status
CPT/HCPCS: 36415; 80048; 80307; 80320; 81001; 85025; G0480

== ENCOUNTER 2020-02-19 11:05 | Emergency (ER) | payer SELFPAY ==
--- NOTE | 2020-02-19 11:44 | Event Note ---
ED Screening Note Date of service: 02/19/20 Time: 11:42 ED Screening Note: 30-year-old -Martiniquais male with a history of schizophrenia and bipolar presents to the emergency room reporting he is having suicidal and homicidal ideation. Patient states that he had just left [facility] because he felt he was not getting help that he needed. He states that [facility] was going to discharge him home. This initial assessment/diagnostic orders/clinical plan/treatment(s) is/are subject to change based on patients health status, clinical progression and re- assessment by fellow clinical providers in the ED. Further treatment and workup at subsequent clinical providers discretion. Patient/guardian urged not to elope from the ED as their condition may be serious if not clinically assessed and managed. Initial orders include:
[2020-02-19 12:15] LABS: Basophils % (Auto) 0.7 % (0.0-1.8); Eosinophils % (Auto) 0.8 % (0.0-4.3); Hematocrit 40.8 % (35.5-45.6); Hemoglobin 13.1 gm/dl (11.8-15.2); Lymphocytes # (Auto) 1.8 K/mm3 (1.2-5.4); Lymphocytes % (Auto) 28.8 % (13.4-35.0); Mean Corpuscular HGB Conc 32 % (32-34); Mean Corpuscular Volume 83 fl (84-94); Monocytes # (Auto) 0.6 K/mm3 (0.0-0.8); Monocytes % (Auto) 9.5 % (0.0-7.3); Platelet Count 216 K/mm3 (140-440); Red Blood Count 4.94 M/mm3 (3.65-5.03); Red Cell Distribution Width 14.6 % (13.2-15.2)
[2020-02-19 12:31] LABS: BUN/Creatinine Ratio 12; Blood Urea Nitrogen 11 mg/dL (9-20); Calcium 9.4 mg/dL (8.4-10.2); Hemolysis Index 146
[2020-02-19 13:30] LABS: Bilirubin,Urine NEG (Negative); Blood,Urine NEG (Negative); Color,Urine Straw (Yellow); Protein,Urine <15 mg/dL mg/dL (Negative); RBC,Urine < 1.0 /HPF (0.0-6.0); Urobilinogen,Urine < 2.0 mg/dL (<2.0)
[2020-02-19 13:31] VITALS: BP 125/80
[2020-02-19 13:38] LABS: Amphetamine Screen,Urine Negative; Benzodiazepines Screen,Urine Negative; Cocaine Screen,Urine Negative; Methadone Screen,Urine Negative; Opiate Screen,Urine Negative
[2020-02-19 13:50] LABS: Cannabinoid Screen,Urine Positive
--- NOTE | 2020-02-19 14:11 | Emergency Department Report ---
ED Psych HPI - General Chief Complaint: Psych Stated Complaint: MENTAL HEALTH Time Seen by Provider: 02/19/20 13:22 Source: patient Mode of arrival: Ambulatory - History of Present Illness Initial Comments: Patient is 30 years old male with history of schizophrenia. Patient presented to the ER complaining of suicidal and homicidal ideation. [facility]. Patient stated that he did not get the help he want. Patient does not have plan. He admitted that he is hearing voices sometimes. No visual hallucination. MD Complaint: suicidal ideation Associated Psychiatric Symptoms: suicidal ideation, homicidal ideation, auditory hallucinations History of same: Yes Associated Symptoms: denies other symptoms Treatments Prior to Arrival: none If Self Harm: admits thoughts of - Related Data Previous Rx's Medication Instructions Recorded Last Taken Type Azithromycin [Zithromax Tri-Paxton] 500 mg PO DAILY #3 tablet 06/12/19 Unknown Rx Ibuprofen [Motrin 800 MG tab] 800 mg PO Q8HR PRN #30 tablet 07/28/19 Unknown Rx Allergies Allergy/AdvReac Type Severity Reaction Status Date / Time No Known Allergies Allergy Verified 12/25/19 11:50 ED Review of Systems ROS: Stated complaint: MENTAL HEALTH Other details as noted in HPI Comment: All other systems reviewed and negative Constitutional: denies: chills, fever Respiratory: denies: cough, shortness of breath, SOB with exertion Cardiovascular: denies: chest pain, palpitations Gastrointestinal: denies: abdominal pain, nausea, vomiting Musculoskeletal: denies: back pain Neurological: denies: headache, weakness ED Past Medical Hx - Past Medical History Previous Medical History?: Yes Hx Headaches / Migraines: Yes Hx Psychiatric Treatment: Yes (Per Pt - In [place] about 6 years ago, bipolar schizophrenia) Additional medical history: anemia, sinus problems - Surgical History Past Surgical History?: No - Social History Smoking Status: Current Every Day Smoker Substance Use Type: Alcohol, Cocaine, Marijuana - Medications Home Medications: Home Medications Medication Instructions Recorded Confirmed Last Taken Type Azithromycin [Zithromax Tri-Paxton] 500 mg PO DAILY #3 tablet 06/12/19 Unknown Rx Ibuprofen [Motrin 800 MG tab] 800 mg PO Q8HR PRN #30 tablet 07/28/19 Unknown Rx ED Physical Exam - General Limitations: No Limitations General appearance: alert, in no apparent distress - Head Head exam: Present: atraumatic, normocephalic, normal inspection - Eye Eye exam: Present: normal appearance - ENT ENT exam: Present: normal exam, normal orophraynx, mucous membranes moist - Neck Neck exam: Present: normal inspection, full ROM. Absent: tenderness, meningismus, lymphadenopathy, thyromegaly - Respiratory Respiratory exam: Present: normal lung sounds bilaterally - Cardiovascular Cardiovascular Exam: Present: regular rate, normal rhythm, normal heart sounds - GI/Abdominal GI/Abdominal exam: Present: soft, normal bowel sounds. Absent: distended, tenderness, guarding, rebound, rigid, organomegaly, mass, bruit, pulsatile mass, hernia - Extremities Exam Extremities exam: Present: normal inspection, full ROM, normal capillary refill. Absent: pedal edema, calf tenderness - Back Exam Back exam: Present: normal inspection, full ROM. Absent: CVA tenderness (R), CVA tenderness (L) - Neurological Exam Neurological exam: Present: alert, oriented X3, CN II-XII intact, normal gait, reflexes normal. Absent: motor sensory deficit - Psychiatric Psychiatric exam: Present: normal mood, suicidal ideation. Absent: homicidal ideation - Skin Skin exam: Present: warm, intact, normal color ED Course Vital Signs 02/19/20 02/19/20 02/19/20 11:14 13:27 13:29 Temperature 98.3 F 98.5 F Pulse Rate 97 H 85 Respiratory 14 18 18 Rate Blood Pressure 138/75 Blood Pressure 125/80 [Left] O2 Sat by Pulse 97 100 100 Oximetry ED Medical Decision Making - Lab Data Result diagrams: 02/19/20 11:58 02/19/20 11:58 - Medical Decision Making Patient is 30 years old male with history of schizophrenia. Patient presented to the ER complaining of suicidal and homicidal ideation. [facility]. Patient stated that he did not get the help he want. Patient does not have plan. He admitted that he is hearing voices sometimes. No visual hallucination. Labs reviewed and is unremarkable. Patient has been evaluated by our psychiatri c team and advised patient does not meet inpatient criteria and patient referred to follow-up as an outpatient. Patient is medically and psychiatrically stable for discharge. JC PEARL SHAMEKA Male : 1990 MedRec# [id number] 02/19/20 14:23 - MH Camera Storage Clerk's Note by [facility]: [id number] : 1990 Patient Age: 30 Pt is a 30 yo AA male presenting to ED for MHE, as pt reported SI; Drug Addiction; A/V Hallucinations. During ax, pt presented with cooperative behaviors, calm mood and congruent affect. Pt states "I have SI; Drug Addiction". Pt d/c from [facility] 02/18/20 after a nine day IP tx. Pt states "My momma just put me out this morning,told [facility] the medication was working because I was ready to go". Pt appears to be seeking secondary gain. Pt is homeless. Pt has as had ten ED visits in 2019. Pt reports A/V Halluciantions. Pt does not appear to be responding to internal stimui. Pt thought process is clear. PT sates "I need to go to a faciklilty that can help me get on my medications, then somewhere so I can get my kids back, [facility] and these other places treat me like a child". Pt denies hx of attempts. Collateral report mh hx of Bipolar Dx, Schizophrenia. Pt reports marijuama abuse. Pt reports smoking a blunt daily since age 13. Pt last use was 02/19/20. Pt reports homelessness. Pt is unemployed. Pt denies legal issues, Pt denies Decline in sleep/appetite. Recommendations: At this time pt presents with SI, marijuna abuse, malingering . Pt does not meet criteria for OP Tx. Pt provided with OP resources, longterm resources, and follow d/c plan from [facility]. Initialized on 02/19/20 14:23 - END OF NOTE Critical care attestation.: If time is entered above; I have spent that time in minutes in the direct care of this critically ill patient, excluding procedure time. ED Disposition Clinical Impression: Suicidal ideation Disposition: DC-01 TO HOME OR SELFCARE Is pt being admited?: No Condition: Stable Instructions: Suicidal Feelings: How to Help Yourself Referrals: PRIMARY CARE, [Primary Care Provider] - 3-5 Days
== END 2020-02-19 16:24 | disposition home or self-care (01) ==
LOC: ED 11:05
DX: R45.851 Suicidal ideations (principal); F25.9 Schizoaffective disorder, unspecified; G43.909 Migraine, unspecified, not intractable, without status migrainosus; D64.9 Anemia, unspecified; F17.200 Nicotine dependence, unspecified, uncomplicated; F12.90 Cannabis use, unspecified, uncomplicated; F14.90 Cocaine use, unspecified, uncomplicated; Z79.899 Other long term (current) drug therapy
CPT/HCPCS: 36415; 80048; 80307; 80320; 81001; 85025; G0480

== ENCOUNTER 2020-02-19 21:31 | Emergency (ER) | payer SELFPAY ==
[2020-02-19 21:38] VITALS: BP 116/68
[2020-02-19 22:06] LABS: Basophils % (Auto) 0.3 % (0.0-1.8); Eosinophils # (Auto) 0.1 K/mm3 (0.0-0.4); Eosinophils % (Auto) 0.7 % (0.0-4.3); Hematocrit 39.6 % (35.5-45.6); Hemoglobin 12.8 gm/dl (11.8-15.2); Lymphocytes # (Auto) 2.7 K/mm3 (1.2-5.4); Lymphocytes % (Auto) 27.4 % (13.4-35.0); Mean Corpuscular HGB Conc 32 % (32-34); Mean Corpuscular Volume 82 fl (84-94); Monocytes # (Auto) 0.8 K/mm3 (0.0-0.8); Monocytes % (Auto) 7.6 % (0.0-7.3); Platelet Count 237 K/mm3 (140-440); Red Blood Count 4.84 M/mm3 (3.65-5.03); Red Cell Distribution Width 14.8 % (13.2-15.2)
[2020-02-19 22:15] LABS: BUN/Creatinine Ratio 11; Blood Urea Nitrogen 10 mg/dL (9-20); Calcium 9.3 mg/dL (8.4-10.2); Hemolysis Index 7
== END 2020-02-20 03:00 ==
LOC: ED 21:31
DX: R44.0 Auditory hallucinations (principal); Z53.21 Procedure and treatment not carried out due to patient leaving prior to being seen by health care provider
CPT/HCPCS: 36415; 80048; 80320; 85025; G0480

== ENCOUNTER 2020-02-20 08:42 | Emergency (ER) | payer SELFPAY ==
[2020-02-20] MEDS ORDERED: ALUM-MAG HYDROXIDE-SIMETHICONE 200-200-20MG/5ML ORAL LIQD 30 ML PO PRN (12:24)
[2020-02-20] MEDS ORDERED: MAGNESIUM HYDROXIDE (MOM) ORAL LIQD UDC PO PRN (12:24)
[2020-02-20] MEDS ORDERED: ACETAMINOPHEN 325 MG TAB PO PRN (12:24)
[2020-02-20] MEDS ORDERED: IBUPROFEN 600 MG TAB PO ONE (12:25)
[2020-02-20 12:59] LABS: BUN/Creatinine Ratio 17; Blood Urea Nitrogen 17 mg/dL (9-20); Calcium 9.6 mg/dL (8.4-10.2); Hemolysis Index 7
[2020-02-20 13:02] LABS: Basophils % (Auto) 0.3 % (0.0-1.8); Eosinophils # (Auto) 0.1 K/mm3 (0.0-0.4); Eosinophils % (Auto) 1.3 % (0.0-4.3); Hemoglobin 12.6 gm/dl (11.8-15.2); Lymphocytes # (Auto) 0.8 K/mm3 (1.2-5.4); Lymphocytes % (Auto) 10.7 % (13.4-35.0); Mean Corpuscular HGB Conc 32 % (32-34); Mean Corpuscular Volume 82 fl (84-94); Monocytes # (Auto) 0.6 K/mm3 (0.0-0.8); Monocytes % (Auto) 8.2 % (0.0-7.3); Platelet Count 221 K/mm3 (140-440); Red Blood Count 4.77 M/mm3 (3.65-5.03); Red Cell Distribution Width 14.8 % (13.2-15.2)
[2020-02-20 13:35] LABS: Bilirubin,Urine NEG (Negative); Blood,Urine NEG (Negative); Color,Urine Yellow (Yellow); Mucus,Urine FEW /HPF; Protein,Urine <15 mg/dL mg/dL (Negative); WBC,Urine < 1.0 /HPF (0.0-6.0)
[2020-02-20 13:42] LABS: Amphetamine Screen,Urine Negative; Benzodiazepines Screen,Urine Negative; Cocaine Screen,Urine Negative; Methadone Screen,Urine Negative; Opiate Screen,Urine Negative
[2020-02-20 13:57] LABS: Cannabinoid Screen,Urine PRESUMPTIVE POSITIVE
--- NOTE | 2020-02-20 14:06 | Emergency Department Report ---
ED Psych HPI - General Chief Complaint: Psych Stated Complaint: HEARING VOICES/PAIN Time Seen by Provider: 02/20/20 11:12 Source: patient Mode of arrival: Ambulatory - History of Present Illness Initial Comments: 30-year-old male with psychiatric disorder and stated suicidal ideation. Patient is giving me apparently factitious history as per the mental health welding teacher. He states to me that the last time he was admitted to a mental health hospital was last week and that the hospital was [facility]. He states that he was on Wellbutrin and trazodone. However, he claims he was discharged on 2 new medications which he was given a dispense quantity. He then tells me that he went home yesterday after being at [facility]. He does admit that he is having issues with his family at home and now has no place to stay. He states that he is previously thought of taking an overdose or walking into traffic. He states that he is having these thoughts again. According to the mental health welding teacher, the patient actually has been in [facility] as an inpatient for approximately 10 days. She states that he was discharged from [facility] yesterday and went home. Apparently, he is having domestic issues with his family. She states that he does not currently meet 1013 criteria. However, she has not staffed him yet with a licensed psychiatric provider and w ill do so. Complaint: suicidal ideation -: days(s) (History is variable) Associated Psychiatric Symptoms: other History of same: Yes Quality: intermittent Improves With: none Worsens With: none Associated Symptoms: denies other symptoms, other (Complains of allodynia which is chronic) Treatments Prior to Arrival: none If Self Harm: admits thoughts of - Related Data Home Medications Medication Instructions Recorded Confirmed Last Taken OLANZapine [Zyprexa] 15 mg PO DAILY 02/20/20 02/20/20 Unknown Wellbutrin 150 mg PO DAILY 02/20/20 02/20/20 Unknown traZODone [Desyrel] 50 mg PO QHS 02/20/20 02/20/20 Unknown Allergies Allergy/AdvReac Type Severity Reaction Status Date / Time No Known Allergies Allergy Verified 12/25/19 11:50 ED Review of Systems ROS: Stated complaint: HEARING VOICES/PAIN Other details as noted in HPI Constitutional: other (Hurting all over). denies: chills, fever Eyes: denies: eye pain, vision change ENT: denies: ear pain, throat pain Respiratory: denies: cough, shortness of breath, wheezing Cardiovascular: denies: palpitations, syncope Endocrine: no symptoms reported Gastrointestinal: denies: abdominal pain, nausea, diarrhea Genitourinary: denies: urgency, dysuria Musculoskeletal: as per HPI. denies: back pain, arthralgia Skin: denies: rash, lesions Neurological: denies: headache, weakness, paresthesias Psychiatric: denies: anxiety, depression Hematological/Lymphatic: denies: easy bleeding, easy bruising ED Past Medical Hx - Past Medical History Previous Medical History?: Yes Hx Headaches / Migraines: Yes Hx Psychiatric Treatment: Yes (Bi polar, schizophrenia) Additional medical history: anemia - Social History Smoking Status: Current Every Day Smoker Substance Use Type: Cocaine, Marijuana - Medications Home Medications: Home Medications Medication Instructions Recorded Confirmed Last Taken Type OLANZapine [Zyprexa] 15 mg PO DAILY 02/20/20 02/20/20 Unknown History Wellbutrin 150 mg PO DAILY 02/20/20 02/20/20 Unknown History traZODone [Desyrel] 50 mg PO QHS 02/20/20 02/20/20 Unknown History ED Physical Exam - General Limitations: No Limitations General appearance: alert, in no apparent distress - Head Head exam: Present: atraumatic, normocephalic - Eye Eye exam: Present: normal appearance. Absent: scleral icterus - ENT ENT exam: Present: mucous membranes moist - Neck Neck exam: Present: normal inspection - Respiratory Respiratory exam: Present: normal lung sounds bilaterally. Absent: respiratory distress - Cardiovascular Cardiovascular Exam: Present: regular rate, normal rhythm. Absent: systolic murmur, diastolic murmur, rubs, gallop - GI/Abdominal GI/Abdominal exam: Present: soft, normal bowel sounds. Absent: distended, tenderness - Rectal Rectal exam: Present: deferred - Extremities Exam Extremities exam: Present: normal inspection. Absent: pedal edema, joint swelling - Back Exam Back exam: Present: normal inspection - Neurological Exam Neurological exam: Present: alert, oriented X3, CN II-XII intact. Absent: motor sensory deficit - Psychiatric Psychiatric exam: Present: agitated, other (My general impression was that the patient was somewhat paranoid but not frankly delusional. He was coherent d uring the assessment.) - Skin Skin exam: Present: warm, dry, intact, normal color. Absent: rash ED Course Vital Signs 02/20/20 02/20/20 09:07 11:46 Temperature 98.8 F 98.8 F Pulse Rate 104 H 98 H Respiratory 18 18 Rate Blood Pressure 125/66 Blood Pressure 118/67 [Left] O2 Sat by Pulse 98 100 Oximetry - Reevaluation(s) Reevaluation #1: Patient is well-known to the [facility] staff. I will defer the disposition to them considering he was just discharged. 02/20/20 14:12 ED Medical Decision Making - Lab Data Result diagrams: 02/20/20 11:58 02/20/20 11:58 Laboratory Results - last 24 hr 02/20/20 02/20/20 02/20/20 11:58 11:58 11:58 WBC 7.2 RBC 4.77 Hgb 12.6 Hct 39.0 MCV 82 L MCH 27 L MCHC 32 RDW 14.8 Plt Count 221 Lymph % (Auto) 10.7 L Blanco % (Auto) 8.2 H Eos % (Auto) 1.3 Baso % (Auto) 0.3 Lymph # (Auto) 0.8 L Blanco # (Auto) 0.6 Eos # (Auto) 0.1 Baso # (Auto) 0.0 Seg Neutrophils % 79.5 H Seg Neutrophils # 5.7 Sodium 140 Potassium 3.9 Chloride 103.7 Carbon Dioxide 27 Anion Gap 13 BUN 17 Creatinine 1.0 Estimated GFR > 60 BUN/Creatinine Ratio 17 Glucose 87 Calcium 9.6 Urine Color Urine Turbidity Urine pH Ur Specific Dwarf Urine Protein Urine Glucose (UA) Urine Ketones Urine Blood Urine Nitrite Urine Bilirubin Urine Urobilinogen Ur Leukocyte Esterase Urine WBC (Auto) Urine RBC (Auto) U Epithel Cells (Auto) Urine Mucus Salicylates < 0.3 L Urine Opiates Screen Urine Methadone Screen Acetaminophen Ur Barbiturates Screen Ur Phencyclidine Scrn Ur Amphetamines Screen U Benzodiazepines Scrn Urine Cocaine Screen U Marijuana (THC) Screen Drugs of Abuse Note Plasma/Serum Alcohol 02/20/20 02/20/20 02/20/20 11:58 11:58 12:27 WBC RBC Hgb Hct MCV MCH MCHC RDW Plt Count Lymph % (Auto) Blanco % (Auto) Eos % (Auto) Baso % (Auto) Lymph # (Auto) Blanco # (Auto) Eos # (Auto) Baso # (Auto) Seg Neutrophils % Seg Neutrophils # Sodium Potassium Chloride Carbon Dioxide Anion Gap BUN Creatinine Estimated GFR BUN/Creatinine Ratio Glucose Calcium Urine Color Yellow Urine Turbidity Clear Urine pH 5.0 Ur Specific Dwarf 1.027 Urine Protein <15 mg/dl Urine Glucose (UA) Neg Urine Ketones Neg Urine Blood Neg Urine Nitrite Neg Urine Bilirubin Neg Urine Urobilinogen 2.0 Ur Leukocyte Esterase Neg Urine WBC (Auto) < 1.0 Urine RBC (Auto) 1.0 U Epithel Cells (Auto) < 1.0 Urine Mucus Few Salicylates Urine Opiates Screen Urine Methadone Screen Acetaminophen 5.0 L Ur Barbiturates Screen Ur Phencyclidine Scrn Ur Amphetamines Screen U Benzodiazepines Scrn Urine Cocaine Screen U Marijuana (THC) Screen Drugs of Abuse Note Plasma/Serum Alcohol < 0.01 02/20/20 12:27 WBC RBC Hgb Hct MCV MCH MCHC RDW Plt Count Lymph % (Auto) Blanco % (Auto) Eos % (Auto) Baso % (Auto) Lymph # (Auto) Blanco # (Auto) Eos # (Auto) Baso # (Auto) Seg Neutrophils % Seg Neutrophils # Sodium Potassium Chloride Carbon Dioxide Anion Gap BUN Creatinine Estimated GFR BUN/Creatinine Ratio Glucose Calcium Urine Color Urine Turbidity Urine pH Ur Specific Dwarf Urine Protein Urine Glucose (UA) Urine Ketones Urine Blood Urine Nitrite Urine Bilirubin Urine Urobilinogen Ur Leukocyte Esterase Urine WBC (Auto) Urine RBC (Auto) U Epithel Cells (Auto) Urine Mucus Salicylates Urine Opiates Screen Negative Urine Methadone Screen Negative Acetaminophen Ur Barbiturates Screen Negative Ur Phencyclidine Scrn Negative Ur Amphetamines Screen Negative U Benzodiazepines Scrn Negative Urine Cocaine Screen Negative U Marijuana (THC) Screen Presumptive positive Drugs of Abuse Note Disclamer Plasma/Serum Alcohol Critical care attestation.: If time is entered above; I have spent that time in minutes in the direct care of this critically ill patient, excluding procedure time. ED Disposition Clinical Impression: Schizoaffective disorder Qualifiers: Schizoaffective disorder type: unspecified Qualified Code(s): F25.9 - Schizoaffective disorder, unspecified Disposition: DC/TX-65 PSY HOSP/PSY UNIT Is pt being admited?: No Does the pt Need Aspirin: No Condition: Stable Referrals: PRIMARY CARE, [Primary Care Provider] - 3-5 Days Time of Disposition: 15:25
[2020-02-20 17:31] VITALS: BP 118/68
== END 2020-02-20 17:39 | disposition home or self-care (01) ==
LOC: ED 08:42
DX: F25.0 Schizoaffective disorder, bipolar type (principal); G40.909 Epilepsy, unspecified, not intractable, without status epilepticus; D64.9 Anemia, unspecified; F17.200 Nicotine dependence, unspecified, uncomplicated; F12.90 Cannabis use, unspecified, uncomplicated; F14.90 Cocaine use, unspecified, uncomplicated; Z79.899 Other long term (current) drug therapy
CPT/HCPCS: 36415; 80048; 80307; 80320; 81001; 85025; G0480

== ENCOUNTER 2020-02-20 22:34 | Emergency (ER) | payer SELFPAY | END 2020-02-20 23:50 | disposition left against medical advice (07) | LOC: ED 22:34 | DX: R45.851 Suicidal ideations (principal); Z53.21 Procedure and treatment not carried out due to patient leaving prior to being seen by health care provider ==

== ENCOUNTER 2020-02-21 04:13 | Emergency (ER) | payer SELFPAY ==
[2020-02-21 04:35] VITALS: BP 119/73
--- NOTE | 2020-02-21 09:49 | Emergency Department Report ---
ED General Adult HPI - General Chief complaint: Psych Stated complaint: MH Time Seen by Provider: 02/21/20 09:14 Source: patient Mode of arrival: Ambulatory Limitations: No Limitations - History of Present Illness Initial comments: Patient is a 30-year-old male well-known to this department with recent discharge from [facility] who presents after using crack cocaine for reevaluation of complaints of homelessness. Patient complaining of depressive feelings without suicidality, without suicidal plan. Mental health counselor in room discussing plan upon arrival to meet patient. Patient denies any further complaints. - Related Data Home Medications Medication Instructions Recorded Confirmed Last Taken OLANZapine [Zyprexa] 15 mg PO DAILY 02/20/20 02/20/20 Unknown Wellbutrin 150 mg PO DAILY 02/20/20 02/20/20 Unknown traZODone [Desyrel] 50 mg PO QHS 02/20/20 02/20/20 Unknown Allergies Allergy/AdvReac Type Severity Reaction Status Date / Time No Known Allergies Allergy Verified 12/25/19 11:50 ED Review of Systems ROS: Stated complaint: MH Other details as noted in HPI Comment: All other systems reviewed and negative ED Past Medical Hx - Past Medical History Previous Medical History?: Yes Hx Headaches / Migraines: Yes Hx Psychiatric Treatment: Yes (Bi polar, schizophrenia) Additional medical history: anemia - Surgical History Past Surgical History?: No - Social History Smoking Status: Current Every Day Smoker Substance Use Type: Alcohol, Cocaine, Marijuana - Medications Home Medications: Home Medications Medication Instructions Recorded Confirmed Last Taken Type OLANZapine [Zyprexa] 15 mg PO DAILY 02/20/20 02/20/20 Unknown History Wellbutrin 150 mg PO DAILY 02/20/20 02/20/20 Unknown History traZODone [Desyrel] 50 mg PO QHS 02/20/20 02/20/20 Unknown History ED Physical Exam - General Limitations: No Limitations General appearance: alert, in no apparent distress - Head Head exam: Present: atraumatic, normocephalic - Eye Eye exam: Present: normal appearance - ENT ENT exam: Present: mucous membranes moist - Neck Neck exam: Present: normal inspection - Respiratory Respiratory exam: Present: normal lung sounds bilaterally. Absent: respiratory distress - Cardiovascular Cardiovascular Exam: Present: regular rate, normal rhythm. Absent: systolic murmur, diastolic murmur, rubs, gallop - GI/Abdominal GI/Abdominal exam: Present: soft, normal bowel sounds - Rectal Rectal exam: Present: deferred - Extremities Exam Extremities exam: Present: normal inspection - Back Exam Back exam: Present: normal inspection - Neurological Exam Neurological exam: Present: alert, oriented X3 - Psychiatric Psychiatric exam: Present: normal affect, normal mood - Skin Skin exam: Present: warm, dry, intact, normal color. Absent: rash ED Course Vital Signs 02/21/20 04:32 Temperature 98.7 F Pulse Rate 84 Respiratory 17 Rate Blood Pressure 119/73 O2 Sat by Pulse 98 Oximetry ED Medical Decision Making - Medical Decision Making Patient with recurrent visits to this ER for same including the past 2 days. Patient likely seeking secondary gain which is confirmed by previous evaluation. Mental health counselor evaluated patient today who agrees, recommends out patient substance abuse and to homelessness resources. Critical care attestation.: If time is entered above; I have spent that time in minutes in the direct care of this critically ill patient, excluding procedure time. ED Disposition Clinical Impression: Cocaine abuse Disposition: DC-01 TO HOME OR SELFCARE Is pt being admited?: No Condition: Stable Referrals: PRIMARY CARE, [Primary Care Provider] - 3-5 Days
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
== END 2020-02-21 12:08 | disposition home or self-care (01) ==
LOC: ED 04:13
DX: F14.10 Cocaine abuse, uncomplicated (principal); F25.0 Schizoaffective disorder, bipolar type; F17.200 Nicotine dependence, unspecified, uncomplicated; F12.10 Cannabis abuse, uncomplicated; Z98.890 Other specified postprocedural states; Z79.899 Other long term (current) drug therapy
CPT/HCPCS: 99283

== ENCOUNTER 2020-03-12 06:29 | Emergency (ER) | payer SELFPAY ==
[2020-03-12 06:40] VITALS: BP 140/85
[2020-03-12 07:38] LABS: Basophils % (Auto) 0.2 % (0.0-1.8); Eosinophils % (Auto) 0.1 % (0.0-4.3); Hematocrit 40.8 % (35.5-45.6); Hemoglobin 13.6 gm/dl (11.8-15.2); Lymphocytes # (Auto) 1.2 K/mm3 (1.2-5.4); Mean Corpuscular HGB Conc 33 % (32-34); Mean Corpuscular Volume 80 fl (84-94); Monocytes # (Auto) 0.6 K/mm3 (0.0-0.8); Monocytes % (Auto) 6.9 % (0.0-7.3); Platelet Count 228 K/mm3 (140-440); Red Cell Distribution Width 14.5 % (13.2-15.2)
[2020-03-12 07:41] LABS: Bilirubin,Urine NEG (Negative); Blood,Urine NEG (Negative); Color,Urine Straw (Yellow); Protein,Urine <15 mg/dL mg/dL (Negative); RBC,Urine < 1.0 /HPF (0.0-6.0); Urobilinogen,Urine < 2.0 mg/dL (<2.0)
[2020-03-12 07:49] LABS: Amphetamine Screen,Urine Negative; Benzodiazepines Screen,Urine Negative; Methadone Screen,Urine Negative; Opiate Screen,Urine Negative
[2020-03-12 07:59] LABS: BUN/Creatinine Ratio 10; Blood Urea Nitrogen 8 mg/dL (9-20); Calcium 9.6 mg/dL (8.4-10.2); Hemolysis Index 5
[2020-03-12 08:01] LABS: Cannabinoid Screen,Urine Positive; Cocaine Screen,Urine Positive
--- NOTE | 2020-03-12 08:19 | Emergency Department Report ---
ED Psych HPI - General Chief Complaint: Psych Stated Complaint: MH Time Seen by Provider: 03/12/20 08:05 Source: patient Mode of arrival: Ambulatory Limitations: No Limitations - History of Present Illness Initial Comments: 30-year-old male with a past medical history of schizophrenia, bipolar disorder, and polysubstance abuse presents to the hospital with complaints of suicidal ideation with plan. Patient states he has been compliant with his Wellbutrin and Zyprexa. He no longer takes trazodone or Depakote. He has been abusing cocaine, week, and alcohol. He is recently homeless due to conflicts with his parents. Patient states he is having auditory hallucinations but denies visual hallucinations. History of suicide attempt by "walking into traffic". His suicide plan today is to walk into traffic. Patient was here several times in February with similar complaint of suicidal ideation and homelessness. Patient states he is scared and does not know what else to do. Patient denies cough or fever. He states he was around his mother yesterday who tested positive for Covid 4 days prior. - Related Data Home Medications Medication Instructions Recorded Confirmed Last Taken OLANZapine [Zyprexa] 15 mg PO DAILY 02/20/20 02/20/20 Unknown Wellbutrin 150 mg PO DAILY 02/20/20 02/20/20 Unknown traZODone [Desyrel] 50 mg PO QHS 02/20/20 02/20/20 Unknown Previous Rx's Medication Instructions Recorded Last Taken Type Divalproex ER [DepaKOTE ER] 250 mg PO TID #21 tablet 02/21/20 Unknown Rx Allergies Allergy/AdvReac Type Severity Reaction Status Date / Time No Known Allergies Allergy Verified 12/25/19 11:50 ED Review of Systems ROS: Stated complaint: MH Other details as noted in HPI Comment: All other systems reviewed and negative ED Past Medical Hx - Past Medical History Hx Headaches / Migraines: Yes Hx Psychiatric Treatment: Yes (Bi polar, schizophrenia) Additional medical history: anemia - Surgical History Past Surgical History?: No - Social History Smoking Status: Current Every Day Smoker Substance Use Type: Alcohol, Cocaine, Marijuana - Medications Home Medications: Home Medications Medication Instructions Recorded Confirmed Last Taken Type OLANZapine [Zyprexa] 15 mg PO DAILY 02/20/20 02/20/20 Unknown History Wellbutrin 150 mg PO DAILY 02/20/20 02/20/20 Unknown History traZODone [Desyrel] 50 mg PO QHS 02/20/20 02/20/20 Unknown History Divalproex ER [DepaKOTE ER] 250 mg PO TID #21 tablet 02/21/20 Unknown Rx ED Physical Exam - General Limitations: No Limitations - Other Other exam information: General: No acute distress Head: Atraumatic Eyes: normal appearance ENT: Moist mucous membranes Neck: Normal appearance, no midline tenderness Chest: Clear to auscultation bilaterally CV: Regular rate and rhythm Abdomen: Soft, normal bowel sounds, nontender, nondistended, no rebound or guarding Back: Normal inspection Extremity: Normal inspection, full range of motion Neuro: Alert O x 3, no facial asymmetry, speech clear, no gross motor sensory deficit Psych: Appropriate behavior Skin: No rash ED Course Vital Signs 03/12/20 06:38 Temperature 97.6 F Pulse Rate 92 H Respiratory 16 Rate Blood Pressure 140/85 [Right] O2 Sat by Pulse 99 Oximetry ED Medical Decision Making - Lab Data Result diagrams: 03/12/20 07:09 03/12/20 07:09 Lab Results 03/12/20 03/12/20 03/12/20 Range/Units 07:09 07:09 07:09 WBC (4.5-11.0) K/mm3 RBC (3.65-5.03) M/mm3 Hgb (11.8-15.2) gm/dl Hct (35.5-45.6) % MCV (84-94) fl MCH (28-32) pg MCHC (32-34) % RDW (13.2-15.2) % Plt Count (140-440) K/mm3 Lymph % (Auto) (13.4-35.0) % Moody % (Auto) (0.0-7.3) % Eos % (Auto) (0.0-4.3) % Baso % (Auto) (0.0-1.8) % Lymph # (Auto) (1.2-5.4) K/mm3 Moody # (Auto) (0.0-0.8) K/mm3 Eos # (Auto) (0.0-0.4) K/mm3 Baso # (Auto) (0.0-0.1) K/mm3 Seg Neutrophils % (40.0-70.0) % Seg Neutrophils # (1.8-7.7) K/mm3 Sodium 135 L (137-145) mmol/L Potassium 4.1 (3.6-5.0) mmol/L Chloride 99.0 (98-107) mmol/L Carbon Dioxide 29 (22-30) mmol/L Anion Gap 11 mmol/L BUN 8 L (9-20) mg/dL Creatinine 0.8 (0.8-1.3) mg/dL Estimated GFR > 60 ml/min BUN/Creatinine Ratio 10 % Glucose 114 H (75-100) mg/dL Calcium 9.6 (8.4-10.2) mg/dL Urine Color (Yellow) Urine Turbidity (Clear) Urine pH (5.0-7.0) Ur Specific [place] (1.003-1.030) Urine Protein (Negative) mg/dL Urine Glucose (UA) (Negative) mg/dL Urine Ketones (Negative) mg/dL Urine Blood (Negative) Urine Nitrite (Negative) Urine Bilirubin (Negative) Urine Urobilinogen (<2.0) mg/dL Ur Leukocyte Esterase (Negative) Urine WBC (Auto) (0.0-6.0) /HPF Urine RBC (Auto) (0.0-6.0) /HPF Salicylates < 0.3 L (2.8-20.0) mg/dL Urine Opiates Screen Urine Methadone Screen Acetaminophen 5.0 L (10.0-30.0) ug/mL Ur Barbiturates Screen Valproic Acid < 2.8 L (50-100) ug/mL Ur Phencyclidine Scrn Ur Amphetamines Screen U Benzodiazepines Scrn Urine Cocaine Screen U Marijuana (THC) Screen Drugs of Abuse Note Plasma/Serum Alcohol (0-0.07) % 03/12/20 03/12/20 03/12/20 Range/Units 07:09 07:09 07:24 WBC 8.6 (4.5-11.0) K/mm3 RBC 5.10 H (3.65-5.03) M/mm3 Hgb 13.6 (11.8-15.2) gm/dl Hct 40.8 (35.5-45.6) % MCV 80 L (84-94) fl MCH 27 L (28-32) pg MCHC 33 (32-34) % RDW 14.5 (13.2-15.2) % Plt Count 228 (140-440) K/mm3 Lymph % (Auto) 14.0 (13.4-35.0) % Moody % (Auto) 6.9 (0.0-7.3) % Eos % (Auto) 0.1 (0.0-4.3) % Baso % (Auto) 0.2 (0.0-1.8) % Lymph # (Auto) 1.2 (1.2-5.4) K/mm3 Moody # (Auto) 0.6 (0.0-0.8) K/mm3 Eos # (Auto) 0.0 (0.0-0.4) K/mm3 Baso # (Auto) 0.0 (0.0-0.1) K/mm3 Seg Neutrophils % 78.8 H (40.0-70.0) % Seg Neutrophils # 6.8 (1.8-7.7) K/mm3 Sodium (137-145) mmol/L Potassium (3.6-5.0) mmol/L Chloride (98-107) mmol/L Carbon Dioxide (22-30) mmol/L Anion Gap mmol/L BUN (9-20) mg/dL Creatinine (0.8-1.3) mg/dL Estimated GFR ml/min BUN/Creatinine Ratio % Glucose (75-100) mg/dL Calcium (8.4-10.2) mg/dL Urine Color Straw (Yellow) Urine Turbidity Clear (Clear) Urine pH 6.0 (5.0-7.0) Ur Specific [place] 1.005 (1.003-1.030) Urine Protein <15 mg/dl (Negative) mg/dL Urine Glucose (UA) Neg (Negative) mg/dL Urine Ketones Neg (Negative) mg/dL Urine Blood Neg (Negative) Urine Nitrite Neg (Negative) Urine Bilirubin Neg (Negative) Urine Urobilinogen < 2.0 (<2.0) mg/dL Ur Leukocyte Esterase Neg (Negative) Urine WBC (Auto) 1.0 (0.0-6.0) /HPF Urine RBC (Auto) < 1.0 (0.0-6.0) /HPF Salicylates (2.8-20.0) mg/dL Urine Opiates Screen Urine Methadone Screen Acetaminophen (10.0-30.0) ug/mL Ur Barbiturates Screen Valproic Acid (50-100) ug/mL Ur Phencyclidine Scrn Ur Amphetamines Screen U Benzodiazepines Scrn Urine Cocaine Screen U Marijuana (THC) Screen Drugs of Abuse Note Plasma/Serum Alcohol < 0.01 (0-0.07) % 03/12/20 Range/Units 07:24 WBC (4.5-11.0) K/mm3 RBC (3.65-5.03) M/mm3 Hgb (11.8-15.2) gm/dl Hct (35.5-45.6) % MCV (84-94) fl MCH (28-32) pg MCHC (32-34) % RDW (13.2-15.2) % Plt Count (140-440) K/mm3 Lymph % (Auto) (13.4-35.0) % Moody % (Auto) (0.0-7.3) % Eos % (Auto) (0.0-4.3) % Baso % (Auto) (0.0-1.8) % Lymph # (Auto) (1.2-5.4) K/mm3 Moody # (Auto) (0.0-0.8) K/mm3 Eos # (Auto) (0.0-0.4) K/mm3 Baso # (Auto) (0.0-0.1) K/mm3 Seg Neutrophils % (40.0-70.0) % Seg Neutrophils # (1.8-7.7) K/mm3 Sodium (137-145) mmol/L Potassium (3.6-5.0) mmol/L Chloride (98-107) mmol/L Carbon Dioxide (22-30) mmol/L Anion Gap mmol/L BUN (9-20) mg/dL Creatinine (0.8-1.3) mg/dL Estimated GFR ml/min BUN/Creatinine Ratio % Glucose (75-100) mg/dL Calcium (8.4-10.2) mg/dL Urine Color (Yellow) Urine Turbidity (Clear) Urine pH (5.0-7.0) Ur Specific [place] (1.003-1.030) Urine Protein (Negative) mg/dL Urine Glucose (UA) (Negative) mg/dL Urine Ketones (Negative) mg/dL Urine Blood (Negative) Urine Nitrite (Negative) Urine Bilirubin (Negative) Urine Urobilinogen (<2.0) mg/dL Ur Leukocyte Esterase (Negative) Urine WBC (Auto) (0.0-6.0) /HPF Urine RBC (Auto) (0.0-6.0) /HPF Salicylates (2.8-20.0) mg/dL Urine Opiates Screen Negative Urine Methadone Screen Negative Acetaminophen (10.0-30.0) ug/mL Ur Barbiturates Screen Negative Valproic Acid (50-100) ug/mL Ur Phencyclidine Scrn Negative Ur Amphetamines Screen Negative U Benzodiazepines Scrn Negative Urine Cocaine Screen Positive U Marijuana (THC) Screen Positive Drugs of Abuse Note Disclamer Plasma/Serum Alcohol (0-0.07) % - Radiology Data Radiology results: report reviewed CHEST 1 VIEW 03/12/2020 7:39 AM INDICATION / CLINICAL INFORMATION: possible covid exposure. COMPARISON: None available. FINDINGS: SUPPORT DEVICES: None. HEART / MEDIASTINUM: No significant abnormality. LUNGS / PLEURA: No significant pulmonary or pleural abnormality. No pneumothorax. ADDITIONAL FINDINGS: No significant additional findings. IMPRESSION: 1. No acute findings. - Medical Decision Making [id number] male presents to the hospital with suicidal ideation and polysubs tance abuse. Frequent ER visits for similar complaints in February. Patient is also homeless with no place to stay. Patient does not endorse Covid symptoms however, reports Covid exposure. Initially Covid was ordered in anticipation of needing a negative results in order to place the patient. This was canceled however, after psychiatric assessment that deemed that patient is not a candidate for 1013. Chest x-ray also normal. Patient will be discharged with outpatient follow-up as per mental health recommendation. As per mental health not below Assessment and Plan (1) Cocaine Use Disorder (2) Substance Induced Mood Disorder (3) Noncompliance with other medical treatments and regimen TREATMENT d/c 1013 Continue and comply with previous medication regimen and outpatient Sitter: Defer to primary Medical: Per primary Disposition: Do not recommend acute inpatient psychiatric treatment. The patient should comply with medication regimen and see outpatient psychiatrist on a regular basis to manage his ongoing psychiatric symptoms and medication. He is to abstain from all illicit drug use. The computer equipment installer is to further discuss safety plan, give outpatient resources for CBT, drug rehab and med assistance programs He is to follow up with outpatient psych in 7 to 14 days upon discharge Will sign off. Thank you for this consult. The case was staffed with Dr. Singleton. He agrees with plan Critical Care Time: No Critical care attestation.: If time is entered above; I have spent that time in minutes in the direct care o f this critically ill patient, excluding procedure time. ED Disposition Clinical Impression: Suicidal ideation, Homeless, Substance use disorder, Bipolar disorder, Schizophrenia Disposition: DC-01 TO HOME OR SELFCARE Is pt being admited?: No Does the pt Need Aspirin: No Condition: Stable Instructions: Suicidal Feelings: How to Help Yourself, Managing Schizophrenia, Substance Use Disorder and Mental Illness Additional Instructions: Outpatient COMMUNITY [facility]al Health [facility]: [facility] [address] [place] [address] / [phone] Thursday thru Thursday - 8am - 5pm [facility] Address: [address] [place], [place] [address]Thursday thru Thursday- 7am-2pm [facility] Address: [address] [place] [address] Thursday thru Thursday: 8:30AM-5PM CRISIS RESOURCES [place] Crisis Line: Suicide Prevention Line: Crisis Text Line: Text START to 591012 Emergency: 911 In case of an emergency, please contact the following numbers: [place] Crisis and Access Line: Number: Crisis Text Line: (Text START) Number: 101203 Suicide Prevention Line: Number: Emergency Number: 911 SUBSTANCE ABUSE PROGRAMS: [facility]: Location: [place], [place] [facility] Address: [address] [place] [address] [facility]: Address: [address] [facility] [place] [address] [facility]: Address: [address] [place] [address] [facility]: Address: [address] [place] [address] [facility] Address: [address] [place] [address]. Please contact above numbers to attempt placement into free based program. Medicaid Programs: [facility]: Address: [address] [facility], [place] [address] [facility]: Address: [address] [place] [address] OUTPATIENT MENTAL HEALTH RESOURCES [facility], [facility] Keven Amezquita MD: [address] [place] [address] [place] [address] [place] [address] [facility]: [facility] [employer] [address] [place] [address] [place] [address] [phone] [facility]iatry: [facility]: [address] [facility] [address] [facility] [place] [address] [facility] [address] [facility]: Quinten Lu MD: [address] [facility] [address] [facility] [address] [place] [facility]: [address] [place], [place] [id number] [phone] [place] CRISIS AND ACCESS LINE: Referrals: PRIMARY CAREMD [Primary Care Provider] - 3-5 Days Mental health, resources [Other] - 7-10 days Time of Disposition: 12:04
--- NOTE | 2020-03-12 08:48 | XRay Report ---
CHEST 1 VIEW 03/12/2020 7:39 AM INDICATION / CLINICAL INFORMATION: possible covid exposure. COMPARISON: None available. FINDINGS: SUPPORT DEVICES: None. HEART / MEDIASTINUM: No significant abnormality. LUNGS / PLEURA: No significant pulmonary or pleural abnormality. No pneumothorax. ADDITIONAL FINDINGS: No significant additional findings. IMPRESSION: 1. No acute findings. Signer Name: Arnulfo Gonzáles MD Signed: 03/12/2020 8:44 AM Workstation Name: [id number]
--- NOTE | 2020-03-12 10:55 | Consultation ---
History of Present Illness - Reason for Consult Consult date: 03/12/20 Reason for consult: suicidal - History of Present Psychiatric Illness Emmett Dejesus is a 30y/o male patient who presents to the ER for suicidal thoughts. The patient is a/o x 3. He is calm and cooperative. The patient symptoms appear to be based on whether or not he can get a covid test. The p atient is asking for a COVID test and says he can't come back home unless he gets one. He says "If I don't get that I don't know what else to do." When informing the patient that he doesn't need a COVID test if he doesn't have symptoms. The patient says he has suicidal thoughts with a plan to walk into traffic. He says he's hearing voices but could not tell me what the voices are saying. The patient says he's been feeling this way for months. The patient says he and his mother doesn't not get along, and he wants somewhere else to go. He says he was compliant with his medication, but "have been off some of is since first week of February." The patient says he was recently at [facility] but they discharged him. The patient says "nothing is right for me." He says "the meds just don't seem to work. They give me violent nightmares." The patient admits to using "cocaine, crack and THC." He says "takes drug to help with deal with stuff and help me focus. I don't like to take them." The patient says "I argue with my mom, and she wants me to get a COVID. If not can you send me somewhere." When asking the patient if he got a COVID was he okay to go home the patient replied "yes, but if not I'd rather go somewhere." PAST PSYCHIATRIC HISTORY Diagnoses: Bipolar Suicide attempts or Self-harm behavior: "three times" Prior psychiatric hospitalizations: "Four times" Substance Abuse history: Cocaine, crack, TH Previous psychiatric medications tried: wellbutrin, xyprexa, trazodone Outpatient treatment: "a long time ago." PAST MEDICAL HISTORY: None reported Family Psychiatric History: None reported or documented SOCIAL HISTORY Marital Status: Single Living Arrangements: with parents Employment Status: Unemployed Access to guns/weapons: Denies Education: High school History of Abuse: None reported Legal History: denies REVIEW OF SYSTEMS Constitutional: Negative for weight loss ENT: Negative for stridor Respiratory: Negative for cough or hemoptysis All other systems reviewed and are negative MENTAL STATUS EXAMINATION General Appearance and Behavior: Age appropriate, good hygiene, wearing appropriate clothes, good eye contact Cooperation: Participating/engaged Psychomotor Behavior: Psychomotor normal Mood: "okay" Affect and affective range: congruent with stated mood Thought Process: Goal directed Thought Content: hallucinations Speech: Normal rate, volume and rhythm Suicidal Ideation: Yes Homicidal Ideation: Denies Hallucinations: Auditory Delusions: None elicited Impulse Control: Impaired Insight and Judgment: Limited insight and judgment Memory: Normal Attention: Normal Orientation: Alert, oriented Assessment and Plan (1) Cocaine Use Disorder (2) Substance Induced Mood Disorder (3) Noncompliance with other medical treatments and regimen TREATMENT d/c 1013 Continue and comply with previous medication regimen and outpatient Sitter: Defer to primary Medical: Per primary Disposition: Do not recommend acute inpatient psychiatric treatment. The patient should comply with medication regimen and see outpatient psychiatrist on a regular basis to manage his ongoing psychiatric symptoms and medication. He is to abstain from all illicit drug use. The bog worker is to further discuss safety plan, give outpatient resources for CBT, drug rehab and med assistance programs He is to follow up with outpatient psych in 7 to 14 days upon discharge Will sign off. Thank you for this consult. The case was staffed with Dr. Singleton. He agrees with plan. Medications and Allergies Allergies Allergy/AdvReac Type Severity Reaction Status Date / Time No Known Allergies Allergy Verified 12/25/19 11:50 Home Medications Medication Instructions Recorded Confirmed Last Taken Type OLANZapine [Zyprexa] 15 mg PO DAILY 02/20/20 02/20/20 Unknown History Wellbutrin 150 mg PO DAILY 02/20/20 02/20/20 Unknown History traZODone [Desyrel] 50 mg PO QHS 02/20/20 02/20/20 Unknown History Divalproex ER [DepaKOTE ER] 250 mg PO TID #21 tablet 02/21/20 Unknown Rx Mental Status Exam - Vital signs Last Vital Signs Temp 97.6 F 03/12/20 06:38 Pulse 92 H 03/12/20 06:38 Resp 16 03/12/20 06:38 BP 140/85 03/12/20 06:38 Pulse Ox 99 03/12/20 06:38 Results Result Diagrams: 03/12/20 07:09 03/12/20 07:09 Abnormal lab results 03/12/20 03/12/20 03/12/20 Range/Units 07:09 07:09 07:09 RBC (3.65-5.03) M/mm3 MCV (84-94) fl MCH (28-32) pg Seg Neutrophils % (40.0-70.0) % Sodium 135 L (137-145) mmol/L BUN 8 L (9-20) mg/dL Glucose 114 H (75-100) mg/dL Salicylates < 0.3 L (2.8-20.0) mg/dL Acetaminophen 5.0 L (10.0-30.0) ug/mL Valproic Acid < 2.8 L (50-100) ug/mL 03/12/20 Range/Units 07:09 RBC 5.10 H (3.65-5.03) M/mm3 MCV 80 L (84-94) fl MCH 27 L (28-32) pg Seg Neutrophils % 78.8 H (40.0-70.0) % Sodium (137-145) mmol/L BUN (9-20) mg/dL Glucose (75-100) mg/dL Salicylates (2.8-20.0) mg/dL Acetaminophen (10.0-30.0) ug/mL Valproic Acid (50-100) ug/mL All other labs normal.
== END 2020-03-12 13:36 | disposition home or self-care (01) ==
LOC: ED 06:29
DX: F19.10 Other psychoactive substance abuse, uncomplicated (principal); F25.0 Schizoaffective disorder, bipolar type; F17.200 Nicotine dependence, unspecified, uncomplicated; F12.10 Cannabis abuse, uncomplicated; F14.10 Cocaine abuse, uncomplicated; Z79.899 Other long term (current) drug therapy
CPT/HCPCS: 36415; 71045; 80048; 80164; 80307; 80320; 81001; 85025; 99283; G0480

== ENCOUNTER 2020-03-12 14:20 | Emergency (ER) | payer SELFPAY ==
[2020-03-12 15:09] VITALS: BP 100/76
--- NOTE | 2020-03-12 15:38 | Emergency Department Report ---
ED General Adult HPI - General Chief complaint: Medical Clearance Stated complaint: CHILLS,CHEST PAIN,NO APPETITE Time Seen by Provider: 03/12/20 15:07 Source: patient Mode of arrival: Ambulatory Limitations: No Limitations - History of Present Illness Initial comments: This is a 30-year-old male nontoxic well in appearance with no signs of distress presents with intermittent chills. _Patient was discharged today and stated is homeless and started to have chills and came back to the ED. Patient efrainetnyl denies any symptoms or complaints. Patient denies any chest pain, shortness of breathe, fever, chills, nausea, vomiting, headache, stiff neck, abdominal pain, numbness or tingling. Denies any URI symptoms. Patient denies any recent travels, long car rides, or recent hospital stays. Denies any allergies or significant PMH. Severity scale (0 -10): 0 Consistency: now resolved Improves with: none Worsens with: none Associated Symptoms: denies other symptoms. denies: confusion, chest pain, cough, diaphoresis, fever/chills, headaches, loss of appetite, malaise, nausea/vomiting, rash, seizure, shortness of breath, syncope, weakness - Related Data Home Medications Medication Instructions Recorded Confirmed Last Taken OLANZapine [Zyprexa] 15 mg PO DAILY 02/20/20 02/20/20 Unknown Wellbutrin 150 mg PO DAILY 02/20/20 02/20/20 Unknown traZODone [Desyrel] 50 mg PO QHS 02/20/20 02/20/20 Unknown Previous Rx's Medication Instructions Recorded Last Taken Type Divalproex ER [DepaKOTE ER] 250 mg PO TID #21 tablet 02/21/20 Unknown Rx Allergies Allergy/AdvReac Type Severity Reaction Status Date / Time No Known Allergies Allergy Verified 12/25/19 11:50 ED Review of Systems ROS: Stated complaint: CHILLS,CHEST PAIN,NO APPETITE Other details as noted in HPI Comment: All other systems reviewed and negative Constitutional: denies: chills, fever Eyes: denies: eye pain, eye discharge, vision change ENT: denies: ear pain, throat pain Respiratory: denies: cough, shortness of breath, wheezing Cardiovascular: denies: chest pain, palpitations Endocrine: no symptoms reported Gastrointestinal: denies: abdominal pain, nausea, diarrhea Genitourinary: denies: urgency, dysuria Musculoskeletal: denies: back pain, joint swelling, arthralgia Skin: denies: rash, lesions Neurological: denies: headache, weakness, paresthesias Psychiatric: denies: anxiety, depression Hematological/Lymphatic: denies: easy bleeding, easy bruising ED Past Medical Hx - Past Medical History Previous Medical History?: Yes Hx Headaches / Migraines: Yes Hx Psychiatric Treatment: Yes (Bi polar, schizophrenia) Additional medical history: anemia - Social History Smoking Status: Current Every Day Smoker Substance Use Type: Alcohol, Cocaine, Marijuana - Medications Home Medications: Home Medications Medication Instructions Recorded Confirmed Last Taken Type OLANZapine [Zyprexa] 15 mg PO DAILY 02/20/20 02/20/20 Unknown History Wellbutrin 150 mg PO DAILY 02/20/20 02/20/20 Unknown History traZODone [Desyrel] 50 mg PO QHS 02/20/20 02/20/20 Unknown History Divalproex ER [DepaKOTE ER] 250 mg PO TID #21 tablet 02/21/20 Unknown Rx ED Physical Exam - General Limitations: No Limitations General appearance: alert, in no apparent distress - Head Head exam: Present: atraumatic, normocephalic - Eye Eye exam: Present: normal appearance - Neck Neck exam: Present: normal inspection, full ROM - Respiratory Respiratory exam: Present: normal lung sounds bilaterally. Absent: respiratory distress, wheezes, rales, rhonchi, stridor, chest wall tenderness, accessory muscle use, decreased breath sounds, prolonged expiratory - Cardiovascular Cardiovascular Exam: Present: regular rate, normal rhythm, normal heart sounds. Absent: bradycardia, tachycardia, irregular rhythm, systolic murmur, diastolic murmur, rubs, gallop - Extremities Exam Extremities exam: Present: normal inspection, full ROM - Back Exam Back exam: Present: normal inspection, full ROM. Absent: tenderness, CVA tenderness (R), CVA tenderness (L), muscle spasm, paraspinal tenderness, vertebral tenderness, rash noted - Neurological Exam Neurological exam: Present: alert, oriented X3, normal gait - Psychiatric Psychiatric exam: Present: normal affect, normal mood - Skin Skin exam: Present: warm, dry, intact, normal color. Absent: rash ED Course Vital Signs 03/12/20 15:08 Temperature 98 F Pulse Rate 64 Respiratory 16 Rate Blood Pressure 100/76 [Right] O2 Sat by Pulse 98 Oximetry - Reevaluation(s) Reevaluation #1: 03/12/20 15:37 Patient is speaking in full sentences with no signs of distress noted. ED Medical Decision Making - Medical Decision Making Patient was instructed to Follow-up with a primary care doctor in 3-5 days or if symptoms worsen and continue return to emergency room as soon as possible. At time of discharge, the patient does not seem toxic or ill in appearance. No acute signs of distress noted. Patient agrees to discharge treatment plan of care. No further questions noted by the patient. Critical care attestation.: If time is entered above; I have spent that time in minutes in the direct care of this critically ill patient, excluding procedure time. ED Disposition Clinical Impression: General medical exam Disposition: MED SCREENING EXAM-LEFT Is pt being admited?: No Does the pt Need Aspirin: No Condition: Stable Additional Instructions: Follow-up with a primary care doctor in 3-5 days or if symptoms worsen and continue return to emergency room as soon as possible. Referrals: FARHAT MALDONADO MD [Primary Care Provider] - 3-5 Days CANDELARIO YOUNG MD [Staff Physician] - 3-5 Days Time of Disposition: 15:38
== END 2020-03-12 15:09 | disposition left against medical advice (07) ==
LOC: ED 14:20
DX: R07.89 Other chest pain (principal); Z53.21 Procedure and treatment not carried out due to patient leaving prior to being seen by health care provider

== ENCOUNTER 2020-08-02 07:33 | Emergency (ER) | payer OTHER, SELFPAY ==
--- NOTE | 2020-08-02 08:52 | Emergency Department Report ---
HPI - General Chief Complaint: Psych Time Seen by Provider: 08/02/20 08:08 - HPI HPI: Room 12 C The patient is a 30-year-old male present with a chief complaint of suicidal homicidal ideations. Patient has a history of schizophrenia and bipolar disorde r states he has not been compliant with his psychiatric medication. Patient states he came to the emergency department for multiple reasons including suicidal homicidal ideation for "a while." Patient states has been emotionally labile, suffering from insomnia and has had auditory hallucinations. Patient states she has had thoughts of going to the highway to throw "rocks to see if anyone would crash is also had thoughts of walking into traffic. Patient denies any attempts at harming himself ED Past Medical Hx - Past Medical History Previous Medical History?: Yes Hx Headaches / Migraines: Yes Hx Psychiatric Treatment: Yes (Bi polar, schizophrenia) Additional medical history: anemia - Surgical History Past Surgical History?: No - Family History Family history: no significant - Social History Smoking Status: Current Every Day Smoker (1 pack/day) Substance Use Type: Alcohol, Cocaine, Marijuana - Medications Home Medications: Home Medications Medication Instructions Recorded Confirmed Last Taken Type OLANZapine [Zyprexa] 15 mg PO DAILY 02/20/20 02/20/20 Unknown History Wellbutrin 150 mg PO DAILY 02/20/20 02/20/20 Unknown History traZODone [Desyrel] 50 mg PO QHS 02/20/20 02/20/20 Unknown History Divalproex ER [DepaKOTE ER] 250 mg PO TID #21 tablet 02/21/20 Unknown Rx ED Review of Systems ROS: Stated complaint: SI/HI/HEARING VOICES Other details as noted in HPI Constitutional: no symptoms reported Eyes: denies: eye pain ENT: denies: throat pain Respiratory: no symptoms reported Cardiovascular: denies: chest pain Endocrine: no symptoms reported Gastrointestinal: denies: abdominal pain Genitourinary: denies: dysuria Musculoskeletal: denies: back pain Neurological: denies: headache Psychiatric: auditory hallucinations, homicidal thoughts, suicidal thoughts Physical Exam - Physical Exam Physical Exam: GENERAL: The patient is well-developed well-nourished male sitting on chair not appearing to be in acute distress. [] HEENT: Normocephalic. Atraumatic. Extraocular motions are intact. Patient has moist mucous membranes. NECK: Supple. Trachea midline CHEST/LUNGS: Clear to auscultation. There is no respiratory distress noted. HEART/CARDIOVASCULAR: Regular. There is no tachycardia. There is no gallop rub or murmur. ABDOMEN: Abdomen is soft, nontender. Patient has normal bowel sounds. There is no abdominal distention. SKIN: There is no rash. There is no edema. There is no diaphoresis. NEURO: The patient is awake, alert, and oriented. The patient is cooperative. The patient has no focal neurologic deficits. The patient has normal speech and gait. MUSCULOSKELETAL: There is no evidence of acute injury. ED Medical Decision Making - Lab Data Result diagrams: 08/02/20 08:45 08/02/20 08:45 - Differential Diagnosis Suicidal ideation, homicidal ideation, schizophrenia Critical care attestation.: If time is entered above; I have spent that time in minutes in the direct care of this critically ill patient, excluding procedure time. ED Disposition Clinical Impression: Suicidal ideation, Homicidal ideation, Schizophrenia Disposition: [id number] PSY HOSP/PSY UNIT Is pt being admited?: No Does the pt Need Aspirin: No Condition: Stable
[2020-08-02 09:31] LABS: Eosinophils % (Auto) 0.5 % (0.0-4.3); Hematocrit 48.4 % (35.5-45.6); Hemoglobin 16.3 gm/dl (11.8-15.2); Lymphocytes % (Auto) 29.9 % (13.4-35.0); Mean Corpuscular HGB Conc 34 % (32-34); Mean Corpuscular Volume 79 fl (84-94); Monocytes # (Auto) 0.6 K/mm3 (0.0-0.8); Platelet Count 271 K/mm3 (140-440); Red Cell Distribution Width 15.3 % (13.2-15.2)
[2020-08-02 10:08] LABS: BUN/Creatinine Ratio 11; Blood Urea Nitrogen 12 mg/dL (9-20); Calcium 9.4 mg/dL (8.4-10.2); Hemolysis Index 14
--- NOTE | 2020-08-02 12:01 | Consultation ---
History of Present Illness - Reason for Consult Consult date: 08/02/20 Reason for consult: SI/HI - History of Present Psychiatric Illness Per ED Note: The patient is a 30-year-old male present with a chief complaint of suicidal homicidal ideations. Patient has a history of schizophrenia and bipolar disorder states he has not been compliant with his psychiatric medication. Patient states he came to the emergency department for multiple reasons including suicidal homicidal ideation for "a while." Patient states has been emotionally labile, suffering from insomnia and has had auditory hallucinations. Patient states she has had thoughts of going to the highway to throw "rocks to see if anyone would crash is also had thoughts of walking into traffic. Patient denies any attempts at harming himself The patient was seen today, he is irritable and states "I can't stand that mother F." He's speaking of another patient. He says "He got too close to me and I had to move." The patient says he wants to hurt innocent people. He says "this place is the only place I knew to come to." He says he's hearing voices telling him to hurt himself and other people. The patient says he has a plan to hurt people, but states "I'm not going to tell you what it is." PAST PSYCHIATRIC HISTORY Diagnoses: Schizophrenia, bipolar Suicide attempts or Self-harm behavior: Denies Prior psychiatric hospitalizations: Yes Substance Abuse history: "weed, crack, alcohol" Previous psychiatric medications tried: been off, couldn't recall Outpatient treatment: Yes PAST MEDICAL HISTORY: None reported Family Psychiatric History: None reported or documented SOCIAL HISTORY Marital Status: Single Living Arrangements: with different people Employment Status: Unemployed Access to guns/weapons: Denies Education: high school History of Abuse: none reported Legal History: none REVIEW OF SYSTEMS Constitutional: Negative for weight loss ENT: Negative for stridor Respiratory: Negative for cough or hemoptysis All other systems reviewed and are negative MENTAL STATUS EXAMINATION General Appearance and Behavior: Age appropriate, not wearing appropriate clothes, fair eye contact, irritable, upset Cooperation: Engaged Psychomotor Behavior: Psychomotor normal Mood: "not good" Affect and affective range: Restricted, upset Thought Process: illogical Thought Content: Hallucinations, SI/HI Speech: Normal tone and pace Suicidal Ideation: Denies Homicidal Ideation: Denies Hallucinations: Auditory Delusions: None elicited Insight and Judgment: Poor insight and judgment Memory: Normal Attention: divided attention impaired Orientation: Alert, oriented x 4 Assessment: Schizophrenia Treatment Plan [address] 125mg po BID Risperidone 0.25mg po BID Trazodone 50mg po qhs Risks, benefits and alternatives of medications discussed with the patient, questions answered and consent obtained from patient. PSYCHOTHERAPY: Supportive psychotherapy provided MEDICAL: Per primary team DELIRIUM PRECAUTIONS: Please re-orient patient frequently, keep lights on during the day, and minimize benzodiazepines and opiates as these medications could worsen patient's confusion. CAREERS ADVISER: per primary DISPOSITION: Recommend acute inpatient psychiatric hospitalization at this time. FOLLOW-UP: will follow Thank you for the consult. Please contact with any questions and/or concerns. Case discussed with Dr. Singleton who agrees with current disposition Medications and Allergies Allergies Allergy/AdvReac Type Severity Reaction Status Date / Time No Known Allergies Allergy Verified 12/25/19 11:50 Home Medications Medication Instructions Recorded Confirmed Last Taken Type OLANZapine [Zyprexa] 15 mg PO DAILY 02/20/20 02/20/20 Unknown History Wellbutrin 150 mg PO DAILY 02/20/20 02/20/20 Unknown History traZODone [Desyrel] 50 mg PO QHS 02/20/20 02/20/20 Unknown History Divalproex ER [DepaKOTE ER] 250 mg PO TID #21 tablet 02/21/20 Unknown Rx Mental Status Exam - Vital signs Last Vital Signs Temp 97.8 F 08/02/20 09:59 Pulse 84 08/02/20 09:59 Resp 20 08/02/20 09:59 BP 100/68 08/02/20 09:59 Pulse Ox 99 08/02/20 09:59 Results Result Diagrams: 08/02/20 08:45 08/02/20 08:45 Abnormal lab results 08/02/20 08/02/20 08/02/20 Range/Units 08:45 08:45 08:45 RBC 6.10 H (3.65-5.03) M/mm3 Hgb 16.3 H (11.8-15.2) gm/dl Hct 48.4 H (35.5-45.6) % MCV 79 L (84-94) fl MCH 27 L (28-32) pg RDW 15.3 H (13.2-15.2) % [place] % (Auto) 9.0 H (0.0-7.3) % Salicylates < 0.3 L (2.8-20.0) mg/dL Acetaminophen 5.0 L (10.0-30.0) ug/mL Valproic Acid < 2.8 L (50-100) ug/mL All other labs normal.
[2020-08-02] MEDS ORDERED: ACETAMINOPHEN 500 MG TAB PO ONE (12:48)
[2020-08-02] MEDS: risperiDONE 0.25 MG TAB PO SCH ×2 (12:51→21:54)
[2020-08-02] MEDS: DIVALPROEX DR 125 MG TAB PO SCH ×2 (12:51→21:57)
[2020-08-02] MEDS ORDERED: traZODone 50 MG TAB PO SCH (22:00)
[2020-08-03 03:11] LABS: Bilirubin,Urine NEG (Negative); Blood,Urine NEG (Negative); Color,Urine Yellow (Yellow); Mucus,Urine 3+ /HPF; Urobilinogen,Urine < 2.0 mg/dL (<2.0)
[2020-08-03 03:16] LABS: Amphetamine Screen,Urine Negative; Benzodiazepines Screen,Urine Negative; Methadone Screen,Urine Negative; Opiate Screen,Urine Negative
[2020-08-03 03:45] LABS: Cannabinoid Screen,Urine Positive; Cocaine Screen,Urine Positive
--- NOTE | 2020-08-03 08:36 | Progress Note ---
Subjective - Reason for Consult Consult date: 08/03/20 Reason for consult: MHE Requesting physician: ALISSA CARRILLO - Chief Complaint Chief complaint: Psych Progress Patient seen this morning, patient stated that he does not know how he is doing today, endorses still hearing voices states he is having a little bit of suicidal ideations. Patient states that this is something inside of him and he thinks he needs a CT. REVIEW OF SYSTEMS Constitutional: Negative for weight loss ENT: Negative for stridor Respiratory: Negative for cough or hemoptysis All other systems reviewed and are negative MENTAL STATUS EXAMINATION General Appearance and Behavior: Age appropriate, not wearing appropriate clothes, fair eye contact, irritable, upset Cooperation: Engaged Psychomotor Behavior: Psychomotor normal Mood: "not good" Affect and affective range: Restricted, upset Thought Process: illogical Thought Content: Hallucinations, paranoia Speech: Normal tone and pace Suicidal Ideation: SI Homicidal Ideation: Denies Hallucinations: Auditory Delusions: None elicited Insight and Judgment: Poor insight and judgment Memory: Normal Attention: divided attention impaired Orientation: Alert, oriented x 4 Treatment Plan MEDICATIONS: continue current meds Risks, benefits and alternatives of medications discussed with the patient, questions answered and consent obtained from patient. PSYCHOTHERAPY: Supportive psychotherapy provided MEDICAL: Per primary team DELIRIUM PRECAUTIONS: Please re-orient patient frequently, keep lights on during the day, and minimize benzodiazepines and opiates as these medications could worsen patient's confusion. SENIOR SITE MANAGER: DISPOSITION: Do Recommend acute inpatient psychiatric hospitalization at this time. Case discussed with Dr. Singleton who agrees with current disposition LEGAL STATUS: 1013 FOLLOW-UP: Will follow Thank you for the consult. Please contact with any questions and/or concerns. Mental Status Exam - Vital signs Last Vital Signs Temp 98 F 08/03/20 08:18 Pulse 73 08/03/20 08:18 Resp 20 08/03/20 08:18 BP 124/78 08/03/20 08:18 Pulse Ox 100 08/03/20 08:18
[2020-08-03] MEDS: DIVALPROEX DR 125 MG TAB PO SCH (09:53)
[2020-08-03] MEDS: risperiDONE 0.25 MG TAB PO SCH (09:53)
[2020-08-03] MEDS ORDERED: ONDANSETRON 4 MG ODT TAB PO PRN (10:27)
[2020-08-03] MEDS ORDERED: LORazepam 2 MG/ML VIAL IM PRN (10:27)
[2020-08-03] MEDS ORDERED: ACETAMINOPHEN 325 MG TAB PO PRN (10:27)
[2020-08-03] MEDS ORDERED: diphenhydrAMINE 25 MG CAP PO PRN (10:27)
--- NOTE | 2020-08-03 11:01 | Event Note ---
Date: 08/03/20 The patient was evaluated in the emergency department for symptoms described in the history of present illness. He/she was evaluated in the context of the global COVID-19 pandemic, which necessitated consideration that the patient might be at risk for infection with the virus that causes COVID-19. Institutional protocols and algorithms that pertain to the evaluation of patients at risk for COVID-19 are in a state of rapid change based on information released by regulatory bodies including the CDC and federal and state organizations. These policies and algorithms were followed during the patient's care in the emergency department. Please note that these policies, procedures and recommendations changed on a rapid basis. Patient resting comfortably in room/chair, in no acute distress. 1013 form is filled out at the recommendation of the psychiatry team. Nursing team endorses that patient has not complained of anything medically, vital signs are unremarkable, and he ate breakfast without difficulty. Laboratory studies, vital signs, prior documentation reviewed and appreciated, patient remains medically suitable at this time for psychiatric placement, no emergent medical condition appears to be present at this time. Vital Signs 08/02/20 08/02/20 08/03/20 09:59 19:45 02:51 Temperature 97.8 F 98.3 F 98.4 F Pulse Rate 84 59 L 62 Respiratory 20 19 16 Rate Blood Pressure 100/68 120/77 109/75 [Left] O2 Sat by Pulse 99 100 100 Oximetry 08/03/20 08:18 Temperature 98 F Pulse Rate 73 Respiratory 20 Rate Blood Pressure 124/78 [Left] O2 Sat by Pulse 100 Oximetry Lab Results 08/02/20 08/02/20 08/02/20 Range/Units 08:45 08:45 08:45 WBC 6.7 (4.5-11.0) K/mm3 RBC 6.10 H (3.65-5.03) M/mm3 Hgb 16.3 H (11.8-15.2) gm/dl Hct 48.4 H (35.5-45.6) % MCV 79 L (84-94) fl MCH 27 L (28-32) pg MCHC 34 (32-34) % RDW 15.3 H (13.2-15.2) % Plt Count 271 (140-440) K/mm3 Lymph % (Auto) 29.9 (13.4-35.0) % Gregory % (Auto) 9.0 H (0.0-7.3) % Eos % (Auto) 0.5 (0.0-4.3) % Baso % (Auto) Rn Psych Lymph # (Auto) 2.0 (1.2-5.4) K/mm3 Gregory # (Auto) 0.6 (0.0-0.8) K/mm3 Eos # (Auto) 0.0 (0.0-0.4) K/mm3 Baso # (Auto) 0.0 (0.0-0.1) K/mm3 Seg Neutrophils % 60.2 (40.0-70.0) % Seg Neutrophils # 4.0 (1.8-7.7) K/mm3 Sodium 140 (137-145) mmol/L Potassium 4.2 (3.6-5.0) mmol/L Chloride 100.9 (98-107) mmol/L Carbon Dioxide 24 (22-30) mmol/L Anion Gap 19 mmol/L BUN 12 (9-20) mg/dL Creatinine 1.1 (0.8-1.3) mg/dL Estimated GFR > 60 ml/min BUN/Creatinine Ratio 11 % Glucose 79 (75-100) mg/dL Calcium 9.4 (8.4-10.2) mg/dL Urine Color (Yellow) Urine Turbidity (Clear) Urine pH (5.0-7.0) Ur Specific [place] (1.003-1.030) Urine Protein (Negative) mg/dL Urine Glucose (UA) (Negative) mg/dL Urine Ketones (Negative) mg/dL Urine Blood (Negative) Urine Nitrite (Negative) Urine Bilirubin (Negative) Urine Urobilinogen (<2.0) mg/dL Ur Leukocyte Esterase (Negative) Urine WBC (Auto) (0.0-6.0) /HPF Urine RBC (Auto) (0.0-6.0) /HPF Urine Mucus /HPF Salicylates < 0.3 L (2.8-20.0) mg/dL Urine Opiates Screen Urine Methadone Screen Acetaminophen (10.0-30.0) ug/mL Ur Barbiturates Screen Valproic Acid < 2.8 L (50-100) ug/mL Ur Phencyclidine Scrn Ur Amphetamines Screen U Benzodiazepines Scrn Urine Cocaine Screen U Marijuana (THC) Screen Drugs of Abuse Note Plasma/Serum Alcohol (0-0.07) % Coronavirus (PCR) (Negative) 08/02/20 08/02/20 08/02/20 Range/Units 08:45 08:45 Unknown WBC (4.5-11.0) K/mm3 RBC (3.65-5.03) M/mm3 Hgb (11.8-15.2) gm/dl Hct (35.5-45.6) % MCV (84-94) fl MCH (28-32) pg MCHC (32-34) % RDW (13.2-15.2) % Plt Count (140-440) K/mm3 Lymph % (Auto) (13.4-35.0) % Gregory % (Auto) (0.0-7.3) % Eos % (Auto) (0.0-4.3) % Baso % (Auto) Lymph # (Auto) (1.2-5.4) K/mm3 Gregory # (Auto) (0.0-0.8) K/mm3 Eos # (Auto) (0.0-0.4) K/mm3 Baso # (Auto) (0.0-0.1) K/mm3 Seg Neutrophils % (40.0-70.0) % Seg Neutrophils # (1.8-7.7) K/mm3 Sodium (137-145) mmol/L Potassium (3.6-5.0) mmol/L Chloride (98-107) mmol/L Carbon Dioxide (22-30) mmol/L Anion Gap mmol/L BUN (9-20) mg/dL Creatinine (0.8-1.3) mg/dL Estimated GFR ml/min BUN/Creatinine Ratio % Glucose (75-100) mg/dL Calcium (8.4-10.2) mg/dL Urine Color (Yellow) Urine Turbidity (Clear) Urine pH (5.0-7.0) Ur Specific [place] (1.003-1.030) Urine Protein (Negative) mg/dL Urine Glucose (UA) (Negative) mg/dL Urine Ketones (Negative) mg/dL Urine Blood (Negative) Urine Nitrite (Negative) Urine Bilirubin (Negative) Urine Urobilinogen (<2.0) mg/dL Ur Leukocyte Esterase (Negative) Urine WBC (Auto) (0.0-6.0) /HPF Urine RBC (Auto) (0.0-6.0) /HPF Urine Mucus /HPF Salicylates (2.8-20.0) mg/dL Urine Opiates Screen Urine Methadone Screen Acetaminophen 5.0 L (10.0-30.0) ug/mL Ur Barbiturates Screen Valproic Acid (50-100) ug/mL Ur Phencyclidine Scrn Ur Amphetamines Screen U Benzodiazepines Scrn Urine Cocaine Screen U Marijuana (THC) Screen Drugs of Abuse Note Plasma/Serum Alcohol < 0.01 (0-0.07) % Coronavirus (PCR) Negative (Negative) 08/03/20 08/03/20 Range/Units Unknown Unknown WBC (4.5-11.0) K/mm3 RBC (3.65-5.03) M/mm3 Hgb (11.8-15.2) gm/dl Hct (35.5-45.6) % MCV (84-94) fl MCH (28-32) pg MCHC (32-34) % RDW (13.2-15.2) % Plt Count (140-440) K/mm3 Lymph % (Auto) (13.4-35.0) % Gregory % (Auto) (0.0-7.3) % Eos % (Auto) (0.0-4.3) % Baso % (Auto) Lymph # (Auto) (1.2-5.4) K/mm3 Gregory # (Auto) (0.0-0.8) K/mm3 Eos # (Auto) (0.0-0.4) K/mm3 Baso # (Auto) (0.0-0.1) K/mm3 Seg Neutrophils % (40.0-70.0) % Seg Neutrophils # (1.8-7.7) K/mm3 Sodium (137-145) mmol/L Potassium (3.6-5.0) mmol/L Chloride (98-107) mmol/L Carbon Dioxide (22-30) mmol/L Anion Gap mmol/L BUN (9-20) mg/dL Creatinine (0.8-1.3) mg/dL Estimated GFR ml/min BUN/Creatinine Ratio % Glucose (75-100) mg/dL Calcium (8.4-10.2) mg/dL Urine Color Yellow (Yellow) Urine Turbidity Clear (Clear) Urine pH 6.0 (5.0-7.0) Ur Specific [place] 1.029 (1.003-1.030) Urine Protein 30 mg/dl (Negative) mg/dL Urine Glucose (UA) Neg (Negative) mg/dL Urine Ketones Tr (Negative) mg/dL Urine Blood Neg (Negative) Urine Nitrite Neg (Negative) Urine Bilirubin Neg (Negative) Urine Urobilinogen < 2.0 (<2.0) mg/dL Ur Leukocyte Esterase Neg (Negative) Urine WBC (Auto) 1.0 (0.0-6.0) /HPF Urine RBC (Auto) 1.0 (0.0-6.0) /HPF Urine Mucus 3+ /HPF Salicylates (2.8-20.0) mg/dL Urine Opiates Screen Negative Urine Methadone Screen Negative Acetaminophen (10.0-30.0) ug/mL Ur Barbiturates Screen Negative Valproic Acid (50-100) ug/mL Ur Phencyclidine Scrn Negative Ur Amphetamines Screen Negative U Benzodiazepines Scrn Negative Urine Cocaine Screen Positive U Marijuana (THC) Screen Positive Drugs of Abuse Note Disclamer Plasma/Serum Alcohol (0-0.07) % Coronavirus (PCR) (Negative)
[2020-08-03 20:21] VITALS: BP 111/78
== END 2020-08-03 21:00 ==
LOC: ED 07:33
DX: R45.851 Suicidal ideations (principal); Z20.822 Contact with and (suspected) exposure to COVID-19; R45.850 Homicidal ideations; F20.9 Schizophrenia, unspecified; G43.909 Migraine, unspecified, not intractable, without status migrainosus; F17.200 Nicotine dependence, unspecified, uncomplicated; F12.10 Cannabis abuse, uncomplicated; Z79.899 Other long term (current) drug therapy
CPT/HCPCS: 36415; 80048; 80164; 80307; 81001; 85025; 99285; U0003; 80320; G0480

== ENCOUNTER 2020-10-06 07:44 | Emergency (ER) | payer SELFPAY ==
[2020-10-06 08:06] VITALS: BP 111/63
[2020-10-06 08:59] LABS: Basophils % (Auto) 0.1 % (0.0-1.8); Hematocrit 40.7 % (35.5-45.6); Hemoglobin 13.6 gm/dl (11.8-15.2); Lymphocytes % (Auto) 13.7 % (13.4-35.0); Mean Corpuscular HGB Conc 34 % (32-34); Mean Corpuscular Volume 80 fl (84-94); Monocytes # (Auto) 0.7 K/mm3 (0.0-0.8); Monocytes % (Auto) 9.4 % (0.0-7.3); Platelet Count 237 K/mm3 (140-440); Red Cell Distribution Width 15.1 % (13.2-15.2)
[2020-10-06 09:21] LABS: BUN/Creatinine Ratio 14; Blood Urea Nitrogen 11 mg/dL (9-20); Calcium 9.3 mg/dL (8.4-10.2); Hemolysis Index 3
[2020-10-06] MEDS ORDERED: CYCLOBENZAPRINE 10 MG TAB PO PRN (10:10)
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
== END 2020-10-06 15:45 | disposition home or self-care (01) ==
LOC: ED 07:44
DX: F20.9 Schizophrenia, unspecified (principal); R45.851 Suicidal ideations; G43.909 Migraine, unspecified, not intractable, without status migrainosus; F31.9 Bipolar disorder, unspecified; F17.200 Nicotine dependence, unspecified, uncomplicated; F14.10 Cocaine abuse, uncomplicated; F12.10 Cannabis abuse, uncomplicated
CPT/HCPCS: 36415; 80048; 80320; 84132; 85025; 99284; G0480

== ENCOUNTER 2020-10-07 04:11 | Emergency (ER) | payer SELFPAY ==
[2020-10-07 07:00] VITALS: BP 119/64
== END 2020-10-07 07:30 | disposition left against medical advice (07) ==
LOC: ED 04:11
DX: Z00.8 Encounter for other general examination (principal); Z53.21 Procedure and treatment not carried out due to patient leaving prior to being seen by health care provider

== ENCOUNTER 2020-10-08 03:25 | Emergency (ER) | payer OTHER, SELFPAY ==
--- NOTE | 2020-10-08 04:57 | Emergency Department Report ---
ED Psych HPI - General Chief Complaint: Psych Stated Complaint: MH Time Seen by Provider: 10/08/20 04:47 Source: patient Mode of arrival: Ambulatory - History of Present Illness Initial Comments: Patient is 30 years old male with history of schizophrenia. Patient brought to the emergency room for mental health evaluation. Patient stated that he is hearing voices asking him to do strange things. He stated that they asked him to come to the ER and he also mentioned that they asked him to run into traffic. Patient stated that the voices asking him to jacqui an old lady. Patient was seen here 2 days ago for similar complaint. MD Complaint: suicidal ideation -: Gradual Associated Psychiatric Symptoms: homicidal ideation, racing thoughts, auditory hallucinations, visual hallucinations Associated Symptoms: denies other symptoms If Self Harm: admits thoughts of, has plan, self-inflicted trauma - Related Data Home Medications Medication Instructions Recorded Confirmed Last Taken OLANZapine [Zyprexa] 15 mg PO DAILY 02/20/20 02/20/20 Unknown Wellbutrin 150 mg PO DAILY 02/20/20 02/20/20 Unknown traZODone [Desyrel] 50 mg PO QHS 02/20/20 02/20/20 Unknown Previous Rx's Medication Instructions Recorded Last Taken Type Divalproex ER [DepaKOTE ER] 250 mg PO TID #21 tablet 02/21/20 Unknown Rx Allergies Allergy/AdvReac Type Severity Reaction Status Date / Time No Known Allergies Allergy Verified 12/25/19 11:50 ED Review of Systems ROS: Stated complaint: MH Other details as noted in HPI Comment: All other systems reviewed and negative Constitutional: denies: chills, fever Respiratory: denies: cough, shortness of breath, SOB with exertion, SOB at rest Cardiovascular: denies: chest pain Gastrointestinal: denies: abdominal pain, nausea, vomiting Musculoskeletal: denies: back pain Neurological: denies: headache, weakness, numbness ED Past Medical Hx - Past Medical History Previous Medical History?: Yes Hx Headaches / Migraines: Yes Hx Psychiatric Treatment: Yes (Bi polar, schizophrenia) Additional medical history: anemia - Surgical History Past Surgical History?: No - Social History Smoking Status: Current Some Day Smoker Substance Use Type: Alcohol, Heroin, Marijuana - Medications Home Medications: Home Medications Medication Instructions Recorded Confirmed Last Taken Type OLANZapine [Zyprexa] 15 mg PO DAILY 02/20/20 02/20/20 Unknown History Wellbutrin 150 mg PO DAILY 02/20/20 02/20/20 Unknown History traZODone [Desyrel] 50 mg PO QHS 02/20/20 02/20/20 Unknown History Divalproex ER [DepaKOTE ER] 250 mg PO TID #21 tablet 02/21/20 Unknown Rx ED Physical Exam - General Limitations: No Limitations General appearance: alert, in no apparent distress - Head Head exam: Present: atraumatic, normocephalic, normal inspection - Eye Eye exam: Present: normal appearance, PERRL - ENT ENT exam: Present: normal exam, normal orophraynx, mucous membranes moist - Neck Neck exam: Present: normal inspection, full ROM. Absent: tenderness, meningismus - Respiratory Respiratory exam: Present: normal lung sounds bilaterally - Cardiovascular Cardiovascular Exam: Present: regular rate, normal rhythm, normal heart sounds - GI/Abdominal GI/Abdominal exam: Present: soft, normal bowel sounds. Absent: distended, tenderness, guarding, rebound, rigid, organomegaly, mass, bruit, pulsatile mass, hernia - Back Exam Back exam: Present: normal inspection, full ROM. Absent: CVA tenderness (R), CVA tenderness (L) - Neurological Exam Neurological exam: Present: alert, oriented X3, CN II-XII intact, normal gait, reflexes normal. Absent: motor sensory deficit - Psychiatric Psychiatric exam: Present: normal mood, suicidal ideation. Absent: homicidal ideation - Skin Skin exam: Present: warm, intact, normal color ED Course Vital Signs 10/08/20 10/08/20 04:04 08:10 Temperature 98.6 F 98.6 F Pulse Rate 77 72 Respiratory 18 18 Rate Blood Pressure 133/70 128/68 [Right] O2 Sat by Pulse 99 99 Oximetry ED Medical Decision Making - Lab Data Result diagrams: 10/08/20 04:16 10/08/20 04:16 Critical care attestation.: If time is entered above; I have spent that time in minutes in the direct care of this critically ill patient, excluding procedure time. ED Disposition Clinical Impression: Substance use disorder, Mood disorder Disposition: DC-01 TO HOME OR SELFCARE Is pt being admited?: No Condition: Stable Additional Instructions: Professional and Agency Contacts To help Resolve Crises(29/09) [place] Crisis Line: Suicide Prevention Line: Crisis Text Line: Text START to 666465 Emergency: 911 Outpatient [facility] Behavioral Health Resources: EDWAR: [facility] [address] [place], [place] [address] EMIL: [facility] [address] [place] [address] ASHLEY: [facility] - [address] [place] [address] Thursday thru Thursday - 8am - 5pm LOTUS: [facility] Service Address: [address] [place] [address] GARNER: [facility] Address: [address] [place] [address] Thursday thru Thursday- 7am-2pm [facility] Address: [address] [place] [address] Thursday thru Thursday: 8:30AM-5PM In case of an emergency, please contact the following numbers: [place] Crisis and Access Line: Number: Crisis Text Line: (Text START) Number: 274604 Suicide Prevention Line: Number: Emergency Number: 911 SUBSTANCE ABUSE PROGRAMS: [facility]: Location: [place], [place] [employer] Address: [address] [place] [address] [facility] Recovery: Address: [address] [facility] [place] [address] [facility]: Address: [address] [place] [address] [facility] Community: Address: [address] [place] [address] [facility] Address: [address] [place] [address]. Please contact above numbers to attempt placement into free based program. Medicaid Programs: [facility]: Address: [address] [facility], [place] [address] [facility]: Address: [address] [place] [address] OUTPATIENT MENTAL HEALTH RESOURCES [facility], [address] [place] [address] [facility] Keven Amezquita MD: [address] [facility] Carlos [address] [place] [address] [facility]: [address] [place] [address] [place] [address] [phone] [facility]: [address] [facility] [address] [place], [place] [id number] [facility]: [address] [facility] [address]. [address] [facility] [id number] [facility]: [address] [place] [address] Referrals: PRIMARY CAREMD [Primary Care Provider] - 3-5 Days
[2020-10-08 05:05] LABS: Basophils % (Auto) 0.4 % (0.0-1.8); Eosinophils % (Auto) 0.6 % (0.0-4.3); Hematocrit 41.1 % (35.5-45.6); Hemoglobin 13.5 gm/dl (11.8-15.2); Lymphocytes # (Auto) 2.3 K/mm3 (1.2-5.4); Lymphocytes % (Auto) 36.6 % (13.4-35.0); Mean Corpuscular HGB Conc 33 % (32-34); Mean Corpuscular Volume 81 fl (84-94); Monocytes # (Auto) 0.9 K/mm3 (0.0-0.8); Platelet Count 207 K/mm3 (140-440); Red Blood Count 5.08 M/mm3 (3.65-5.03); Red Cell Distribution Width 15.1 % (13.2-15.2)
[2020-10-08 05:12] LABS: BUN/Creatinine Ratio 11; Blood Urea Nitrogen 10 mg/dL (9-20); Calcium 9.4 mg/dL (8.4-10.2); Hemolysis Index 4
[2020-10-08 06:20] LABS: Alanine Aminotransferase 30 units/L (7-56); Albumin 4.6 g/dL (3.9-5)
[2020-10-08 06:21] LABS: Bilirubin,Direct < 0.2 mg/dL (0-0.2)
[2020-10-08 08:43] LABS: Bilirubin,Urine NEG (Negative); Blood,Urine NEG (Negative); Color,Urine Straw (Yellow); Protein,Urine <15 mg/dL mg/dL (Negative); RBC,Urine < 1.0 /HPF (0.0-6.0); Urobilinogen,Urine < 2.0 mg/dL (<2.0); WBC,Urine < 1.0 /HPF (0.0-6.0)
[2020-10-08 08:51] LABS: Amphetamine Screen,Urine Negative; Benzodiazepines Screen,Urine Negative; Methadone Screen,Urine Negative; Opiate Screen,Urine Negative
[2020-10-08 09:38] LABS: Cannabinoid Screen,Urine PRESUMPTIVE POSITIVE; Cocaine Screen,Urine PRESUMPTIVE POSITIVE
--- NOTE | 2020-10-08 10:08 | Consultation ---
History of Present Illness - Reason for Consult Consult date: 10/08/20 Reason for consult: hallucinations - History of Present Psychiatric Illness Per ER Note: Patient is 30 years old male with history of schizophrenia. Patient brought to the emergency room for mental health evaluation. Patient stated that he is hearing voices asking him to do strange things. He stated that they asked him to come to the ER and he also mentioned that they asked him to run into traffic. Patient stated that the voices asking him to jacqui an old lady. Patient was seen here 2 days ago for similar complaint. The patient is a 30y/o male patient who was seen by me a couple of days ago for hallucinations in which at that time he stated he had been hearing them for abou t 2 years. During my evaluation with the patient he is lying down asleep. He arouses easily. The patient states he came to the ER for "pain and voices." The patient says "the voices got me laughing all day, being angry and gives me a headache." I asked the patient has he spoken with his outpatient doctor to adjust or makes changes in his medications, the patient states "no, I don't have a doctor. I don't need an outpatient doctor. I need to see inpatient doctors." The patient denies the voices being worse in nature today than the other day. The patient denies illicit drug use. He states "I've been off the drugs. They are not my problem any way. They make me feel better." When asking the patient if the voices were telling him to hurt people, he replies "they make me do all kinds of stuff life laugh, and get mad. They are funny." PAST PSYCHIATRIC HISTORY Diagnoses: Schizophrenia, bipolar Suicide attempts or Self-harm behavior: Denies Prior psychiatric hospitalizations: Yes Substance Abuse history: weed, crack, alcohol Previous psychiatric medications tried: risperidone, depakote, wellbutrin, trazodone Outpatient treatment: Yes PAST MEDICAL HISTORY: None reported Family Psychiatric History: None reported or documented SOCIAL HISTORY Marital Status: Single Living Arrangements: with different people Employment Status: Unemployed Access to guns/weapons: Denies Education: high school History of Abuse: none reported Legal History: none REVIEW OF SYSTEMS Constitutional: Negative for weight loss ENT: Negative for stridor Respiratory: Negative for cough or hemoptysis All other systems reviewed and are negative MENTAL STATUS EXAMINATION General Appearance and Behavior: Age appropriate, not wearing appropriate clothes, fair eye contact, irritable Cooperation: Engaged Psychomotor Behavior: Psychomotor normal Mood: "tired" Affect and affective range: Restricted Thought Process: goal directed Thought Content: Hallucinations Speech: Normal tone and pace Suicidal Ideation: denies Homicidal Ideation: Denies Hallucinations: Auditory for years Delusions: None elicited Insight and Judgment: Limited insight and judgment Memory: Normal Attention: divided attention impaired Orientation: Alert, oriented x 4 Assessment: Polysubstance abuse with substance Induced Mood Disorder Treatment Plan Continue home medications. Risks, benefits and alternatives of medications discussed with the patient, questions answered and consent obtained from patient. PSYCHOTHERAPY: Supportive psychotherapy provided MEDICAL: Per primary team DELIRIUM PRECAUTIONS: Please re-orient patient frequently, keep lights on during the day, and minimize benzodiazepines and opiates as these medications could worsen patient's confusion. FINE CRAFT ARTIST: per primary DISPOSITION: Do not recommend acute psychiatric treatment. The patient understands that if SI/HI are to return he is to seek immediate assistance. Journalism Teacher please give outpatient resources; med management with assistance, drug and alcohol rehab, CBT, transportation pass The patient is to abstain from all illicit drug use, and alcohol He is to follow up with outpatient psych in 7 to 14 days upon discharge. Will sign off. Thanks Thank you for the consult. Please contact with any questions and/or concerns. Case discussed with Dr. Singleton who agrees with current disposition Medications and Allergies Allergies Allergy/AdvReac Type Severity Reaction Status Date / Time No Known Allergies Allergy Verified 12/25/19 11:50 Home Medications Medication Instructions Recorded Confirmed Last Taken Type OLANZapine [Zyprexa] 15 mg PO DAILY 02/20/20 02/20/20 Unknown History Wellbutrin 150 mg PO DAILY 02/20/20 02/20/20 Unknown History traZODone [Desyrel] 50 mg PO QHS 02/20/20 02/20/20 Unknown History Divalproex ER [DepaKOTE ER] 250 mg PO TID #21 tablet 02/21/20 Unknown Rx Mental Status Exam - Vital signs Last Vital Signs Temp 98.6 F 10/08/20 04:04 Pulse 77 10/08/20 04:04 Resp 18 10/08/20 04:04 BP 133/70 10/08/20 04:04 Pulse Ox 98 10/08/20 08:10 Results Result Diagrams: 10/08/20 04:16 10/08/20 04:16 Abnormal lab results 10/08/20 10/08/20 10/08/20 Range/Units 04:16 04:16 04:16 RBC 5.08 H (3.65-5.03) M/mm3 MCV 81 L (84-94) fl MCH 27 L (28-32) pg Lymph % (Auto) 36.6 H (13.4-35.0) % Kemper % (Auto) 15.0 H (0.0-7.3) % Kemper # (Auto) 0.9 H (0.0-0.8) K/mm3 AST (5-40) units/L Urine pH (5.0-7.0) Salicylates < 0.3 L (2.8-20.0) mg/dL Acetaminophen 5.0 L (10.0-30.0) ug/mL 10/08/20 10/08/20 Range/Units 04:16 08:10 RBC (3.65-5.03) M/mm3 MCV (84-94) fl MCH (28-32) pg Lymph % (Auto) (13.4-35.0) % Kemper % (Auto) (0.0-7.3) % Kemper # (Auto) (0.0-0.8) K/mm3 AST 70 H (5-40) units/L Urine pH 9.0 H (5.0-7.0) Salicylates (2.8-20.0) mg/dL Acetaminophen (10.0-30.0) ug/mL All other labs normal.
--- NOTE | 2020-10-08 10:48 | Event Note ---
Date: 10/08/20 Patient seen, evaluated, and cleared by psychiatry team. Patient will be provided with outpatient resources for follow-up. I spoke with patient and he denies any suicidal ideation. States he does not really want to jacqui anyone of their hard earned money. Will discharge at this time. Return precautions given.
[2020-10-08 14:22] VITALS: BP 128/68
== END 2020-10-08 12:45 | disposition home or self-care (01) ==
LOC: ED 03:25
DX: F39 Unspecified mood [affective] disorder (principal); F19.90 Other psychoactive substance use, unspecified, uncomplicated; F25.0 Schizoaffective disorder, bipolar type; G43.909 Migraine, unspecified, not intractable, without status migrainosus; F17.200 Nicotine dependence, unspecified, uncomplicated; F12.90 Cannabis use, unspecified, uncomplicated; D64.9 Anemia, unspecified; F11.90 Opioid use, unspecified, uncomplicated; Z20.822 Contact with and (suspected) exposure to COVID-19; Z79.899 Other long term (current) drug therapy
CPT/HCPCS: 36415; 80048; 80076; 80307; 81001; 85025; 99284; U0003; 80320; G0480

== ENCOUNTER 2021-04-02 20:05 | Emergency (ER) | payer SELFPAY ==
[2021-04-02 22:35] VITALS: BP 110/68
[2021-04-02 23:24] LABS: Basophils % (Auto) 0.3 % (0.0-1.8); Eosinophils % (Auto) 0.2 % (0.0-4.3); Lymphocytes # (Auto) 1.7 K/mm3 (1.2-5.4); Lymphocytes % (Auto) 21.2 % (13.4-35.0); Mean Corpuscular HGB Conc 31 % (32-34); Mean Corpuscular Volume 81 fl (84-94); Monocytes # (Auto) 0.6 K/mm3 (0.0-0.8); Platelet Count 281 K/mm3 (140-440); Red Blood Count 5.25 M/mm3 (3.65-5.03); Red Cell Distribution Width 15.2 % (13.2-15.2)
[2021-04-02 23:26] LABS: BUN/Creatinine Ratio 18; Blood Urea Nitrogen 14 mg/dL (9-20); Calcium 9.2 mg/dL (8.4-10.2); Hemolysis Index 21
--- NOTE | 2021-04-02 23:31 | Emergency Department Report ---
HPI - General Chief Complaint: Psych Time Seen by Provider: 04/02/21 23:12 - HPI HPI: 31-year-old male with history of bipolar disorder/schizoaffective disorder and polysubstance use disorder presents with multiple complaints. He has pressured speech and reports that he is homeless and has been off of all of his medications for a while including his psychiatric medications. He reports feeling extremely paranoid and says that he is being followed. He says that gang members are pretending to be psych patient's so that they can watch him and try to kidnap him. He also reports that he wants to end his life and has a plan to walk in front of traffic. He says he has command auditory hallucinations telling him to end his life. He denies homicidal ideation. He denies visual hallucinations. At the end of the interview only when prompted that he mentioned that he also has a headache. Denies any recent trauma. He denies any other physical symptoms or complaints. He says he smoked marijuana today but denies any other substance use. ED Past Medical Hx - Past Medical History Previous Medical History?: Yes Hx Headaches / Migraines: Yes Hx Psychiatric Treatment: Yes (Bi polar, schizophrenia) Additional medical history: anemia - Social History Smoking Status: Current Some Day Smoker Substance Use Type: Alcohol, Heroin, Marijuana - Medications Home Medications: Home Medications Medication Instructions Recorded Confirmed Last Taken Type OLANZapine [Zyprexa] 15 mg PO DAILY 02/20/20 02/20/20 Unknown History Wellbutrin 150 mg PO DAILY 02/20/20 02/20/20 Unknown History traZODone [Desyrel] 50 mg PO QHS 02/20/20 02/20/20 Unknown History Divalproex ER [DepaKOTE ER] 250 mg PO TID #21 tablet 02/21/20 Unknown Rx ED Review of Systems ROS: Stated complaint: PAIN/HEARING VOICES Other details as noted in HPI Comment: All other systems reviewed and negative Constitutional: denies: chills, fever Eyes: denies: eye pain, vision change ENT: denies: throat pain, congestion Respiratory: denies: cough, shortness of breath Cardiovascular: denies: chest pain, palpitations Gastrointestinal: denies: abdominal pain, nausea, vomiting Genitourinary: denies: dysuria, frequency Musculoskeletal: denies: joint swelling, arthralgia Skin: denies: rash, lesions Neurological: headache. denies: weakness, numbness, paresthesias Psychiatric: anxiety, depression, auditory hallucinations, suicidal thoughts. denies: visual hallucinations, homicidal thoughts Physical Exam - Physical Exam Vital Signs: Vital Signs 04/02/21 22:34 Temperature 98.6 F Pulse Rate 60 Respiratory 20 Rate Blood Pressure 110/68 [Right] O2 Sat by Pulse 100 Oximetry Physical Exam: GENERAL: Well developed and well nourished. Disheveled. Not in acute distress. HEAD: Normocephalic. No obvious signs of trauma. ENT: Moist mucous membranes. EYES: Extraocular movements are intact. Pupils are equal round and reactive to light bilaterally NECK: Supple. Full ROM is intact. Trachea is midline. LUNGS: Nonlabored breathing. Equal chest rise bilaterally. Clear to auscultation bilaterally. CARDIOVASCULAR: Regular rate and rhythm. No murmurs or rubs. VASCULAR: Cap refill < 2 seconds ABDOMEN: Abdomen is soft and nondistended. There is no significant tenderness, guarding or rebound. SKIN: Skin is warm and dry NEURO: Patient is awake, alert, and oriented. Pressured speech. retail field merchandiser II-XII grossly intact. No focal deficits. Normal motor and sensory exam throughout. Normal speech. MUSCULOSKELETAL: No obvious deformities. No significant tenderness. Normal ROM t hroughout. BACK/SPINE: No midline tenderness or step-offs of the C/T/L spine. No costovertebral angle tenderness. ED Course Vital Signs 04/02/21 22:34 Temperature 98.6 F Pulse Rate 60 Respiratory 20 Rate Blood Pressure 110/68 [Right] O2 Sat by Pulse 100 Oximetry ED Medical Decision Making - Lab Data Result diagrams: 04/02/21 22:53 04/02/21 22:53 - Medical Decision Making 31-year-old male with history of bipolar disorder/schizoaffective disorder off his medications presents with suicidal ideation with the plan to walk in front of traffic as well as acute psychosis with paranoid delusions. He is afebrile and with normal vital signs. He has a nonfocal neurologic exam. He is noted to have pressured speech which is circumferential and tangential. 1013 order has been signed and initiated. We will send full set of medical clearance labs. We will give ibuprofen for the patient's headache. Labs have resulted and reveal no significant leukocytosis or anemia. Creatinine is within normal range and there are no significant electrolyte abnormalities. Urinalysis/UDS is still pending but the patient is medically cleared for psychiatric evaluation placement. Patient was seen by the mental health/psychiatry team who recommended discontinuing the 1013 order and discharging with outpatient follow-up. Critical care attestation.: If time is entered above; I have spent that time in minutes in the direct care of this critically ill patient, excluding procedure time. ED Disposition Clinical Impression: Suicidal thoughts Disposition: HOME / SELF CARE / HOMELESS Is pt being admited?: No Condition: Stable Instructions: Persistent Depressive Disorder, Adult, Suicidal Feelings: How to Help Yourself Additional Instructions: Drink plenty water. Follow-up as directed by behavioral health. Return for problems or concerns. Also follow-up with your primary care physician. Professional and Agency Contacts To help Resolve Crises(29/09) [place] Crisis Line: Suicide Prevention Line: Crisis Text Line: Text START to 559382 Emergency: 911 Outpatient [facility] Behavioral Health Resources: EDWAR: [facility] [address] [place], [place] [address] [facility] [address] [place] [address] [facility] - [address] [place] [address] Thursday thru Thursday - 8am - 5pm [facility] Service Address: [address] [place] [address] G[facility] Address: [address] [place] [address] Thursday thru Thursday- 7am-2pm [facility] Address: [address] [place] [address] Thursday thru Thursday: 8:30AM-5PM OUTPATIENT MENTAL HEALTH RESOURCES [facility], [address] [place] [address] [facility] Keven Amezquita MD: [address] [place] [address] [facility]: [address] [place] [address] [place] [address] [phone] [facility]: [address] [facility] [address] [place] [address] [phone] [facility]: [address] [facility] [address] [facility] [address] [facility]: [address] [place], [place] Quinten Lu MD: [address] [facility] [address] [facility]: [address] [facility] [place], [place] [address] [phone] IN CRISIS AND ACCESS LINE: * Transitional [facility] Providers: Ezra Rebollar [phone] Address: [address] [place] [address] [place] [address] Mr. Francis: [phone] Harjeet Ortiz [phone] Ms. Holt: [phone] Dorcas Zarate [phone] Ms. Bledsoe [phone] [facility] [phone] Ms. Clark: [phone] [facility] [phone] [facility] Home: [facility] [phone] HOMELESS RESOURCES: [facility] NEED HELP? If you are in need of help or know someone who does, please contact us at [email or web address] or call [phone], or come to our offices at [address] [place], [place] [id number], Thursday-Thursday beginning at 8AM. [facility] Males only Admission at 7am Mon to Fri Address: [address] [place] [address] [facility] [phone] Regular program admission occurs Thursday through Thursday at 7:00 am and operates on a first come, first serve basis. Because we cant anticipate program availability in advance and program spots are in high demand, we recommend arriving early. Space fills up fast! Next steps can include: Assignment to a [facility] program bed Connection to and placement in a partner program, or Referral to a partner agency [facility] Admission at 4:30pm daily Address: [address] [place] [address] [facility] Services Admission from 8am to 10am Daily No intake until 03/05/20 Address: [place] [address] [facility] goal is to take chronically homeless men and help them overcome their barriers, change them as human beings, making them productive and self- sufficient individuals. Each [facility] participant is housed at our facility for up to a year while they participate in transitional work (earning $7.40/hr for 30+ hours per week). All participants renounce dependency and remain drug and alcohol free. Personal support, case management, and workforce training is offered throughout the program. We also provide AA/NA Classes, GED classes, support in obtaining a airport shuttle driver's licenses, help setting up a bank account, and life skill preparation courses. IF A MAN IS COMMITTED TO BEING CLEAN, TO ADDRESSING THE PAST, AND TO WORKING, WE WILL HELP HIM GET A FUR STYLIST JOB, TRANSPORTATION AND PERMANENT HOUSING WITHIN A YEAR. [facility] [address] [place] [id number] [email or web address] Referrals: FARHAT MALDONADO MD [Primary Care Provider] - 3-5 Days
[2021-04-02] MEDS ORDERED: IBUPROFEN 600 MG TAB PO ONE (23:35)
[2021-04-02 23:45] LABS: Hematocrit 42.6 % (35.5-45.6); Hemoglobin 13.1 gm/dl (11.8-15.2)
[2021-04-03] MEDS ORDERED: IBUPROFEN 600 MG TAB PO ONE (01:47)
--- NOTE | 2021-04-03 11:37 | Consultation ---
History of Present Illness - Reason for Consult Consult date: 04/03/21 Reason for consult: suicidal ideation - History of Present Psychiatric Illness ED Note: 31-year-old male with history of bipolar disorder/schizoaffective disorder and polysubstance use disorder presents with multiple complaints. He has pressured speech and reports that he is homeless and has been off of all of his medications for a while including his psychiatric medications. He reports feeling extremely paranoid and says that he is being followed. He says that gang members are pretending to be psych patient's so that they can watch him and try to kidnap him. He also reports that he wants to end his life and has a plan to walk in front of traffic. He says he has command auditory hallucinations telling him to end his life. He denies homicidal ideation. He denies visual h allucinations. At the end of the interview only when prompted that he mentioned that he also has a headache. Denies any recent trauma. He denies any other physical symptoms or complaints. He says he smoked marijuana today but denies any other substance use. The patient was seen this morning. He is in seclusion. The patient presents with paranoia, and disorganized thoughts stating "gang members are here doing the same thing I'm doing. " The patient became loud and verbally aggressive. PAST PSYCHIATRIC HISTORY Diagnoses: Schizophrenia, bipolar Suicide attempts or Self-harm behavior: Denies Prior psychiatric hospitalizations: Yes Substance Abuse history: weed, crack, alcohol Previous psychiatric medications tried: risperidone, depakote, wellbutrin, trazodone Outpatient treatment: Yes PAST MEDICAL HISTORY: None reported Family Psychiatric History: None reported or documented SOCIAL HISTORY Marital Status: Single Living Arrangements: with different people Employment Status: Unemployed Access to guns/weapons: Denies Education: high school History of Abuse: none reported Legal History: none REVIEW OF SYSTEMS Constitutional: Negative for weight loss ENT: Negative for stridor Respiratory: Negative for cough or hemoptysis All other systems reviewed and are negative MENTAL STATUS EXAMINATION General Appearance and Behavior: Age appropriate, not wearing appropriate clothes, fair eye contact, irritable Cooperation: Engaged Psychomotor Behavior: Psychomotor normal Mood: agitated Affect and affective range: congruent to stated mood Thought Process: Disorganized Thought Content: paranoid Speech: Normal tone and pace Suicidal Ideation: unable to assess Homicidal Ideation: unable to assess Hallucinations: unable to assess Delusions: None elicited Insight and Judgment: Limited insight and poor judgment Memory: impaired Attention: divided attention impaired Orientation: Alert, oriented Assessment: Polysubstance abuse with substance Induced Mood Disorder Treatment Plan Continue home medications. Risks, benefits and alternatives of medications discussed with the patient, questions answered and consent obtained from patient. PSYCHOTHERAPY: Supportive psychotherapy provided MEDICAL: Per primary team DELIRIUM PRECAUTIONS: Please re-orient patient frequently, keep lights on during the day, and minimize benzodiazepines and opiates as these medications could worsen patient's confusion. ENLISTED AIRCREW/AERIAL OBSERVER/GUNNER: per primary DISPOSITION: Recommend acute psychiatric treatment. Will follow. Thank you for the consult. Please contact with any questions and/or concerns. Case discussed with Dr. Singleton who agrees with current disposition Medications and Allergies Medications and Allergies Allergies Allergy/AdvReac Type Severity Reaction Status Date / Time No Known Allergies Allergy Verified 12/25/19 11:50 Home Medications Medication Instructions Recorded Confirmed Last Taken Type OLANZapine [Zyprexa] 15 mg PO DAILY 02/20/20 02/20/20 Unknown History Wellbutrin 150 mg PO DAILY 02/20/20 02/20/20 Unknown History traZODone [Desyrel] 50 mg PO QHS 02/20/20 02/20/20 Unknown History Divalproex ER [DepaKOTE ER] 250 mg PO TID #21 tablet 02/21/20 Unknown Rx Mental Status Exam - Vital signs Last Vital Signs Temp 98.6 F 04/02/21 22:34 Pulse 60 04/02/21 22:34 Resp 20 04/02/21 22:34 BP 110/68 04/02/21 22:34 Pulse Ox 100 04/02/21 22:34 Results Result Diagrams: 04/02/21 22:53 04/02/21 22:53 Abnormal lab results 04/02/21 04/02/21 04/02/21 Range/Units 22:53 22:53 22:53 RBC (3.65-5.03) M/mm3 MCV (84-94) fl MCH (28-32) pg MCHC (32-34) % Winkler % (Auto) (0.0-7.3) % Seg Neutrophils % (40.0-70.0) % Carbon Dioxide 17 L (22-30) mmol/L Salicylates < 0.3 L (2.8-20.0) mg/dL Acetaminophen 5.0 L (10.0-30.0) ug/mL 04/02/21 Range/Units 22:53 RBC 5.25 H (3.65-5.03) M/mm3 MCV 81 L (84-94) fl MCH 25 L (28-32) pg MCHC 31 L (32-34) % Winkler % (Auto) 8.0 H (0.0-7.3) % Seg Neutrophils % 70.3 H (40.0-70.0) % Carbon Dioxide (22-30) mmol/L Salicylates (2.8-20.0) mg/dL Acetaminophen (10.0-30.0) ug/mL All other labs normal.
--- NOTE | 2021-04-03 11:38 | Emergency Department Report ---
Blank Doc - Documentation Documentation: Patient has been medically cleared. She had been seen by psychiatric services this morning and cleared. It was not felt that admission was necessary or indicated. Patient will be discharged with outpatient resources.
== END 2021-04-03 12:58 | disposition home or self-care (01) ==
LOC: ED 20:05
DX: F31.9 Bipolar disorder, unspecified (principal); F20.9 Schizophrenia, unspecified; G43.909 Migraine, unspecified, not intractable, without status migrainosus; F17.200 Nicotine dependence, unspecified, uncomplicated; F12.10 Cannabis abuse, uncomplicated; R45.851 Suicidal ideations
CPT/HCPCS: 36415; 80048; 80320; 85025; 99284; G0480

== ENCOUNTER 2021-04-03 22:48 | Emergency (ER) | payer SELFPAY ==
--- NOTE | 2021-04-03 23:13 | Emergency Department Report ---
HPI - General Chief Complaint: Psych Time Seen by Provider: 04/03/21 22:55 - HPI HPI: [facility] The patient is a 31-year-old male present with a chief complaint of suicidal ideation. Patient states he is felt suicidal "for some time." Patient states maureen woodward attempted to harm himself earlier today by walking into traffic but he was not struck. Patient also admits to auditory hallucinations and insomnia. ED Past Medical Hx - Past Medical History Hx Hypertension: Yes Hx Headaches / Migraines: Yes Hx Psychiatric Treatment: Yes (Bipolar, schizophrenia, PTSD, depression) Additional medical history: anemia - Surgical History Past Surgical History?: No - Family History Family history: no significant - Social History Smoking Status: Current Every Day Smoker (2 packs/day) Substance Use Type: Alcohol (3-6 beers daily), Cocaine (Crack cocaine), Marijuana - Medications Home Medications: Home Medications Medication Instructions Recorded Confirmed Last Taken Type OLANZapine [Zyprexa] 15 mg PO DAILY 02/20/20 02/20/20 Unknown History Wellbutrin 150 mg PO DAILY 02/20/20 02/20/20 Unknown History traZODone [Desyrel] 50 mg PO QHS 02/20/20 02/20/20 Unknown History Divalproex ER [DepaKOTE ER] 250 mg PO TID #21 tablet 02/21/20 Unknown Rx ED Review of Systems ROS: Stated complaint: SI Other details as noted in HPI Constitutional: no symptoms reported Eyes: denies: eye pain ENT: denies: throat pain Respiratory: no symptoms reported Cardiovascular: denies: chest pain Endocrine: no symptoms reported Gastrointestinal: denies: abdominal pain Genitourinary: denies: dysuria Neurological: denies: headache Psychiatric: auditory hallucinations, suicidal thoughts Physical Exam - Physical Exam Vital Signs: Vital Signs 04/03/21 22:55 Temperature 97.9 F Pulse Rate 76 Respiratory 18 Rate Blood Pressure 110/78 [Left] O2 Sat by Pulse 98 Oximetry Physical Exam: GENERAL: The patient is well-developed well-nourished male sitting on stretcher not appearing to be in acute distress. [] HEENT: Normocephalic. Atraumatic. Extraocular motions are intact. Patient has moist mucous membranes. NECK: Supple. Trachea midline CHEST/LUNGS: Clear to auscultation. There is no respiratory distress noted. HEART/CARDIOVASCULAR: Regular. There is no tachycardia. There is no gallop rub or murmur. ABDOMEN: Abdomen is soft, nontender. Patient has normal bowel sounds. There is no abdominal distention. SKIN: There is no rash. There is no edema. There is no diaphoresis. NEURO: The patient is awake, alert, and oriented. The patient is cooperative. The patient has no focal neurologic deficits. The patient has normal speech. GCS 15 MUSCULOSKELETAL: There is no evidence of acute injury. ED Course Vital Signs 04/03/21 22:55 Temperature 97.9 F Pulse Rate 76 Respiratory 18 Rate Blood Pressure 110/78 [Left] O2 Sat by Pulse 98 Oximetry ED Medical Decision Making - Differential Diagnosis Suicidal ideation Critical care attestation.: If time is entered above; I have spent that time in minutes in the direct care of this critically ill patient, excluding procedure time. ED Disposition Clinical Impression: Suicidal thoughts Disposition: [facility] Is pt being admited?: No Does the pt Need Aspirin: No Condition: Stable Referrals: PRIMARY CARE, [Primary Care Provider] - 3-5 Days
[2021-04-03 23:53] LABS: Basophils % (Auto) 0.3 % (0.0-1.8); Eosinophils # (Auto) 0.1 K/mm3 (0.0-0.4); Hemoglobin 13.8 gm/dl (11.8-15.2); Lymphocytes % (Auto) 35.7 % (13.4-35.0); Monocytes # (Auto) 0.5 K/mm3 (0.0-0.8); Monocytes % (Auto) 9.7 % (0.0-7.3)
[2021-04-04 00:13] LABS: Alanine Aminotransferase 22 units/L (7-56); Albumin 5.1 g/dL (3.9-5); BUN/Creatinine Ratio 18; Blood Urea Nitrogen 14 mg/dL (9-20); Calcium 9.4 mg/dL (8.4-10.2); Hemolysis Index 2
[2021-04-04 00:23] LABS: Hematocrit 44.2 % (35.5-45.6); Mean Corpuscular HGB Conc 31 % (32-34); Mean Corpuscular Volume 81 fl (84-94); Mean Platelet Volume 7.7 fl (6-12); Platelet Count 266 K/mm3 (140-440); Red Blood Count 5.43 M/mm3 (3.65-5.03); Red Cell Distribution Width 15.1 % (13.2-15.2)
[2021-04-04 08:22] VITALS: BP 110/72
--- NOTE | 2021-04-04 12:09 | Consultation ---
History of Present Illness - Reason for Consult Consult date: 04/04/21 Reason for consult: mental health evaluation - History of Present Psychiatric Illness ED Note: The patient is a 31-year-old male present with a chief complaint of suicidal ideation. Patient states he is felt suicidal "for some time." Patient states he attempted to harm himself earlier today by walking into traffic but he was not struck. Patient also admits to auditory hallucinations and insomnia. The patient is a 31 year old male with history of schizophrenia and bipolar. The patient is verbal aggressive, asked if this com writer is a doctor and he states " get the F off my face." The patient is homeless and is well known to this establishment. Do not recommend inpatient at this time. Patron Attendant will provide patient with psychiatric out-patient resources. The patient was seen this morning. He is in seclusion. The patient presents with paranoia, and disorganized thoughts stating "gang members are here doing the same thing I'm doing. " The patient became loud and verbally aggressive. PAST PSYCHIATRIC HISTORY Diagnoses: Schizophrenia, bipolar Suicide attempts or Self-harm behavior: Denies Prior psychiatric hospitalizations: Yes Substance Abuse history: weed, crack, alcohol Previous psychiatric medications tried: risperidone, depakote, wellbutrin, trazodone Outpatient treatment: Yes PAST MEDICAL HISTORY: None reported Family Psychiatric History: None reported or documented SOCIAL HISTORY Marital Status: Single Living Arrangements: with different people Employment Status: Unemployed Access to guns/weapons: Denies Education: high school History of Abuse: none reported Legal History: none REVIEW OF SYSTEMS Constitutional: Negative for weight loss ENT: Negative for stridor Respiratory: Negative for cough or hemoptysis All other systems reviewed and are negative MENTAL STATUS EXAMINATION General Appearance and Behavior: Age appropriate, not wearing appropriate clothes, fair eye contact, irritable Cooperation: Engaged Psychomotor Behavior: Psychomotor normal Mood: agitated Affect and affective range: congruent to stated mood Thought Process: goal directed Thought Content: Reality oriented Speech: Normal tone and pace Suicidal Ideation: unable to assess Homicidal Ideation: unable to assess Hallucinations: unable to assess Delusions: None elicited Insight and Judgment: Limited insight and poor judgment Memory: impaired Attention: divided attention impaired Orientation: Alert, oriented Assessment: Polysubstance abuse with substance Induced Mood Disorder [id number] Treatment Plan Continue home medications. Risks, benefits and alternatives of medications discussed with the patient, questions answered and consent obtained from patient. PSYCHOTHERAPY: Supportive psychotherapy provided MEDICAL: Per primary team DELIRIUM PRECAUTIONS: Please re-orient patient frequently, keep lights on during the day, and minimize benzodiazepines and opiates as these medications could worsen patient's confusion. SHELLFISH MANAGER: per primary DISPOSITION: Do not recommend acute psychiatric treatment. Will sign off. Thank you for the consult. Please contact with any questions and/or concerns. Case discussed with Dr. Singleton who agrees with current disposition Medications and Allergies Medications and Allergies Allergies Allergy/AdvReac Type Severity Reaction Status Date / Time No Known Allergies Allergy Verified 12/25/19 11:50 Home Medications Medication Instructions Recorded Confirmed Last Taken Type OLANZapine [Zyprexa] 15 mg PO DAILY 02/20/20 02/20/20 Unknown History Wellbutrin 150 mg PO DAILY 02/20/20 02/20/20 Unknown History traZODone [Desyrel] 50 mg PO QHS 02/20/20 02/20/20 Unknown History Divalproex ER [DepaKOTE ER] 250 mg PO TID #21 tablet 02/21/20 Unknown Rx Mental Status Exam - Vital signs Last Vital Signs Temp 97.7 F 04/04/21 08:21 Pulse 86 04/04/21 08:21 Resp 16 04/04/21 08:21 BP 110/72 04/04/21 08:21 Pulse Ox 100 04/04/21 08:21 Results Result Diagrams: 04/03/21 23:13 04/03/21 23:13 Abnormal lab results 04/03/21 04/03/21 04/03/21 Range/Units 23:13 23:13 23:13 RBC 5.43 H (3.65-5.03) M/mm3 MCV 81 L (84-94) fl MCH 25 L (28-32) pg MCHC 31 L (32-34) % Lymph % (Auto) 35.7 H (13.4-35.0) % Tripp % (Auto) 9.7 H (0.0-7.3) % Albumin (3.9-5) g/dL Salicylates < 0.3 L (2.8-20.0) mg/dL Acetaminophen 5.0 L (10.0-30.0) ug/mL Valproic Acid < 2.8 L (50-100) ug/mL 04/03/21 Range/Units 23:13 RBC (3.65-5.03) M/mm3 MCV (84-94) fl MCH (28-32) pg MCHC (32-34) % Lymph % (Auto) (13.4-35.0) % Tripp % (Auto) (0.0-7.3) % Albumin 5.1 H (3.9-5) g/dL Salicylates (2.8-20.0) mg/dL Acetaminophen (10.0-30.0) ug/mL Valproic Acid (50-100) ug/mL All other labs normal.
--- NOTE | 2021-04-04 12:45 | Emergency Department Report ---
Blank Doc - Documentation Documentation: 31-year-old male placed on 1013 by initial ED provider. Patient was evaluated by mental health and 1013 discontinued with a diagnosis of polysubstance abuse and substance-induced mood disorder. Patient discharged to continue his home medications as per mental health recommendation
== END 2021-04-04 13:30 | disposition home or self-care (01) ==
LOC: EEVIPCON 22:48 → ED 22:48
DX: F31.9 Bipolar disorder, unspecified (principal); F20.9 Schizophrenia, unspecified; R45.851 Suicidal ideations; I10 Essential (primary) hypertension; G43.909 Migraine, unspecified, not intractable, without status migrainosus; F43.10 Post-traumatic stress disorder, unspecified; F17.200 Nicotine dependence, unspecified, uncomplicated; F14.10 Cocaine abuse, uncomplicated; F12.10 Cannabis abuse, uncomplicated
CPT/HCPCS: 36415; 80053; 80164; 80320; 85025; 99283; G0480

== ENCOUNTER 2021-05-11 23:21 | Emergency (ER) | payer SELFPAY ==
[2021-05-12] MEDS ORDERED: ACETAMINOPHEN 500 MG TAB PO ONE (01:19)
--- NOTE | 2021-05-12 01:34 | Emergency Department Report ---
ED Extremity Problem HPI - General Stated complaint: BILATERAL FOOT PAIN X 2 WKS Source: patient Limitations: No Limitations - History of Present Illness Initial comments: Patient is a 31-year-old -U[place] male with a history of PTSD, bipolar disorder, paranoid schizophrenia, anxiety and depression as well as hypertension and chronic anemia who presents to the ED with complaint of acute onset persistent bilateral foot pain after walking extensively in the street. Patient states that the pain is especially worse with ambulation. Patient denies fall, traumatic injury, nausea and vomiting, chest pain, shortness of breath, fever, chills, cough, sore throat or back pain and heavy lifting. MD Complaint: extremity pain (BILATERAL FEET PAIN, WALKING A LOT) -: Gradual, week(s) (2) Location: bilateral lower extremity (Bilateral foot pain) History of Same: Yes (chronic) -: Yes myalgia, Yes arthralgia Radiation: distal Severity scale (0 -10): 4 Quality: aching, sharp Consistency: constant Improves with: nothing Worsens with: weight bearing, walking, exertion, palpation Associated Symptoms: denies other symptoms, arthralgias. denies: chest pain, shortness of breath, fever, myalgias, rash, other - Related Data Home Medications Medication Instructions Recorded Confirmed Last Taken No Known Home Medications [No 05/12/21 05/12/21 Unknown Reported Home Medications] Allergies Allergy/AdvReac Type Severity Reaction Status Date / Time No Known Allergies Allergy Verified 12/25/19 11:50 ED Review of Systems ROS: Stated complaint: BILATERAL FOOT PAIN X 2 WKS Other details as noted in HPI Constitutional: denies: chills, fever Eyes: denies: eye pain, eye discharge, vision change ENT: denies: ear pain, throat pain Respiratory: denies: cough, shortness of breath, wheezing Cardiovascular: denies: chest pain, palpitations Endocrine: no symptoms reported Gastrointestinal: denies: abdominal pain, nausea, diarrhea Genitourinary: denies: urgency, dysuria Musculoskeletal: arthralgia (Bilateral foot pain). denies: back pain, joint swelling Skin: denies: rash, lesions Neurological: denies: headache, weakness, paresthesias Psychiatric: denies: anxiety, depression Hematological/Lymphatic: denies: easy bleeding, easy bruising ED Past Medical Hx - Past Medical History Hx Hypertension: Yes Hx Headaches / Migraines: Yes Hx Psychiatric Treatment: Yes (Bipolar, schizophrenia, PTSD, depression) Additional medical history: anemia - Social History Smoking Status: Current Every Day Smoker Substance Use Type: Alcohol, Cocaine, Marijuana - Medications Home Medications: Home Medications Medication Instructions Recorded Confirmed Last Taken Type No Known Home Medications [No 05/12/21 05/12/21 Unknown History Reported Home Medications] ED Physical Exam - General Limitations: No Limitations General appearance: alert, in no apparent distress - Head Head exam: Present: atraumatic, normocephalic, normal inspection - Eye Eye exam: Present: normal appearance, PERRL, EOMI Pupils: Present: normal accommodation - ENT ENT exam: Present: normal exam, normal orophraynx, mucous membranes moist, TM's normal bilaterally, normal external ear exam - Neck Neck exam: Present: normal inspection, full ROM. Absent: tenderness - Respiratory Respiratory exam: Present: normal lung sounds bilaterally. Absent: respiratory distress, wheezes, rales, stridor, chest wall tenderness, accessory muscle use, decreased breath sounds, other - Cardiovascular Cardiovascular Exam: Present: regular rate, normal rhythm, normal heart sounds. Absent: systolic murmur, diastolic murmur, rubs, gallop - GI/Abdominal GI/Abdominal exam: Present: soft, normal bowel sounds. Absent: tenderness, guarding, rebound, hyperactive bowel sounds, hypoactive bowel sounds, mass - Extremities Exam Extremities exam: Present: normal inspection, full ROM, tenderness (Palpable bilateral foot tenderness), normal capillary refill. Absent: pedal edema, joint swelling, calf tenderness - Back Exam Back exam: Present: normal inspection, full ROM. Absent: tenderness, CVA tenderness (R), CVA tenderness (L), muscle spasm, paraspinal tenderness, vertebral tenderness - Neurological Exam Neurological exam: Present: alert, oriented X3, CN II-XII intact, normal gait, reflexes normal - Psychiatric Psychiatric exam: Present: normal affect, normal mood - Skin Skin exam: Present: warm, dry, intact, normal color. Absent: rash ED Course Vital Signs 05/12/21 05/12/21 01:35 03:06 Pulse Rate 70 Respiratory 14 14 Rate Blood Pressure 116/67 [Right] O2 Sat by Pulse 100 Oximetry ED Medical Decision Making - Medical Decision Making This is a 31-year-old -[place] male with a history of PTSD, bipolar disorder, paranoid schizophrenia, anxiety and depression as well as hypertension and chronic anemia who presents to the ED with complaint of acute onset persistent bilateral foot pain after walking extensively in the street. Patient states that the pain is especially worse with ambulation. In the ED, patient is alert and oriented x3 and is not in any distress. Patient was treated in the ED for pain, also given a meal tray and discharged home. Patient was advised to follow-up with his primary care physician as needed in 7 to 10 days for reevaluation. Patient is advised return to the ED immediately if symptoms get worse. - Differential Diagnosis Muscle strain; muscle spasm; foot sprain; plantar fasciitis Critical care attestation.: If time is entered above; I have spent that time in minutes in the direct care of this critically ill patient, excluding procedure time. ED Disposition Clinical Impression: Bilateral foot pain Muscle strain of lower extremity Qualifiers: Encounter type: initial encounter Laterality: unspecified laterality Qualified Code(s): S86.919A - Strain of unspecified muscle(s) and tendon(s) at lower leg level, unspecified leg, initial encounter Disposition: 01 HOME / SELF CARE / HOMELESS Is pt being admited?: No Does the pt Need Aspirin: No Condition: Stable Instructions: Muscle Strain, [id number] Additional Instructions: Take [id number] pain medication with food as needed, drink plenty of fluids and follow-up with your primary care physician in 7 to 10 days for reevaluation. Return to the ED immediately if symptoms get worse. Referrals: [facility] [Provider Group] - as needed Time of Disposition: 01:34 Print Language: ESTONIAN
[2021-05-12 03:07] VITALS: BP 116/67
== END 2021-05-12 03:29 | disposition home or self-care (01) ==
LOC: ED 23:21
DX: S86.812A Strain of other muscle(s) and tendon(s) at lower leg level, left leg, initial encounter (principal); S86.811A Strain of other muscle(s) and tendon(s) at lower leg level, right leg, initial encounter; I10 Essential (primary) hypertension; G43.909 Migraine, unspecified, not intractable, without status migrainosus; F31.9 Bipolar disorder, unspecified; F20.9 Schizophrenia, unspecified; F17.200 Nicotine dependence, unspecified, uncomplicated; F12.90 Cannabis use, unspecified, uncomplicated; F14.90 Cocaine use, unspecified, uncomplicated; Z72.89 Other problems related to lifestyle; Z79.899 Other long term (current) drug therapy; X58.XXXA Exposure to other specified factors, initial encounter; Y93.89 Activity, other specified; Y92.89 Other specified places as the place of occurrence of the external cause; Y99.8 Other external cause status
CPT/HCPCS: 99282

== ENCOUNTER 2021-05-12 12:21 | Emergency (ER) | payer SELFPAY ==
[2021-05-12] MEDS ORDERED: ZIPRASIDONE MESYLATE 20 MG VIAL IM ONE (12:44)
--- NOTE | 2021-05-12 12:46 | Emergency Department Report ---
ED Psych HPI - General Chief Complaint: Psych Stated Complaint: HEARING VOICES Time Seen by Provider: 05/12/21 12:39 Source: patient Mode of arrival: Ambulatory - History of Present Illness Initial Comments: Patient presents secondary to paranoia. He believes that people are after him. He states that he wants us to call police. He states that he had called the police before coming in and the police had informed him that we should call the police for him. Patient states that [place] is having trouble in multiple counties. Multiple people are after him. He states that he has been walking back and forth between bradycardia and here. He is here for psychiatric help. He states that he is suicidal. He is planning on killing himself. He also states that he feels like hurting other people and wants to kill other people in addition. Patient states that he is hearing voices that are telling him to do these things. He has no chest pain or back pain. There is no cough or congestion. He has no trauma. Has no fevers or chills. There has been no vomiting or diarrhea. He states that this is been ongoing. He has been off and on medications for quite some time to try to help with this. He is not currently taking any medication. - Related Data Home Medications Medication Instructions Recorded Confirmed Last Taken No Known Home Medications [No 05/12/21 05/12/21 Unknown Reported Home Medications] Allergies Allergy/AdvReac Type Severity Reaction Status Date / Time No Known Allergies Allergy Verified 12/25/19 11:50 ED Review of Systems ROS: Stated complaint: HEARING VOICES Other details as noted in HPI Comment: All other systems reviewed and negative Constitutional: denies: fever Eyes: denies: vision change ENT: denies: throat pain Respiratory: denies: cough Cardiovascular: denies: chest pain Endocrine: denies: unexplained weight loss Gastrointestinal: denies: abdominal pain Genitourinary: denies: dysuria Musculoskeletal: denies: back pain Skin: denies: rash Neurological: denies: headache Psychiatric: as per HPI Hematological/Lymphatic: denies: easy bruising ED Past Medical Hx - Past Medical History Hx Hypertension: Yes Hx Headaches / Migraines: Yes Hx Psychiatric Treatment: Yes (Bipolar, schizophrenia, PTSD, depression) Additional medical history: anemia - Family History Family history: hypertension - Social History Smoking Status: Current Every Day Smoker Substance Use Type: Alcohol, Cocaine, Marijuana - Medications Home Medications: Home Medications Medication Instructions Recorded Confirmed Last Taken Type No Known Home Medications [No 05/12/21 05/12/21 Unknown History Reported Home Medications] ED Physical Exam - General Limitations: No Limitations, Other (Pulse ox noted and normal) General appearance: alert, in no apparent distress, anxious, other (Patient is a very soft-spoken for fear of others overhearing what he is saying) - Head Head exam: Present: atraumatic, normocephalic, normal inspection - Eye Eye exam: Present: normal appearance, PERRL, EOMI - ENT ENT exam: Present: normal orophraynx, normal external ear exam - Neck Neck exam: Present: normal inspection. Absent: meningismus - Respiratory Respiratory exam: Present: normal lung sounds bilaterally. Absent: respiratory distress - Cardiovascular Cardiovascular Exam: Present: regular rate, normal rhythm - GI/Abdominal GI/Abdominal exam: Present: soft. Absent: distended - Extremities Exam Extremities exam: Present: normal capillary refill - Back Exam Back exam: Absent: CVA tenderness (R), CVA tenderness (L) - Neurological Exam Neurological exam: Present: alert, oriented X3, CN II-XII intact, normal gait. Absent: motor sensory deficit - Psychiatric Psychiatric exam: Present: agitated, anxious, homicidal ideation, suicidal ideation, other (Patient is paranoid that people are talking about him here in the emergency department. He is concerned that other people can overhear what he is saying.) - Skin Skin exam: Present: warm, dry ED Course Vital Signs 05/12/21 05/12/21 12:41 13:28 Temperature 98.3 F Pulse Rate 68 Respiratory 16 Rate Blood Pressure 117/41 [Left] O2 Sat by Pulse 100 100 Oximetry - Reevaluation(s) Reevaluation #1: 05/12/21 12:46 Labs and meds ordered. Hold (1013) started. Old records noted. Reevaluation #2: 05/12/21 13:58 Care signed out pending labs. ED Medical Decision Making - Medical Decision Making Patient presented secondary to paranoid delusions and suicidal thoughts. He is well-known and this is been an ongoing and chronic problem. He is noncompliant with medication. Labs are pending. Psychiatric evaluation is pending. Critical Care Time: No Critical care attestation.: If time is entered above; I have spent that time in minutes in the direct care of this critically ill patient, excluding procedure time. ED Disposition Clinical Impression: Paranoid delusion, Suicidal ideation Clinical Impression: (Ruled Out): Homicidal ideation Disposition: 30 STILL A PATIENT Is pt being admited?: No Condition: Stable
[2021-05-12 14:17] LABS: Alanine Aminotransferase 31 units/L (7-56); Albumin 4.5 g/dL (3.9-5); Blood Urea Nitrogen 11 mg/dL (9-20); Calcium 9.4 mg/dL (8.4-10.2); Hemolysis Index 22
[2021-05-12 14:22] LABS: Eosinophils # (Auto) 0.1 K/mm3 (0.0-0.4); Hematocrit 37.8 % (35.5-45.6); Hemoglobin 12.7 gm/dl (11.8-15.2); Lymphocytes % (Auto) 32.2 % (13.4-35.0); Mean Corpuscular HGB Conc 34 % (32-34); Mean Corpuscular Volume 81 fl (84-94); Monocytes # (Auto) 0.6 K/mm3 (0.0-0.8); Monocytes % (Auto) 9.2 % (0.0-7.3); Platelet Count 319 K/mm3 (140-440); Red Blood Count 4.67 M/mm3 (3.65-5.03); Red Cell Distribution Width 14.8 % (13.2-15.2)
[2021-05-12 14:30] LABS: BUN/Creatinine Ratio 16
[2021-05-12 15:55] LABS: Bilirubin,Urine NEG (Negative); Blood,Urine NEG (Negative); Color,Urine Straw (Yellow); Mucus,Urine FEW /HPF; Protein,Urine <15 mg/dL mg/dL (Negative); Urobilinogen,Urine < 2.0 mg/dL (<2.0)
[2021-05-12 16:02] LABS: Amphetamine Screen,Urine Negative; Benzodiazepines Screen,Urine Negative; Cocaine Screen,Urine Negative; Methadone Screen,Urine Negative; Opiate Screen,Urine Negative
[2021-05-12 16:26] LABS: Cannabinoid Screen,Urine Positive
--- NOTE | 2021-05-13 11:23 | Consultation ---
History of Present Illness - Reason for Consult Consult date: 05/13/21 Reason for consult: Homicidal ideation - History of Present Psychiatric Illness ED Note: Patient presents secondary to paranoia. He believes that people are after him. He states that he wants us to call police. He states that he had called the police before coming in and the police had informed him that we should call the police for him. Patient states that he is having trouble in multiple counties. Multiple people are after him. He states that he has been walking back and forth between bradycardia and here. He is here for psychiatric help. He states that he is suicidal. He is planning on killing himself. He also states that he feels like hurting other people and wants to kill other people in addition. Patient states that he is hearing voices that are telling him to do these things. He has no chest pain or back pain. There is no cough or congestion. He has no trauma. Has no fevers or chills. There has been no vomiting or diarrhea. He states that this is been ongoing. He has been off and on medications for quite some time to try to help with this. He is not currently taking any medication. The patient is a 31 year old male with history of Schizophrenia, bipolar disorder who presents to the ED with paranoia. In my interview with the patient, he was seen with a sheet wrapped around his head. The patient is paranoid, stating " the police keeps following me, I feel like hurting somebody." The patient endorses being depressed and suicidal ideation with a plan to get hit by a moving car. The patient reports having command auditory hallucinations " voices saying to hurt myself and I have been hearing the police. " PAST PSYCHIATRIC HISTORY Diagnoses: Schizophrenia, bipolar Suicide attempts or Self-harm behavior: Denies Prior psychiatric hospitalizations: Yes Substance Abuse history: weed, crack, alcohol Previous psychiatric medications tried: risperidone, depakote, wellbutrin, trazodone Outpatient treatment: Yes PAST MEDICAL HISTORY: None reported Family Psychiatric History: None reported or documented SOCIAL HISTORY Marital Status: Single Living Arrangements: with different people Employment Status: Unemployed Access to guns/weapons: Denies Education: high school History of Abuse: none reported Legal History: none REVIEW OF SYSTEMS Constitutional: Negative for weight loss ENT: Negative for stridor Respiratory: Negative for cough or hemoptysis All other systems reviewed and are negative MENTAL STATUS EXAMINATION General Appearance and Behavior: Age appropriate, not wearing appropriate clothes, fair eye contact, Cooperation: Engaged Psychomotor Behavior: Psychomotor normal Mood: Depressed Affect and affective range: Restricted Thought Process: Circumstantial Thought Content: Hallucinations/ paranoid Speech: Normal tone and pace Suicidal Ideation: Yes Homicidal Ideation: Denies Hallucinations: Auditory - command Delusions:Paranoid Insight and Judgment: Limited insight and judgment Memory: Normal Attention: divided attention impaired Orientation: Alert, oriented Assessment: Schizophrenia 1013 Treatment Plan Continue home medications. Start Zyprexa 5mg po Bid Start Trazodone 50mg po QHS Risks, benefits and alternatives of medications discussed with the patient, questions answered and consent obtained from patient. PSYCHOTHERAPY: Supportive psychotherapy provided MEDICAL: Per primary team DELIRIUM PRECAUTIONS: Please re-orient patient frequently, keep lights on during the day, and minimize benzodiazepines and opiates as these medications could wor sen patient's confusion. HEALTH CARE AIDE: per primary DISPOSITION: Recommend acute psychiatric inpatient treatment. Will follow. Thanks Thank you for the consult. Case discussed with Dr. Singleton who agrees with current disposition Medications and Allergies Medications and Allergies Allergies Allergy/AdvReac Type Severity Reaction Status Date / Time No Known Allergies Allergy Verified 12/25/19 11:50 Home Medications Medication Instructions Recorded Confirmed Last Taken Type No Known Home Medications [No 05/12/21 05/12/21 Unknown History Reported Home Medications] Mental Status Exam - Vital signs Last Vital Signs Temp 99.1 F 05/13/21 10:44 Pulse 60 05/13/21 10:44 Resp 18 05/13/21 10:44 BP 112/70 05/13/21 10:44 Pulse Ox 100 05/13/21 10:44 Results Result Diagrams: 05/12/21 13:27 05/12/21 13:27 Abnormal lab results 05/12/21 05/12/21 05/12/21 Range/Units 13:27 13:27 13:27 MCV 81 L (84-94) fl MCH 27 L (28-32) pg Falls % (Auto) 9.2 H (0.0-7.3) % Creatinine 0.7 L (0.8-1.3) mg/dL AST 46 H (5-40) units/L Salicylates < 0.3 L (2.8-20.0) mg/dL Acetaminophen (10.0-30.0) ug/mL 05/12/21 Range/Units 13:27 MCV (84-94) fl MCH (28-32) pg Falls % (Auto) (0.0-7.3) % Creatinine (0.8-1.3) mg/dL AST (5-40) units/L Salicylates (2.8-20.0) mg/dL Acetaminophen 5.0 L (10.0-30.0) ug/mL All other labs normal.
--- NOTE | 2021-05-13 11:59 | Emergency Department Report ---
Blank Doc - Documentation Documentation: Patient still has paranoid delusions. He has been seen by psych and the alyciais ion has been made to admit him to a psychiatric hospital once available. He is medically cleared.
[2021-05-13] MEDS ORDERED: ZIPRASIDONE MESYLATE 20 MG VIAL IM PRN (13:25)
[2021-05-13] MEDS ORDERED: traZODone 50 MG TAB PO SCH (22:00)
--- NOTE | 2021-05-14 09:53 | Progress Note ---
Subjective - Reason for Consult Consult date: 05/14/21 Reason for consult: homicidal ideation - Chief Complaint Chief complaint: The patient was seen this morning. he continues to present with paranoia and homicidal ideation " I'm going to hurt somebody." The patient continues to have auditory hallucinations " they're saying a lot." REVIEW OF SYSTEMS Constitutional: Negative for weight loss ENT: Negative for stridor Respiratory: Negative for cough or hemoptysis All other systems reviewed and are negative MENTAL STATUS EXAMINATION General Appearance and Behavior: Age appropriate, not wearing appropriate clothes, fair eye contact, Cooperation: Engaged Psychomotor Behavior: Psychomotor normal Mood: Depressed Affect and affective range: Restricted Thought Process: Circumstantial Thought Content: Hallucinations/ paranoid Speech: Normal tone and pace Suicidal Ideation: Yes Homicidal Ideation: Denies Hallucinations: Auditory - command Delusions:Paranoid Insight and Judgment: Limited insight and judgment Memory: Normal Attention: divided attention impaired Orientation: Alert, oriented Assessment: Schizophrenia 1013 Treatment Plan Continue home medications. ContinueZyprexa 5mg podaily Start Zyprexa 10mg po QHS Continue Trazodone 50mg po QHS Risks, benefits and alternatives of medications discussed with the patient, questions answered and consent obtained from patient. PSYCHOTHERAPY: Supportive psychotherapy provided MEDICAL: Per primary team DELIRIUM PRECAUTIONS: Please re-orient patient frequently, keep lights on during the day, and minimize benzodiazepines and opiates as these medications could worsen patient's confusion. FIELD MECHANICAL METER TESTER: per primary DISPOSITION: Recommend acute psychiatric inpatient treatment. Will follow. Thanks Thank you for the consult. Case discussed with Dr. Singleton who agrees with current disposition Medications and Allergies Mental Status Exam - Vital signs Last Vital Signs Temp 97.9 F 05/14/21 02:26 Pulse 52 L 05/14/21 02:26 Resp 18 05/14/21 02:51 BP 103/58 05/14/21 02:26 Pulse Ox 99 05/14/21 02:51
[2021-05-14 10:55] VITALS: BP 132/93
--- NOTE | 2021-05-14 11:13 | Emergency Department Report ---
Blank Doc - Documentation Documentation: There were no events throughout the course of the night. We are awaiting psyc hiatric placement. Patient has been medically cleared.
[2021-05-14] MEDS ORDERED: IBUPROFEN 600 MG TAB PO ONE (12:17)
== END 2021-05-14 18:12 | disposition still patient (30) ==
LOC: ED 12:21
DX: R45.851 Suicidal ideations (principal); F22 Delusional disorders; I10 Essential (primary) hypertension; F31.9 Bipolar disorder, unspecified; Z20.822 Contact with and (suspected) exposure to COVID-19; F20.9 Schizophrenia, unspecified; F17.200 Nicotine dependence, unspecified, uncomplicated; F12.90 Cannabis use, unspecified, uncomplicated; F14.90 Cocaine use, unspecified, uncomplicated; Z72.89 Other problems related to lifestyle; Z79.899 Other long term (current) drug therapy
CPT/HCPCS: 36415; 80053; 80307; 81001; 84443; 85025; 96372; 99285; J3486; U0003; 80320; G0480